=== PATIENT | female | born 1940 | race Caucasian/White ===

== ENCOUNTER 2023-07-10 00:26 | Emergency (ER) | payer MEDICARE, SELFPAY ==
[2023-07-10] VITALS (11 sets, daily range): BP systolic 197–246; BP diastolic 75–161; BMI 21.6
--- NOTE | 2023-07-10 02:26 | ED.GENMED ---
History of Present Illness
<CADEN Solomon - Last Filed: 07/10/23 05:53>
General
Chief Complaint: Breathing Problem
Source: patient
Exam Limitations: altered mental status
Time Seen by Provider: 07/10/23 02:01
Nursing documentation reviewed up to this point in time: agreed with
Travel History
Have you had any contact with someone who has COVID-19?: No
Do you have any symptoms of coronavirus? Fever > 100 degrees, chills, cough, shortness of breath, sore throat, loss of taste or smell, muscle aches, or headache?: No
History of Present Illness
History of Present Illness:
This is a 82 year old female with history CVA, impaired memory, AAA w/o rupture, CHF, COPD who presents to the ED via ambulance for shortness of breath. Patient is a poor historian and cannot recall why she is at the emergency room. She lives at
home with her son who called the ambulance due to progressive SOB. She received 1 duo neb treatment enroute. She feels comfortable and does not feel like she is SOB. She denies any pain, chest pain, headache, fever or chills.
Past History
<CADEN Solomon - Last Filed: 07/10/23 05:53>
Past History
ED Past Medical History: CVA, HTN, Hypercholesterolemia, Psychiatric (anxiety/depression) and Other (GI bleed)
ED Past Surgical History: Cholecystectomy and Gynecological
Social History
Tobacco: Non-smoker
Alcohol: None
Drug: None
Personal: Other
Living: with family
Employment: Not employed
Family History
Family History: Unable to obtain
Review of Systems
<CADEN Solomon - Last Filed: 07/10/23 05:53>
Review of Systems
Allergies reviewed?: Yes
Unable to obtain full review of systems at this time due to: other
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
All Other Systems: Not applicable
Constitutional: Reports no symptoms
EENT: Reports no symptoms
Respiratory: Reports trouble breathing
Cardiac: Reports no symptoms
ABD/GI: Reports no symptoms
: Reports no symptoms
Musculoskeletal: Reports no symptoms
Skin: Reports no symptoms
Neurological: Reports no symptoms
Endocrine: Reports no symptoms
Hematologic/Lymphatic: Reports no symptoms
Psychiatric: Reports no symptoms
Phy Exam
<CADEN Solomon - Last Filed: 07/10/23 05:53>
General Physical Exam
General Presentation: well appearing and no apparent distress
General Skin: warm and dry
General Habitus: normal
General Mental: alert
General Hydration: appears well hydrated
ENT Exam
ENT Exam: EOMI, pharynx normal, neck supple and normocephalic
Eye Exam
Eye Exam: PERRL, cornea clear and conjunctiva normal
Cardiovascular Exam
Cardiovascular Exam: regular rate/rhythm, no edema, no murmur and normal peripheral pulses
Pulmonary Exam
Pulmonary Exam: no respiratory distress, no stridor and generalized wheezing
Cough: productive cough
Breath Sounds: Wheeze: generalized and Rhonchi: generalized
Gastrointestinal Exam
Gastrointestinal Exam: normal bowel sounds, non tender, soft, no organomegaly, no pulsatile mass and non distended
Neurological Exam
Neurological Exam: alert, oriented x3, no motor deficits and speech normal
Musculoskeletal Exam
Musculoskeletal Exam: full ROM and no edema
Skin Exam
Skin Exam: normal color, warm/dry, no rash and no petechia
Psychiatric Exam
Psychiatric Exam: normal mood/affect
Scores
<CADEN Solomon - Last Filed: 07/10/23 05:53>
Heart Failure Risk
Heart Failure Risk Score: Not Applicable
Course
<CADEN Solomon - Last Filed: 07/10/23 05:53>
Orders/Labs/Results
Orders:
Orders
07/10/23 02:19
Electrocardiogram (*1) Urgent
Reason for Study: Shortness of Breath
EKG- Treatment ONCE
CR Chest - 2 Views Urgent
Comment:
Reason For Exam: cough, SOB
07/10/23 02:46
Complete Blood Count/With Diff Urgent
Comprehensive Metabolic Panel Urgent
NT-proBNP Urgent
Troponin I Urgent
Abnormal Lab Results
07/10/23
02:46
MCHC 32.5 L g/dL
(33.0-37.0)
MPV 10.6 H fL
(7.4-10.4)
Chloride 108 H mmol/L
(98-107)
Carbon Dioxide 31 H mmol/L
(22-30)
BUN 20 H mg/dl
(7-17)
Alkaline Phosphatase 128 H U/L
(38-126)
07/10/23 02:46
07/10/23 02:46
Vital Signs
Initial and Last Documented VS:
Initial Vital Signs
Temp Pulse Resp Pulse Ox
97.6 F 100 26 97
07/10/23 00:28 07/10/23 00:28 07/10/23 00:28 07/10/23 00:28
Last Documented Vital Signs
Temp Pulse Resp BP Pulse Ox
97.6 F 86 17 205/80 96
07/10/23 00:28 07/10/23 05:00 07/10/23 05:00 07/10/23 05:00 07/10/23 05:00
<Rain Whittington DO - Last Filed: 07/10/23 06:48>
Orders/Labs/Results
Orders:
Orders
07/10/23 02:19
Electrocardiogram (*1) Urgent
Reason for Study: Shortness of Breath
EKG- Treatment ONCE
CR Chest - 2 Views Urgent
Comment:
Reason For Exam: cough, SOB
07/10/23 02:46
Complete Blood Count/With Diff Urgent
Comprehensive Metabolic Panel Urgent
NT-proBNP Urgent
Troponin I Urgent
Abnormal Lab Results
07/10/23
02:46
MCHC 32.5 L g/dL
(33.0-37.0)
MPV 10.6 H fL
(7.4-10.4)
Chloride 108 H mmol/L
(98-107)
Carbon Dioxide 31 H mmol/L
(22-30)
BUN 20 H mg/dl
(7-17)
Alkaline Phosphatase 128 H U/L
(38-126)
07/10/23 02:46
07/10/23 02:46
Vital Signs
Initial and Last Documented VS:
Initial Vital Signs
Temp Pulse Resp Pulse Ox
97.6 F 100 26 97
07/10/23 00:28 07/10/23 00:28 07/10/23 00:28 07/10/23 00:28
Last Documented Vital Signs
Temp Pulse Resp BP Pulse Ox
97.6 F 86 17 205/80 96
07/10/23 00:28 07/10/23 05:00 07/10/23 05:00 07/10/23 05:00 07/10/23 05:00
<CADEN Solomon - Last Filed: 07/10/23 05:53>
*Critical Care Note
Total Time (30-74mins, 75-104mins- exclusive of procedures): Not Applicable
<Rain Whittington DO - Last Filed: 07/10/23 06:48>
*Radiology
Radiology exam reviewed: preliminary read by ED provider (Chest x-ray is unremarkable)
*Pulse Oximetry
Patient hypoxic: no
*EKG
Interpreted by ED Provider?: Yes
Interpretation: normal
Rate: normal
Rhythm: sinus
[place]: left axis deviation
Interval: normal interval
QRS Pattern: normal QRS
Ischemia: no ischemia
*Store Manager Interpretation
Rate: normal
Interpretation: normal
Rhythm: sinus
ED Attending Note
<CADEN Solomon - Last Filed: 07/10/23 05:53>
-
Portions of this chart may have been created with voice recognition software.� Occasional wrong word or��sound alike� substitutions may have occurred due to the inherent limitations of voice recognition software.
<Rain Whittington DO - Last Filed: 07/10/23 06:48>
ED Attending Note
Patient seen and examined by attending physician: Yes
I performed the substantive portion of visit, reviewed & personally made and approve the management plan that is documented in note by myself or DENISE.: Yes
I performed a history and physical exam of patient and discussed management with resident, I reviewed resident's note and agree with documented findings and plan of care.: Yes
ED Attending Note:
This is an 82-year-old woman who resides at home with her sons. She has prior history of CVA, chronic left hemiparesis, chronically wheelchair-bound/nonambulatory. She has history of chronic, poorly controlled hypertension, pulmonary hypertension,
COPD, hyperlipidemia with last hospitalization November 2020 for treatment of acute hypoxic respiratory insufficiency related to COPD exacerbation as well as hypertensive emergency causing transient acute CHF.
She has history of dementia/poor short-term memory and is a poor historian.
She is brought to the ED via EMS for shortness of breath that is apparently began this afternoon, worsening throughout the evening. She did receive a DuoNeb nebulizer treatment via EMS en route to the hospital.
She is currently feeling well, denies shortness of breath, denies chest pain. She is unsure who called 911 and cannot recall recent events.
She does admit to occasional cough but does not believe she has had a fever.
She denies recent falls, and denies pain.
She does believe she is maintained on medication but cannot recall the names.
GENERAL: 82-year-old woman appears her stated age, appears somewhat chronically debilitated but is awake and alert, oriented x 1. Appears in no acute distress. She is bright and alert, pleasant. Respirations are easy nonlabored. Rare brief dry
cough is noted. Able to speak in full sentences without difficulty.
EYE: pupils equal and reactive. anicteric
NECK: Supple, nontender, no meningismus, no significant adenopathy. Minimal JVD.
ENT: oral mucosa is moist. No rhinorrhea.
CARDIAC: Regular rate and rhythm. no murmur.
LUNGS: no acute respiratory distress, harsh expiratory rhonchi bilaterally.
ABDOMEN: Soft, nondistended, without focal tenderness, normoactive BS.
NEUROLOGICAL: Awake and alert, oriented x 1, left hemiparesis.
SKIN: Warm and dry, minimally pale in color, skin intact. No rash.
MUSCULOSKELETAL: No C/C/E. peripheral pulses are full and equal b/l. No palpable tenderness.
PSYCH: Normal and appropriate interaction.
Concern for exacerbation of COPD, acute CHF, pneumonia.
Significant systolic hypertension noted. Similar systolic hypertension noted on previous visits.
Will check labs, EKG and chest x-ray.
Currently overall comfortable, no respiratory distress, normal pulse ox, afebrile.
07/10/2023 0644 AM
Patient continues to appear comfortable. She does have some expiratory wheezing and rare cough but no respiratory distress. Normal pulse ox.
Labs are unremarkable and reassuring.
Chest x-ray is unremarkable.
I have spoken with her son, Masoud via a telephone call. Due to prior stroke, wheelchair-bound status they have difficulty getting her out of the house thus she has not followed up with a PCP, has been on no medications for quite some time.
Currently appears to have mild exacerbation of COPD but no indication for hospitalization. Will treat with tapering course of prednisone and albuterol for as needed cough, wheezing.
Recommend we resume her previous antihypertensive medications which include lisinopril 10 mg daily, Procardia XL 30 mg daily and recommend resumption of atorvastatin as well.
Would hold off on low-dose aspirin due to prior history of GI bleed.
There is no evidence of CHF thus we will hold off on diuretic.
I have placed a case management consult to help arrange for home health nurse visit, safety evaluation as well as request assistance to establish with a PCP, preferably 1 that makes home visits versus PCP coordination with home health nurse visit.
Both patient and son agreeable with this plan.
Discharge Plan
Departure
Patient Disposition: Home (Routine Discharge)
Date of Disposition: 07/10/23
Time of Disposition: 06:24
Patient with high blood pressure during this ER visit?: No
Condition: Good
Discharge Problem:
COPD exacerbation, Poorly-controlled hypertension
Instructions: Exacerbation of COPD (DC)
Prescriptions:
New
atorvastatin 40 mg tablet
40 mg PO QPM Qty: 30 3RF
albuterol sulfate [ProAir HFA] 90 mcg/actuation Hfa Aerosol Inhaler
2 puff INHALATION Q4HPRN PRN (Reason: shortness of breath/cough) Qty: 90 0RF
Rx Instructions:
Dispense with spacer
lisinopril 10 mg tablet
10 mg PO DAILY Qty: 30 3RF
nifedipine [Procardia XL] 30 mg tablet extended release 24hr
30 mg PO DAILY Qty: 30 3RF
prednisone 10 mg Tablet
See Rx Instructions .ROUTE .COMPLEX Qty: 30 0RF
Rx Instructions:
Take By Mouth:
40 mg daily x3 days, 30 mg daily x3 days,
20 mg daily x3 days, 10 mg daily x3 days.
No Action
acetaminophen [Tylenol] 325 mg Capsule
650 mg PO Q4H PRN (Reason: mild pain)
metoprolol succinate [Toprol XL] 25 mg tablet extended release 24 hr
12.5 mg PO DAILY Qty: 20 1RF
Referrals:
NONE,* [Family Provider] -
Interventions
Interventions:
*Risk Screen - Suicide Last Done: 07/10/23 00:28
*General Assessment Last Done: 07/10/23 00:28
*Neglect/Abuse Screening Last Done: 07/10/23 00:28
ED- Fall Risk Assessment Last Done: 07/10/23 00:39
*ED COVID-19 Vaccine History Last Done: 07/10/23 00:39
ED- Cardiac Assessment Last Done: 07/10/23 00:39
ED- Pulmonary Assessment Last Done: 07/10/23 00:39
Discharge Date and Time
Print Language: FILIPINO
[2023-07-10 03:04] LABS: % Eosinophils 5.7 % (0-6); % Immature Granulocytes 0.2 % (0-0.5); % Lymphocytes 23.1 % (20.5-51.1); % Monocytes 7.6 % (1.7-9.3); % Neutrophils 62.4 % (42.2-75.2); Absolute Basophils 0.1 10^3/uL (0-0.2); Absolute Eosinophils 0.4 10^3/uL (0-0.7); Absolute Lymphocytes 1.5 10^3/uL (1.2-3.4); Absolute Monocytes 0.5 10^3/uL (0.1-0.6); Absolute Neutrophils 3.9 10^3/uL (1.4-6.5); Hematocrit 38.2 % (37.0-47.0); Hemoglobin 12.4 g/dL (12.0-16.0); Mean Corp Hgb Conc. 32.5 g/dL (33.0-37.0); Mean Corpuscular Hgb 28.6 pg (27.0-31.0); Mean Platelet Volume 10.6 fL (7.4-10.4); Nucleated Red Blood Cells % 0 %; Platelet Count 229 10^3/uL (130-400); Red Blood Cell Count 4.34 10^6/uL (4.20-5.40); Red Cell Dist. Width 14.5 % (11.5-14.5); White Blood Cell Count 6.3 10^3/uL (4.8-10.8)
[2023-07-10 03:26] LABS: ALT (SGPT) 11 U/L (0-35); AST (SGOT) 21 U/L (14-36); Albumin 3.8 g/dl (3.5-5.0); Alkaline Phosphatase 128 U/L (38-126); Blood Urea Nitrogen 20 mg/dl (7-17); Calcium 9.1 mg/dl (8.4-10.2); Carbon Dioxide 31 mmol/L (22-30); Chloride 108 mmol/L (98-107); Estimated Creatinine Clearance 46 ml/min; Glucose 90 mg/dl (70-99); Potassium 3.9 mmol/L (3.5-5.1); Sodium 142 mmol/L (135-145); Total Bilirubin 0.4 mg/dl (0.2-1.3); eGFR > 60.00
[2023-07-10 03:39] LABS: NT-proBNP 597 pg/ml; Troponin I < 0.012 ng/ml
[2023-07-10] MEDS: DECADRON 10 MG IV (06:58)
[2023-07-10] MEDS: DUONEB 3 ML INH (06:58)
--- NOTE | 2023-07-10 09:03 | CM ---
CM following re: discharge planning.
CM consulted to assist the pt with setting up PCP and VN services.
Reviewed pt's chart, spoke to pt's son over the phone. Pt left before seeing by CM.
Per son, pt lives with 2 sons in a [place], 1 step to enter, has 2 supportive sons and they help daily. Pt ambulates with a walker, had [facility] in the past and was at [facility] in 2020.
Per son, pt has not been seen by PCP for a few years, her PCP was Tamela Woods and pt's son is not sure whether or not pt still can go to her PCP. CM advised to call PCP office to schedule an appointment. In meantime, pt's son agrees to make a
referral to [facility] and they do have a program to assign a PCP. Pt's son expressed his agreement.
A referral to [facility] care [facility]N made.
PCP: Tamela Woods in the past. [facility] will assign a new PCP
[facility]
D/C plan: home with [facility] and family support
== END 2023-07-10 08:00 | disposition home or self-care (01) ==
LOC: EMR 00:26
PROVIDERS: EMERGENCY PHYSICIAN Emergency Medicine
DX: J44.1 Chronic obstructive pulmonary disease with (acute) exacerbation (principal); I11.0 Hypertensive heart disease with heart failure; I50.9 Heart failure, unspecified; F03.90 Unspecified dementia, unspecified severity, without behavioral disturbance, psychotic disturbance, mood disturbance, and anxiety; E78.00 Pure hypercholesterolemia, unspecified; Z86.79 Personal history of other diseases of the circulatory system; Z90.49 Acquired absence of other specified parts of digestive tract; Z99.3 Dependence on wheelchair
CPT/HCPCS: 99283; 94640; 96374; 71046; 80053; 83880; 84484; 85025; 93005

== ENCOUNTER 2023-12-08 15:13 | Inpatient (IN) | payer MEDICARE, SELFPAY ==
[2023-12-08] VITALS (8 sets, daily range): BP systolic 135–177; BP diastolic 50–97
--- NOTE | 2023-12-08 09:15 | ED.GENMED ---
History of Present Illness
General
Chief Complaint: Rectal Bleeding
Source: patient
Time Seen by Provider: 12/08/23 08:54
History of Present Illness
History of Present Illness:
83-year female with past medical history of CVA with residual chronic left sided deficits, hypertension, hyperlipidemia, previous upper GI bleeding presenting to the emergency department for evaluation from home after patient reported lower
abdominal pain this morning and reportedly dark stool and 1 episode of nonbloody nonbilious emesis. At time of my examination patient is without any specific complaints. History is limited from the patient due to baseline dementia. Patient denies
to me any chest pain, abdominal pain, nausea, vomiting or any other concerns presently.
Past History
Past History
ED Past Medical History: CVA, HTN, Hypercholesterolemia, Psychiatric (anxiety/depression) and Other (GI bleed)
ED Past Surgical History: Cholecystectomy and Gynecological
Social History
Tobacco: Non-smoker
Alcohol: None
Drug: None
Personal: Other
Living: with family
Employment: Not employed
Family History
Family History: Unable to obtain
Review of Systems
Review of Systems
All Other Systems: ROS reviewed and negative except as documented in HPI and ROS
Phy Exam
Physical Exam
Physical Exam:
GENERAL: Alert , in no apparent distress, smiling and pleasantly demented
EYE: clear conjunctiva b/l
HEAD: NCAT
ENT: o/p clr, mmm.
CARDIAC: Regular rate and rhythm, occasional PAC on telemetry .
LUNGS: Clear breath sounds bilaterally, no acute respiratory distress, no wheezes/rales/rhonchi
ABDOMEN: Soft, without focal tenderness, no r/g, no cvat
RECTAL: stool light brown, trace heme positive
NEUROLOGICAL: Alert and oriented
SKIN: Warm and dry, skin intact.
MUSCULOSKELETAL: well perfused.
PSYCH: Normal and appropriate interaction.
Scores
Heart Failure Risk
Heart Failure Risk Score: Not Applicable
Heart Score for Chest Pain Patients
STEMI patient?: Not applicable
Withdrawal Assessment of Alcohol
Withdrawal Assessment Completed?: Not applicable
Course
Orders/Labs/Results
Orders:
Orders
12/08/23 09:13
Type+Screen Urgent
Complete Blood Count/With Diff Urgent
Comprehensive Metabolic Panel Urgent
Lipase Urgent
PTT Urgent
Prothrombin Time Urgent
Diphenhydramine [Benadryl] 50 mg IV NOW STA
Hydrocortisone Sod Succinate [Solu-Cortef] 200 mg IV NOW STA
12/08/23 09:56
0.9% Sodium Chloride 1000 ml [Nss] 1,000 ml IV BOLUS
12/08/23 09:57
CT Abd/pel (oral only)-DH Only Urgent
Comment:
Reason For Exam: lower abd pain, ? bleeding, vomiting
Iohexol [Omnipaque] See Protocol PO NOW STA
12/08/23 11:45
Urinalysis Reflex To Culture Urgent
Date Specimen was Collected: 12/08/23
Time Specimen was Collected: 11:44
Urine Microscopic Reflex Cult Urgent
Urine Culture Urgent
TATIANA Source: U
Specimen Description:
Date Specimen was Collected: 12/08/23
Time Specimen was Collected: 11:44
12/08/23 11:46
CT Head W/o Iv Contrast Urgent
Comment:
Reason For Exam: change in mental status, ? delirium
Abnormal Lab Results
12/08/23 12/08/23
09:13 11:45
MCHC 32.6 L g/dL
(33.0-37.0)
MPV 10.6 H fL
(7.4-10.4)
Absolute Neuts (auto) 7.2 H 10^3/uL
(1.4-6.5)
Absolute Monos (auto) 0.7 H 10^3/uL
(0.1-0.6)
Neutrophils % 75.9 H %
(42.2-75.2)
Lymphocytes % 15.2 L %
(20.5-51.1)
PT 15.4 H Sec
(11.4-14.6)
BUN 25 H mg/dl
(7-17)
Creatinine 1.5 H mg/dL
(0.6-1.0)
Glucose 110 H mg/dl
(70-99)
Lipase 339 H U/L
(23-300)
Urine Ketones Trace A
(Negative)
Ur Occult Blood Reflex 1+ A
(Negative)
Leukocyte Esterase Rfl 1+ A
(Negative)
Urine RBC 3-6 A /HPF
(0-2)
Urine WBC (Reflex) 11-15 A /HPF
(0-5)
Urine Bacteria (Reflex) Few A
(Negative)
12/08/23 09:13
12/08/23 09:13
Vital Signs
Initial and Last Documented VS:
Initial Vital Signs
Temp Pulse Resp Pulse Ox
98.5 F 92 18 97
12/08/23 08:54 12/08/23 08:54 12/08/23 08:54 12/08/23 08:54
Last Documented Vital Signs
Temp Pulse Resp BP Pulse Ox
98.5 F 103 24 177/60 95
12/08/23 08:54 12/08/23 12:30 12/08/23 12:15 12/08/23 12:00 12/08/23 12:30
MDM/Problems Addressed
Differential Diagnosis Includes:
possible early GI bleed, diverticulitis, colitis, gastroenteritis, anemia
MDM/Problems Addressed:
83-year-old female presenting to the emergency department for evaluation after she reportedly had lower abdominal pain this morning, 1 episode of bloody stool and 1 episode of nonbloody nonbilious emesis. Here patient's stool is light brown and
faintly heme positive. She is hemodynamically. Patient with no complaints at this time and states she otherwise feels well. Will check labs and CT imaging of the abdomen and pelvis. Reassessment following
Chronic conditions affecting care: Other (Previous GI bleed)
*Pulse Oximetry
Patient hypoxic: no
*Critical Care Note
Total Time (30-74mins, 75-104mins- exclusive of procedures): Not Applicable
Data Reviewed
Review of Other/Old Records Reveals: Labs and Records
Source: records and ambulance crew
Comment
Comment:
11:40 AM: Family is now at the bedside, they note that over the last week or so patient's mental status is seem to decline, patient very combative at home, hallucinating at times. Difficult to ascertain from family as to how long this has been
going on for the family states it does seem to be worse over a week. Question infectious etiology and possible urinary tract infection but I suspect there is a bigger component to dementia or other type delirium.
Patient Management
Discussion with other providers: Hospitalist
Escalation/DeEscalation of care consider admission/obs:
Patient CT scan shows the following:
IMPRESSION:
Extensive colonic diverticulosis without evidence of acute diverticulitis.
Groundglass opacities within the bilateral lower lobes and lingula measuring up to 2.1 cm, likely related to infectious process. Recommend follow-up CT to ensure resolution.
Infrarenal abdominal aortic aneurysm measuring 3.5 cm.
Moderately distended urinary bladder.
Question pneumonia however patient without cough, fevers or symptoms suggestive of pneumonia so will defer antibiotic to inpatient team. Given family's reported more acute symptoms over the last few days consider delirium. I do suspect that there
is underlying dementia which is the more likely cause. Given patient's age combined with her acute kidney injury and after mentioned symptoms will admit further evaluation and treatment. Hospitalist team aware and accepts for continued evaluation.
ED Attending Note
-
Portions of this chart may have been created with voice recognition software.� Occasional wrong word or��sound alike� substitutions may have occurred due to the inherent limitations of voice recognition software.
Discharge Plan
Departure
Patient Disposition: Admit
Date of Disposition: 12/08/23
Time of Disposition: 14:02
Presentation/result/management discussed w/ accepting MD/DO: Hospitalist
Discharge Problem:
YIN (acute kidney injury), Delirium
Prescriptions:
No Action
atorvastatin 40 mg tablet
40 mg PO QPM Qty: 30 3RF
nifedipine [Procardia XL] 30 mg tablet extended release 24hr
30 mg PO DAILY Qty: 30 3RF
latanoprost 0.005 % Drops
1 drp BOTH EYES HS
lisinopril 40 mg Tablet
40 mg PO DAILY
mirtazapine 7.5 mg Tablet
7.5 mg PO HS
cholecalciferol (vitamin D3) 1,250 mcg (50,000 unit) Tablet
1,250 mcg PO QWEEK
Referrals:
UNKNOWN - PT DOES,NOT KNOW [Family Provider] -
Interventions
Interventions:
*Risk Screen - Suicide Last Done: 12/08/23 08:54
*General Assessment Last Done: 12/08/23 08:54
*Neglect/Abuse Screening Last Done: 12/08/23 08:54
ED- Fall Risk Assessment Last Done: 12/08/23 08:54
*ED COVID-19 Vaccine History Last Done: 12/08/23 08:54
ML-Wjcfqd-Kuustcifet Assessment Last Done: 12/08/23 08:54
ED- Cardiac Assessment Last Done: 12/08/23 08:54
ED- Pulmonary Assessment Last Done: 12/08/23 08:54
Discharge Date and Time
Print Language: PANAMANIAN
[2023-12-08] MEDS: SOLU-CORTEF 200 MG IV (09:18)
[2023-12-08] MEDS: BENADRYL 50 MG IV (09:18)
[2023-12-08 09:25] LABS: % Basophils 0.6 % (0-2); % Eosinophils 0.7 % (0-6); % Immature Granulocytes 0.3 % (0-0.5); % Lymphocytes 15.2 % (20.5-51.1); % Monocytes 7.3 % (1.7-9.3); % Neutrophils 75.9 % (42.2-75.2); Absolute Basophils 0.1 10^3/uL (0-0.2); Absolute Eosinophils 0.1 10^3/uL (0-0.7); Absolute Lymphocytes 1.5 10^3/uL (1.2-3.4); Absolute Monocytes 0.7 10^3/uL (0.1-0.6); Absolute Neutrophils 7.2 10^3/uL (1.4-6.5); Hematocrit 41.1 % (37.0-47.0); Hemoglobin 13.4 g/dL (12.0-16.0); Mean Corp Hgb Conc. 32.6 g/dL (33.0-37.0); Mean Corpuscular Hgb 28.9 pg (27.0-31.0); Mean Corpuscular Volume 88.6 fL (81.0-99.0); Mean Platelet Volume 10.6 fL (7.4-10.4); Nucleated Red Blood Cells % 0 %; Platelet Count 266 10^3/uL (130-400); Red Blood Cell Count 4.64 10^6/uL (4.20-5.40); Red Cell Dist. Width 14.3 % (11.5-14.5); White Blood Cell Count 9.5 10^3/uL (4.8-10.8)
[2023-12-08 09:32] LABS: INR 1.22; PT 15.4 Sec (11.4-14.6)
[2023-12-08 09:33] LABS: APTT 32.8 Sec (23.4-35.0)
[2023-12-08 09:34] LABS: ALT (SGPT) 15 U/L (0-35); AST (SGOT) 31 U/L (14-36); Albumin 4.8 g/dl (3.5-5.0); Alkaline Phosphatase 95 U/L (38-126); Blood Urea Nitrogen 25 mg/dl (7-17); Calcium 10.2 mg/dl (8.4-10.2); Carbon Dioxide 28 mmol/L (22-30); Chloride 101 mmol/L (98-107); Glucose 110 mg/dl (70-99); Lipase 339 U/L (23-300); Potassium 3.5 mmol/L (3.5-5.1); Sodium 145 mmol/L (135-145); eGFR 34.15
[2023-12-08] MEDS: NSS 1000 IV (10:29)
[2023-12-08] MEDS: OMNIPAQUE 50 ML PO (10:30)
[2023-12-08 12:13] LABS: Urine Albumin Trace (Neg - Trace); Urine Bilirubin Negative (Negative); Urine Character Clear (Clear); Urine Color Yellow; Urine Glucose Negative (Negative); Urine Ketone Trace (Negative); Urine Leukocyte 1+ (Negative); Urine Nitrite Negative (Negative); Urine Occult Blood 1+ (Negative); Urine Urobilinogen Negative (Neg - 1+)
[2023-12-08 12:22] LABS: Urine Squamous Cell 21-25 /LPF (Few)
[2023-12-08 12:23] LABS: Urine Amorphous Seen
[2023-12-08 12:28] LABS: Urine Bacteria Few (Negative)
[2023-12-08 12:29] LABS: Urine Granular Cast 0-2 /LPF (0)
--- NOTE | 2023-12-08 14:53 | HPS.HSE ---
Family Physician
-
Family Physician: NOT KNOW UNKNOWN - PT DOES
Chief Complaint
-
delirium, GI bleed
History of Present Illness
83 y/o F, hx of HTN, HLD, hx of CVA, hx of dementia, anxiety/depression presents to ER with family. They report 1 week decline in her mental status with more confusion and hallucinations compared to baseline (more alert, confused minimally in line
with dementia). This AM, son noticed that patient had blood on her sheet and states he noted what appeared to a bloody BM so brought her to ER For evaluation. No other symptoms reported. In ER, patient somnolent, more confused than baseline.
ER evaluation revealed YIN, heme+ stools
CT Abd negative for abdominal pathology, CT head negative
Medical History
Past Medical History
Past Medical History: Reports Other (hx of HTN, HLD, hx of CVA, hx of dementia, anxiety/depression)
Past Surgical History: Reports Cholecystectomy and Other (hysterectomy)
Social History
Unable to obtain full social history at this time due to: Dementia
Tobacco: Non-smoker
Alcohol: None
Personal:
Living: With Family
Employment: Not Employed
Family History
Family History: Not pertinent
Allergies / Home Medications
Allergies reflects when Allergies were last updated in [employer].
Home Medications with original date entered in [employer]
Allergy/Medication List:
Allergies
Allergy/AdvReac Type Severity Reaction Status Date / Time
aspirin Allergy Unknown internal Verified 01/15/22 11:38
bleeding,avoids
due to GI
bleed
codeine Allergy Unknown Rash 'very Verified 01/15/22 11:38
sick'
Iodinated Contrast Media Allergy LIVER Verified 01/15/22 11:38
[Iodinated Contrast Media - FAILURE;
IV Dye] lip
swelling
penicillin Allergy Unknown Rash Uncoded 01/15/22 11:40
Home Medications
atorvastatin 40 mg tablet 40 mg PO QPM #30 tabs 07/10/23
nifedipine 30 mg tablet,extended release 24 hr (Procardia XL) 30 mg PO DAILY #30 tabs 07/10/23
cholecalciferol (vitamin D3) 1,250 mcg (50,000 unit) tablet 1,250 mcg PO QWEEK 12/08/23
latanoprost 0.005 % eye drops 1 drp BOTH EYES HS 12/08/23
lisinopril 40 mg tablet 40 mg PO DAILY 12/08/23
mirtazapine 7.5 mg tablet 7.5 mg PO HS 12/08/23
Review of Systems
-
Unable to obtain full review of systems at this time due to: Acuity
Physical Exam
Vital Signs
Vital Signs
Temp Pulse Resp BP Pulse Ox
98.5 F 103 17 177/60 95
12/08/23 08:54 12/08/23 12:30 12/08/23 14:00 12/08/23 12:00 12/08/23 12:30
Physical Exam
General: No Apparent Distress and Appears Chronically Ill
HEENT: NormoCephalic and Anicteric
Respiratory: No Wheezes
Cardiac: S1/S2 and Regular Rhythm
GI: Soft and Non Distended
Neuro: Other (lethargic)
Psych: Calm
Laboratory Results
-
12/08/23 09:13
12/08/23 09:13
Laboratory Results
PT 15.4 Sec (11.4-14.6) H 12/08/23 09:13
INR 1.22 12/08/23 09:13
APTT 32.8 Sec (23.4-35.0) 12/08/23 09:13
Total Bilirubin 1.0 mg/dl (0.2-1.3) 12/08/23 09:13
AST 31 U/L (14-36) 12/08/23 09:13
ALT 15 U/L (0-35) 12/08/23 09:13
Alkaline Phosphatase 95 U/L (38-126) 12/08/23 09:13
Lipase 339 U/L (23-300) H 12/08/23 09:13
Data Reviewed
-
CT Scan: Report Reviewed by me
Lab Data: Labs Reviewed by me
Impression/Plan
-
Assessment:
Acute TME - unclear etiology
History of underlying dementia, unknown subtype
- CT head negative, consider MRI
- EEG
- metabolic workup ordered, b12, folate, TSH, Ammonia
- UA slightly positive; check culture
- CT abd: Ground-glass opacities within the bilateral lower lobes and lingula measuring up to 2.1 cm, likely related to infectious process. dedicated CT chest ordered. ? aspiration -> ST eval.
- with above concerns for possible infections, start empiric Cefepime, day 1
YIN, likely pre-renal
- hold nephrotoxins
- check urine Na, Cr; bladder scans
- continue IVF
Suspected Lower GI bleed
- family reports bloody BM, blood on clothes
- CT with diverticulosis; possible diverticular bleed?
- Hb is currently stable although could be concentrated; will monitor closely
- GI consulted
Essential HTN with urgency
- holding Procardia and Lisinopril
- Prn Hydralazine ordered
HLD
Hx of CVA
- hold statin
anxiety/depression
- hold Remeron
DVT ppx: SCDs with concern of GI bleed
Code: Full
d/w son Masoud
--- NOTE | 2023-12-08 14:57 | CON.GI ---
Addendum entered and electronically signed by Yrn Rios MD 12/08/23 17:51:
I saw and examined the patient.
The RN HEMODIALYSIS CHARGE or PA's note was reviewed and I agree with the note.
Comment: Ms Cifuentes is a 83 yo F pmh as below including dementia presenting with altered mental status changes. Patient with some BRBPR per son - on mine and Sarah's exam scant amount of red (ER with trace brown heme negative). Patient hb stable 13.
I s/w son as well does NOT want any endoscopic procedure unless absolutely necessary given patient's age and dementia which is reasonable.
I will give some anusol if this is possibly hemorrhoidal, trend Hb.
Also there was some documentation about pt vomiting blood I clarified with son she coughed up blood. If pt vomits blood please call back GI.
Clear liquid tonight advance per hospitalist in am if pt tolerates well.
Work up per primary for AMS.
GI will sign off. Please call if patient has ongoing rectal bleeding with drop in Hb or vomits blood.
Original Note:
Consultation
-
Date/Time Consultation Requested: 12/08/23 1445
Date/Time Consultation Performed: 12/08/23 1500
Requesting Provider: Verónica Francois MD
Performing Provider: BAUTISTA Garzon, Genia Rios MD
Reason for Consultation: bloody stool
Medical History
Chief Complaint / HPI
Chief Complaint: rectal bleeding
History of Present Illness:
Pt is a 83yo with hx CVA, COPD, HTN, hypercholesterolemia, anxiety/depression, prior GI bleed with duodenal erosion brought into ER with change in mental status with lower abdominal pain and dark stool with vomiting. On admission noted with hbg
13.4, creat 1.5, lipase 339 , glucose 110 with otherwise stable labs. Pt completed HCT with prior thalamic infarct and CT A/p with noted diverticulosis, infrarenal AAA, distended bladder. In review with family pt was several days ago with change
in mental status and hallucinations. Family reviewed with PCP and pt slept well with improved mentation next day. She then was noted with recurrent issues with onset prior to admission. She was started on new Mitazapine which hager started AM of
discharge. She then was noted with noted with coughing vs vomiting up some small amount of blood but also note with dark stool and foul smelling stool with stool dark blood with normal brown regular stools. She also had some complaint of mild
abdominal pain.
Per pt and family she does complains of occasional ' lump' in rectal area with severe pain then symptoms will resolve. She denies dysphagia, GERD, vomiting, diarrhea, constipation or prior bleeding. No hx colonscopy in past.
12/2015- Salguti - Normal 2nd part of the duodenum. duodenal erosions, erythematous duodenopathy, erosive gastropathy, non obst schatzki's ring, tortuous esophagus no specimens collected
Past Medical History
Past Medical History: COPD, CVA, HTN, Hypercholesterolemia, Psychiatric (anxiety/depression) and Other (GI bleed)
Past Surgical History: Cholecystectomy and Gynecological
Social History
Tobacco: Former Smoker
Alcohol: Occasional
Drug: None
Living: With Family
Employment: Retired
Family History
Family History: Other (denies family hx colon CA or polyps, sister with perforation with colonoscopy in past )
Allergies / Home Medications
Allergy/AdvReac Type Severity Reaction Status Date / Time
aspirin Allergy Unknown internal Verified 01/15/22 11:38
bleeding,avoids
due to GI
bleed
codeine Allergy Unknown Rash 'very Verified 01/15/22 11:38
sick'
Iodinated Contrast Media Allergy LIVER Verified 01/15/22 11:38
[Iodinated Contrast Media - FAILURE;
IV Dye] lip
swelling
penicillin Allergy Unknown Rash Uncoded 01/15/22 11:40
�Medication �Instructions �Recorded
atorvastatin 40 mg tablet 40 mg PO QPM #30 tabs 07/10/23
nifedipine 30 mg tablet,extended 30 mg PO DAILY #30 tabs 07/10/23
release 24 hr (Procardia XL)
cholecalciferol (vitamin D3) 1,250 1,250 mcg PO QWEEK 12/08/23
mcg (50,000 unit) tablet
latanoprost 0.005 % eye drops 1 drp BOTH EYES HS 12/08/23
lisinopril 40 mg tablet 40 mg PO DAILY 12/08/23
mirtazapine 7.5 mg tablet 7.5 mg PO HS 12/08/23
Review of Systems
-
Unable to obtain full review of systems at this time due to: Other (pt poor historian )
History Source: Patient and Family
Constitutional: Reports No Symptoms
EENT: Reports No Symptoms
Respiratory: Reports No Symptoms
Abdomen/GI: Reports Abdominal Pain, Nausea, Vomiting, Bloody Stools and Other (occasional rectal pain)
: Reports No Symptoms
Musculoskeletal: Reports Other (arm weakness with prior CVA)
Skin: Reports No Symptoms
Neurological: Reports No Symptoms
Endocrine: Reports No Symptoms
Hematologic/Lymphatic: Reports Bleeding
Vital Signs
Temp Pulse Resp BP Pulse Ox
98.5 F 103 17 177/60 95
12/08/23 08:54 12/08/23 12:30 12/08/23 14:00 12/08/23 12:00 12/08/23 12:30
Physical Exam
Exam
General: Other (elderly female sleeping but awakens to voice with some soft voice and forgetfulness )
HEENT: Normocephalic and Anicteric
Respiratory: Clear
Cardiac: Other (tachy)
GI: Soft, Non Tender and Non Distended
Rectal: Other (no impaction some red blood in rectal vault, brown heme + per ER -- some limitation with ability to turn)
Musculoskeletal: No Clubbing and No Cyanosis
Skin: Warm and Dry
Neuro: Other (forgetful)
Psych: Calm
Results
WBC 9.5 10^3/uL (4.8-10.8) 12/08/23 09:13
Hgb 13.4 g/dL (12.0-16.0) 12/08/23 09:13
Hct 41.1 % (37.0-47.0) 12/08/23 09:13
MCV 88.6 fL (81.0-99.0) 12/08/23 09:13
Plt Count 266 10^3/uL (130-400) 12/08/23 09:13
Absolute Neuts (auto) 7.2 10^3/uL (1.4-6.5) H 12/08/23 09:13
PT 15.4 Sec (11.4-14.6) H 12/08/23 09:13
INR 1.22 12/08/23 09:13
APTT 32.8 Sec (23.4-35.0) 12/08/23 09:13
Sodium 145 mmol/L (135-145) 12/08/23 09:13
Potassium 3.5 mmol/L (3.5-5.1) 12/08/23 09:13
Chloride 101 mmol/L (98-107) 12/08/23 09:13
Carbon Dioxide 28 mmol/L (22-30) 12/08/23 09:13
BUN 25 mg/dl (7-17) H 12/08/23 09:13
Creatinine 1.5 mg/dL (0.6-1.0) H 12/08/23 09:13
Calcium 10.2 mg/dl (8.4-10.2) 12/08/23 09:13
Total Bilirubin 1.0 mg/dl (0.2-1.3) 12/08/23 09:13
AST 31 U/L (14-36) 12/08/23 09:13
ALT 15 U/L (0-35) 12/08/23 09:13
Alkaline Phosphatase 95 U/L (38-126) 12/08/23 09:13
Lipase 339 U/L (23-300) H 12/08/23 09:13
Diagnostic Image Results:
12/08/23 HCT
No acute intracranial abnormality noted.
Stable senescent changes with prior right thalamic lacunar infarction.
12/08/23 CT Abd/pel (oral only)-[facility] Only
Extensive colonic diverticulosis without evidence of acute diverticulitis.
Groundglass opacities within the bilateral lower lobes and lingula measuring up to 2.1 cm, likely related to infectious process. Recommend follow-up CT to ensure resolution.
Infrarenal abdominal aortic aneurysm measuring 3.5 cm.
Moderately distended urinary bladder.
Prior GI Procedures:
EGD: 12/2015- Salguti - Normal 2nd part of the duodenum. duodenal erosions, erythematous duodenopathy, erosive gastropathy, non obst schatzki's ring, tortuous esophagus no specimens collected
Colonoscopy: none
Assessment / Plan
-
Pt is a 83yo with hx CVA, COPD, HTN, hypercholesterolemia, anxiety/depression, prior GI bleed with duodenal erosion brought into ER with change in mental status with lower abdominal pain and dark stool with vomiting. On admission noted with hbg
13.4, creat 1.5, lipase 339 , glucose 110 with otherwise stable labs. Pt completed HCT with prior thalamic infarct and CT A/p with noted diverticulosis, infrarenal AAA, distended bladder 3mm pancreatic hypodensity in tail. In review with family
pt was several days ago with change in mental status and hallucinations. Family reviewed with PCP and pt slept well with improved mentation next day. She then was noted with recurrent issues with onset prior to admission. She was started on new
Mirtazapine which hager started AM of discharge. She then was noted with noted with coughing vs vomiting up some small amount of blood but also note with dark stool and foul smelling stool with stool dark blood with normal brown regular stools.
She also had some complaint of mild abdominal pain. No NSAID use
-change in mental status with hallucinations
-rectal bleeding
-vomiting/coughing up blood prior to admission
-mild lipase elevation
-ground glass opacity lower lungs
-YIN on admission
-bladder distention on CT with abnormal UA
-HTN urgency on admission
-hx GI bleed with duodenal ulcers
-3mm density pancreatic tail
-occasional rectal pain
-diverticulosis per imaging
other med problems:
-CVA
-COPD
-Hyperlipidemia
-anxiety/depression
PLAN:
etiology of rectal bleeding related to diverticular bleeding vs other-- CT as noted without colitis, inflammatory process or increased stool burden
pt also noted with new change in mental status with hallucination ? UTI with bladder distention and abnormal US vs other
current hbg stable at 13.4 on admission
reviewed finding with son agree with work up for mental status first and monitor GI symptoms
if persistent bleeding discussed colonoscopy with no prior screening -- son prefers to hold off unless further symptoms as sister with colon perforation during colonoscopy
unclear if she was vomiting or coughing up small amount of blood-- monitor for recurrent symptoms
if recurrent vomiting add PPI therapy and need for EGD
trend hbg/transfuse as needed
NPO for now
consider eventual repeat Ct with IV contrast if able for mild lipase elevation and 3 mm density pancreatic tail
-
-
Thank you for consultation and allowing me to participate in the patient's care. Please call the operations executive GI physician during the after hours with any questions or concerns.
[2023-12-08 16:04] LABS: Urine Sodium 78 mmol/L (30-90)
[2023-12-08] MEDS: MAXIPIME 1000 MG IV (19:13)
[2023-12-08] MEDS: D5/0.45%NACL 1000 IV (19:13)
[2023-12-08] MEDS: STERILE WATER FOR INJECTION 10 ML IV (19:13)
[2023-12-08] MEDS: ANUSOL HC 25 MG RECTAL (21:15)
[2023-12-08] MEDS: XALATAN OPHTHALMIC SOLUTION 1 DROP BOTH EYES (21:20)
[2023-12-09] MEDS: STERILE WATER FOR INJECTION 10 ML IV ×2 (06:00→17:23)
[2023-12-09] MEDS: MAXIPIME 1000 MG IV ×2 (06:00→17:22)
[2023-12-09 06:19] LABS: Hemoglobin 9.8 g/dL (12.0-16.0); Mean Corp Hgb Conc. 33.1 g/dL (33.0-37.0); Mean Corpuscular Hgb 29.3 pg (27.0-31.0); Mean Corpuscular Volume 88.6 fL (81.0-99.0); Mean Platelet Volume 10.5 fL (7.4-10.4); Platelet Count 194 10^3/uL (130-400); Red Blood Cell Count 3.34 10^6/uL (4.20-5.40); Red Cell Dist. Width 14.4 % (11.5-14.5); White Blood Cell Count 8.5 10^3/uL (4.8-10.8)
[2023-12-09 06:25] LABS: Ammonia < 9 umol/L (9-30)
[2023-12-09 06:54] LABS: Blood Urea Nitrogen 24 mg/dl (7-17); Calcium 8.7 mg/dl (8.4-10.2); Carbon Dioxide 26 mmol/L (22-30); Chloride 105 mmol/L (98-107); Estimated Creatinine Clearance 23 ml/min; Glucose 91 mg/dl (70-99); Potassium 3.3 mmol/L (3.5-5.1); Sodium 142 mmol/L (135-145); eGFR 40.55
[2023-12-09 07:07] LABS: Lipase 117 U/L (23-300)
--- NOTE | 2023-12-09 07:13 | PTCARENOTE ---
Pt's hgb dropped from 13.1 to 9.8. VSS and atts w/o blood present. CERTIFIED FLEX ENDOSCOPE REPROCESSOR notified. Q6H H&Hs ordered. Plan of care ongoing.
[2023-12-09 07:19] LABS: TSH Reflex To Free T4 1.26 uIU/ml (0.47-4.68)
[2023-12-09 07:54] VITALS: BP 172/67
[2023-12-09 07:55] LABS: Folate 12.5 ng/ml (2.76-20); Vitamin B12 336 pg/ml (239-931)
[2023-12-09] MEDS: D5/0.45%NACL 1000 IV (09:23)
--- NOTE | 2023-12-09 12:44 | W.PN.HOSP.TC ---
Today's Communication/Plan
-
continue IV Abx for UTI
VSE/ST eval
PT/OT
monitor Hb, cap IVF
Assessment / Plan
Assessment / Plan
Assessment:
Acute metabolic encephalopathy from UTI
History of underlying dementia, unknown subtype
- CT head negative. Defer MRI given improvement
- EEG pending
- metabolic workup otherwise negative
- Urine culture: GNB, continue Cefepime day 2
new 8 mm right upper lobe pulmonary nodule as well as multiple patchy areas of ground-glass airspace disease throughout both lungs
- inflammatory most likely, although cannot exclude malignancy
- possible aspiration? ST to evaluate and perform VSE
- continue Cefepime day 2
- PET scan recommended outpatient; also OP Pulmonary evaluation if GOC are to pursue lung biopsy
YIN, likely pre-renal
- hold nephrotoxins
- FeNa 1.1
- continue bladder scans
- cap IVF
- follow BMP
Suspected Lower GI bleed
- ddx: diverticular (CT with diverticulosis) vs hemorrhoidal
- Anusol available if needed
- no further evidence of GI bleed
- family opts against endoscopic procedures
Dilutional anemia, not acute blood loss anemia
- cap IVF, monitor Hb
Essential HTN with urgency
- resume Procardia
- hold Lisinopril
- prn Hydralazine ordered
HLD
Hx of CVA
- hold statin
anxiety/depression
- hold Remeron
Hypokalemia
- replete prn
DVT ppx: SCDs with concern of GI bleed; if Hb stable tomorrow and no evidence of GI bleed by tomorrow, start pharm prophylaxis
Code: Full
Anticipated Discharge: > 48 hours
Subjective/Interval History
-
Date of Service: December 09, 2023
more alert today
denies any complaints
Objective Data
-
Labs:
Laboratory Results
12/09/23 12/09/23 12/09/23
05:18 12:30 18:30
WBC 8.5
Hgb 9.8 L D Pending Pending
Hct 30.0 L Pending Pending
Plt Count 194 D
Sodium 142
Potassium 3.3 L
Chloride 105
Carbon Dioxide 26
BUN 24 H
Creatinine 1.3 H
Glucose 91
Calcium 8.7 D
Vital Signs:
Vital Signs
Temp Pulse Resp BP Pulse Ox
98.5 F 75 16 172/67 95
12/09/23 07:54 12/09/23 07:54 12/09/23 07:54 12/09/23 07:54 12/09/23 09:15
Physical Exam
-
General: No Apparent Distress
HEENT: Normocephalic and Atraumatic
Respiratory: Negative Wheezes
Cardiac: Regular Rhythm and S1/S2
GI: Soft
Genito-urinary: No Costovertebral Tender
Neuro: Awake and Alert
Psych: Apparent Dementia
Data Reviewed
-
Total Time Spent with Patient (in minutes): 42
Labs: Labs Reviewed by me
--- NOTE | 2023-12-09 12:53 | PTOTSP ---
SPEECH THERAPY SWALLOW EVALUATION:
Patient exhibits clinical signs of oropharyngeal dysphagia, likely chronic in patient with multiple predisposing dysphagia risk factors including dementia, CVA, and COPD. Patient with Chest CT demonstrating 'multiple patchy areas of groundglass
airspace disease throughout both lungs.' Patient remains at risk for aspiration and related complications given tenuous pulmonary status and confusion. No overt signs of aspiration at this time, though unable to exclude aspiration at bedside. Pt
endorsing dysphagia symptoms at baseline, though unclear as patient with significant confusion. Recommend Videofluoroscopic Swallowing Study to further assess swallow physiology at this time. Recommend IDDSI Level 6 Soft and Bite Size diet, thin
liquids until VSE. Medications whole with liquid as best tolerated. Aspiration precautions: 100% supervision and assistance as needed; Upright positioning; Small single sips/bites; Slow rate of intake; Only eat when awake/alert; Monitor for signs of
aspiration and d/c oral diet if any decline in mental or respiratory status. ST to follow with additional recommendations following VSE results. Discussed with pt, RN, and Dr. Francois. Patient initially hesitant about VSE, reporting concerns for
diarrhea, though eventually agreeable following extensive education regarding VSE procedure and rationale.
RECOMMEND:
1) Videofluoroscopic Swallowing Study
2) IDDSI Level 6 Soft and Bite Size diet, thin liquids
3) Medications whole with liquid as best tolerated
4) Aspiration precautions: 100% supervision and assistance as needed; Upright positioning; Small single sips/bites; Slow rate of intake; Only eat when awake/alert; Monitor for signs of aspiration and d/c oral diet if any decline in mental or
respiratory status
5) ST to follow with additional recommendations following VSE results
[2023-12-09] MEDS: PROCARDIA XL (EXTENDED RELEASE) 30 MG PO (13:27)
[2023-12-09] MEDS: KLOR-CON 40 MEQ PO (13:33)
[2023-12-09 14:17] LABS: Hematocrit 35.8 % (37.0-47.0); Hemoglobin 11.9 g/dL (12.0-16.0)
--- NOTE | 2023-12-09 15:08 | PTOTSP ---
VIDEOFLUOROSCOPIC SWALLOWING STUDY:
Patient exhibits moderate oral and mild-moderate pharyngeal dysphagia, likely chronic related to history of dementia, CVA, and COPD. Patient exhibited aspiration during 1/2 trials of thin liquids via tsp with reflexive cough response. Aspiration of
tsp of thin liquid occurred before the swallow resulting from premature spillage of bolus/delayed swallow initiation, causing bolus to spill into airway from pyriform sinus prior to swallow initiation. No other aspiration or penetration events
occurred during examination. No significant pharyngeal stasis noted. Patient remains at risk for aspiration due to significantly delayed swallow initiation (at level of pyriform sinus for majority of consistencies), in conjunction with tenuous
pulmonary status and cognitive status/confusion. Recommend IDDSI Level 5 Minced and Moist diet, thin liquids. Medications crushed in puree. Aspiration precautions: 1:1 assist/100% supervision with meals; NO straws; Upright positioning; Chew
thoroughly; Small sips/bites; Slow rate of intake; Alternate textures; Ensure pt swallows prior to next bite; Only feed when awake/alert; Take breaks during meals; Do not eat when short of breath; Monitor for signs/symptoms of aspiration; D/c oral
diet if any decline in mental or respiratory status. Consider downgrade to Mildly-thick liquids should patient exhibit any worsened respiratory status. Speech therapy to follow at the acute care level to assess diet tolerance, modify as appropriate,
provide continued diagnostic swallow therapy as appropriate, and provide continued education regarding aspiration risks/precautions.
RECOMMEND:
1) IDDSI Level 5 Minced and Moist diet, thin liquids
2) Medications crushed in puree
3) Aspiration precautions: 1:1 assist/100% supervision with meals; NO straws; Upright positioning; Chew thoroughly; Small sips/bites; Slow rate of intake; Alternate textures; Ensure pt swallows prior to next bite; Only feed when awake/alert; Take
breaks during meals; Do not eat when short of breath; Monitor for signs/symptoms of aspiration; D/c oral diet if any decline in mental or respiratory status
4) Consider downgrade to Mildly-thick liquids should patient exhibit any worsened respiratory status
5) Speech therapy to follow at the acute care level
[2023-12-09 15:26] VITALS: BP 172/74
--- NOTE | 2023-12-09 18:08 | CM ---
Alert awake
forgetful at times patient who lives with her son Elier in a 2 story home with 2 steps to enter and 14 steps to bed/bathroom. She is assisted in activates of daily living.She has a stair glide and wheelchair at home.Will need PT OT for dc
planning.
No VN in past . No SNF hx
Pharmacy [facility]
PLAN Will need PT OT for dc planning
--- NOTE | 2023-12-09 18:20 | EEGC.RPT ---
Continuous EEG Report
Recording
Start Date of Data Reviewed: 12/09/23
End Date of Data Reviewed: 12/09/23
Done with Video Recording: Yes
Report
Study duration: 29 min, 32 sec
�TECHNICAL REMARKS:��This is a technically satisfactory eighteen channel record employing 21 disc electrodes applied according to a measured international 10-20 electrode placement system.��There were no significant technical difficulties.��The
study was done on a [employer] System.
�
CLINICAL INFORMATION: ��This is an 83 year old woman with encephalopathy. EEG was requested to look for epileptiform activity.
�
�
REPORT: �At the onset of the EEG, the patient is awake. The background activity consists of 8-8.5 Hz, persistent, posteriorly dominant, moderate amplitude, symmetric, and rhythmic activity. Anteriorly, it consists of a mixture of low voltage
indeterminate activity and 20-25 Hz, persistent, low amplitude, symmetric, and rhythmic activity. Intermittent generalized [id number] during wakefulness is seen. Stepwise intermittent photic stimulation (1-20 Hz) does not induce any
abnormalities. Hyperventilation is not performed. Drowsiness is characterized by low amplitude mixed frequency activity, roving eye movements, and decreased eye blinking and muscle artifact.
�
�IMPRESSION: �This is an abnormal awake and drowsy EEG due to a background slowing indicative of a mild encephalopathy, nonspecific in terms of etiology. There is no evidence of focal slowing or epileptiform activity.
�
[2023-12-09 20:49] LABS: Hematocrit 34.7 % (37.0-47.0); Hemoglobin 11.8 g/dL (12.0-16.0)
--- NOTE | 2023-12-09 21:00 | PTCARENOTE ---
Patient appears to be confused throughout shift, worsening throughout the night. Patient confused to place -- thinking she was in DH prior to being here, has been in [facility] since 12/07 on admission. Patient upset that her wheelchair is not present and
insisting this RN call her son at midnight tonight to verify status of wheelchair. Patient unable to bear weight on legs at all at start of shift when getting to the BSC -- took assist of 2 person, patient not able to offer assistance with standing
and remains too weak on her legs. Patient is not understanding why she is unable to get OOB right now and walk to the BR with staff. Patient keeps stating 'I'm sorry, but I don't recall this information. I seem to be going down, not up. I need to
process this more, I don't seem to be on the same page. I don't remember any of this.' Bed alarm maintained, call henderson within reach, will monitor.
[2023-12-09] MEDS: ANUSOL HC 25 MG RECTAL (22:25)
[2023-12-09] MEDS: XALATAN OPHTHALMIC SOLUTION 1 DROP BOTH EYES (22:26)
[2023-12-09 23:45] VITALS: BP 168/72
[2023-12-10] VITALS (9 sets, daily range): BP systolic 86–188; BP diastolic 50–94; PULSE 100–107; O2SAT 99
--- NOTE | 2023-12-10 00:45 | PTCARENOTE ---
BP elevated 168/72 with HR 100 -- PRN hydralazine provided, see MAR. Will recheck BP in one hour. Will continue to monitor.
[2023-12-10] MEDS: FLUSH (NSS) 1 FLUSH IV (00:53)
[2023-12-10] MEDS: APRESOLINE 5 MG IV ×2 (00:53→13:38)
[2023-12-10] MEDS: MAXIPIME 1000 MG IV ×2 (06:10→17:49)
[2023-12-10] MEDS: STERILE WATER FOR INJECTION 10 ML IV ×2 (06:11→17:50)
[2023-12-10 07:40] LABS: Hematocrit 33.4 % (37.0-47.0); Hemoglobin 11.1 g/dL (12.0-16.0); Mean Corp Hgb Conc. 33.2 g/dL (33.0-37.0); Mean Corpuscular Hgb 29.1 pg (27.0-31.0); Mean Corpuscular Volume 87.4 fL (81.0-99.0); Platelet Count 234 10^3/uL (130-400); Red Blood Cell Count 3.82 10^6/uL (4.20-5.40); Red Cell Dist. Width 14.2 % (11.5-14.5); White Blood Cell Count 9.5 10^3/uL (4.8-10.8)
[2023-12-10 07:46] LABS: Blood Urea Nitrogen 18 mg/dl (7-17); Calcium 8.9 mg/dl (8.4-10.2); Carbon Dioxide 27 mmol/L (22-30); Chloride 104 mmol/L (98-107); Estimated Creatinine Clearance 30 ml/min; Glucose 89 mg/dl (70-99); Potassium 3.2 mmol/L (3.5-5.1); Sodium 141 mmol/L (135-145); eGFR 55.55
[2023-12-10] MEDS: PROCARDIA XL (EXTENDED RELEASE) 30 MG PO (08:15)
[2023-12-10] MEDS: APRESOLINE IV (10:07)
[2023-12-10] MEDS: ZESTRIL PO (10:08)
--- NOTE | 2023-12-10 10:44 | PTCARENOTE ---
Went to give pRN hydralazine but SBP 99, held and made aware. new lisinopril order was held until seen by
--- NOTE | 2023-12-10 12:00 | W.PN.HOSP.TC ---
Today's Communication/Plan
-
start SC Heparin
continue IV Cefepime
K+ repletion
resume HANNAH
EKG for QTc baseline if prn meds for agitation needed. Prn restraints
Assessment / Plan
Assessment / Plan
Assessment:
Acute metabolic encephalopathy from UTI
History of underlying dementia, unknown subtype
- CT head negative. Defer MRI given improvement
- EEG negative
- metabolic workup otherwise negative
- Urine culture: GNB, continue Cefepime day 3
new 8 mm right upper lobe pulmonary nodule as well as multiple patchy areas of ground-glass airspace disease throughout both lungs
- inflammatory most likely, although cannot exclude malignancy. possible aspiration can also show these change
- ST eval with VSE: on IDDSI 5 diet
- continue Cefepime day 3
- PET scan recommended outpatient; also OP Pulmonary evaluation if GOC are to pursue lung biopsy
YIN, likely pre-renal
- hold nephrotoxins
- FeNa 1.1
- continue bladder scans
- cap IVF
- follow BMP
Suspected Lower GI bleed
- ddx: diverticular (CT with diverticulosis) vs hemorrhoidal
- Anusol available if needed
- no further evidence of GI bleed
- family opts against endoscopic procedures
Dilutional anemia, not acute blood loss anemia
- cap IVF, monitor Hb
Essential HTN with urgency
- resume Procardia, Lisinopril
- prn Hydralazine ordered
HLD
Hx of CVA
- hold statin
anxiety/depression
- continue Remeron
Hypokalemia
- replete prn
DVT ppx: SC Heparin
Code: Full
Anticipated Discharge: > 48 hours
Subjective/Interval History
-
Date of Service: December 10, 2023
no overnight events
Objective Data
-
Labs:
Laboratory Results
12/10/23
06:05
WBC 9.5
Hgb 11.1 L
Hct 33.4 L
Plt Count 234 D
Sodium 141
Potassium 3.2 L
Chloride 104
Carbon Dioxide 27
BUN 18 H
Creatinine 1.0
Glucose 89
Calcium 8.9
Vital Signs:
Vital Signs
Temp Pulse Resp BP Pulse Ox
97.8 F 102 18 99/70 93
12/10/23 08:18 12/10/23 10:03 12/10/23 08:18 12/10/23 10:13 12/10/23 08:18
I&O
12/09/23 12/10/23 12/11/23
06:59 06:59 06:59
Intake Total 720 / 720
Output Total 500 / 500
Balance 220 / 220
Physical Exam
-
General: No Apparent Distress
HEENT: Normocephalic and Atraumatic
Respiratory: Negative Wheezes
Cardiac: Regular Rhythm and S1/S2
GI: Soft and Nontender
Genito-urinary: No Costovertebral Tender
Neuro: Awake
Psych: Confused and Apparent Dementia
Data Reviewed
-
Total Time Spent with Patient (in minutes): 41
Labs: Labs Reviewed by me
[2023-12-10] MEDS: HALDOL 1 MG IM ×2 (13:35→20:56)
[2023-12-10] MEDS: HEPARIN 5000 UNITS SC ×2 (13:36→20:49)
[2023-12-10] MEDS: DESENEX/MITRAZOL/ZEASORB 1 APPLIC TOPICAL ×2 (13:36→20:48)
[2023-12-10] MEDS: ZOFRAN 4 MG IV (13:38)
[2023-12-10] MEDS: ZESTRIL 40 MG PO (14:23)
[2023-12-10] MEDS: KLOR-CON 40 MEQ PO (14:24)
[2023-12-10] MEDS: LIPITOR 40 MG PO (17:49)
--- NOTE | 2023-12-10 17:51 | PTCARENOTE ---
Pt making many attempts to get OOB. pt yelling at roommate calling her a bitch and accusingher of stealing She repeatedly called her a bitch despite diversion techniques. PT attempted to get OOB to find husbands belongings and repeatedly saying he
today despite being told he seven years ago. ordered haldol. Given as prescribed, EKG obtained first. Pt better and restraints never applied.
--- NOTE | 2023-12-10 17:53 | PTCARENOTE ---
Bladder scanned at 12 noon for 240 ml. pt unable to void. pt placed on bed aceves three times. I checked post void residual at 1745 and it was bladder scanned for 308. Diaper dry. PT drank 120 today
[2023-12-10] MEDS: ANUSOL HC 25 MG RECTAL (20:49)
[2023-12-10] MEDS: REMERON 7.5 MG PO (20:49)
[2023-12-10] MEDS: XALATAN OPHTHALMIC SOLUTION 1 DROP BOTH EYES (20:50)
--- NOTE | 2023-12-10 21:09 | PTCARENOTE ---
Pt. visibly agitated and attempting to get OOB at times. Pt. asking where her is and stating that he today. Even with attempts to reorient pt., pt. continues to be agitated calling this nurse a 'bitch' and telling all staff that we have
no idea what we are taking about. Pt. continues to state that she 'wants all of her stuff back and to stop stealing her cell phone because she paid for it.' Continued attempts to reorient pt. made by this nurse, however pt. remains confused and
uncooperative, berating the staff who are providing care. IM haldol administered as ordered for agitation. Med sitter and bed alarm in place for pt. safety. VSS at this time, plan of care continues.
[2023-12-11] MEDS: STERILE WATER FOR INJECTION 10 ML IV ×2 (04:55→11:31)
[2023-12-11] MEDS: MAXIPIME 1000 MG IV (04:56)
[2023-12-11 06:12] LABS: Hematocrit 32.8 % (37.0-47.0); Hemoglobin 11.1 g/dL (12.0-16.0); Mean Corp Hgb Conc. 33.8 g/dL (33.0-37.0); Mean Corpuscular Hgb 30.5 pg (27.0-31.0); Mean Corpuscular Volume 90.1 fL (81.0-99.0); Mean Platelet Volume 11.1 fL (7.4-10.4); Platelet Count 188 10^3/uL (130-400); Red Blood Cell Count 3.64 10^6/uL (4.20-5.40); Red Cell Dist. Width 14.3 % (11.5-14.5); White Blood Cell Count 8.6 10^3/uL (4.8-10.8)
[2023-12-11 06:43] LABS: Blood Urea Nitrogen 27 mg/dl (7-17); Calcium 9.2 mg/dl (8.4-10.2); Carbon Dioxide 23 mmol/L (22-30); Chloride 105 mmol/L (98-107); Estimated Creatinine Clearance 25 ml/min; Glucose 89 mg/dl (70-99); Potassium 4.3 mmol/L (3.5-5.1); Sodium 141 mmol/L (135-145); eGFR 44.64
[2023-12-11 07:27] VITALS: BP 115/50
--- NOTE | 2023-12-11 09:42 | W.PN.HOSP.TC ---
Today's Communication/Plan
-
prn Haldol, 1:1 virtual sitter, follow serial EKG for QTc
switch to Rocephin
DC planning to SNF
Assessment / Plan
Assessment / Plan
Assessment:
Acute metabolic encephalopathy from multi-drug resistant Citrobacter UTI
History of underlying dementia, unknown subtype with disturbing behaviors
- CT head negative. Defer MRI given improvement (less lethargic, back to baseline dementia)
- EEG negative
- metabolic workup otherwise negative
- Urine culture: multi-drug resistant Citrobacter
- switch to Rocephin, day 4 of Abx
- for behaviors, continue prn Haldol and 1:1 virtual sitter. QTc accept <470 on EKG
new 8 mm right upper lobe pulmonary nodule as well as multiple patchy areas of ground-glass airspace disease throughout both lungs
- inflammatory most likely, although cannot exclude malignancy. possible aspiration chronically (hx of dementia) can also show these change
- ST eval with VSE: on IDDSI 5 diet
- PET scan recommended outpatient; also OP Pulmonary evaluation if GOC are to pursue lung biopsy
YIN, likely pre-renal
- hold nephrotoxins
- FeNa 1.1
- continue bladder scans
- cap IVF
- follow BMP
Suspected Lower GI bleed
- ddx: diverticular (CT with diverticulosis) vs hemorrhoidal
- Anusol available if needed
- no further evidence of GI bleed
- family opts against endoscopic procedures
Dilutional anemia, not acute blood loss anemia
- cap IVF, monitor Hb
Essential HTN with urgency
- continue Procardia, Lisinopril
- prn Hydralazine ordered
HLD
Hx of CVA
- hold statin
anxiety/depression
- continue Remeron
Hypokalemia
- replete prn
DVT ppx: SC Heparin
Code: Full
Anticipated Discharge: > 48 hours
Subjective/Interval History
-
Date of Service: December 11, 2023
received 2 doses Haldol yesterday, resting comfortably today
on 1:1 virtual sitter
Objective Data
-
Labs:
Laboratory Results
12/11/23
05:09
WBC 8.6
Hgb 11.1 L
Hct 32.8 L
Plt Count 188
Sodium 141
Potassium 4.3 D
Chloride 105
Carbon Dioxide 23
BUN 27 H
Creatinine 1.2 H
Glucose 89
Calcium 9.2
Vital Signs:
Vital Signs
Temp Pulse Resp BP Pulse Ox
97.6 F 83 19 115/50 95
12/11/23 07:27 12/11/23 07:27 12/11/23 07:27 12/11/23 07:27 12/11/23 07:27
I&O
12/10/23 12/11/23 12/12/23
06:59 06:59 06:59
Intake Total 720 / 720 230 / 230
Output Total 500 / 500
Balance 220 / 220 230 / 230
Physical Exam
-
General: No Apparent Distress and Appears Chronically Ill
HEENT: Normocephalic and Atraumatic
Respiratory: Negative Wheezes
Cardiac: Regular Rhythm and S1/S2
GI: Soft
Genito-urinary: No Costovertebral Tender
Neuro: Awake
Psych: Calm, Confused and Apparent Dementia
Data Reviewed
-
Total Time Spent with Patient (in minutes): 41
Labs: Labs Reviewed by me
[2023-12-11] MEDS: HEPARIN 5000 UNITS SC ×2 (11:24→20:42)
[2023-12-11] MEDS: DESENEX/MITRAZOL/ZEASORB TOPICAL (11:25)
[2023-12-11] MEDS: ZESTRIL 40 MG PO (11:25)
[2023-12-11] MEDS: PROCARDIA XL (EXTENDED RELEASE) 30 MG PO (11:25)
[2023-12-11] MEDS: ROCEPHIN 1000 MG IV (11:31)
[2023-12-11 15:23] VITALS: BP 136/66
[2023-12-11] MEDS: LIPITOR 40 MG PO (17:47)
--- NOTE | 2023-12-11 17:54 | PTCARENOTE ---
Aiken Text to Priscila LUQUE about patients decreased urine output, we will continue to monitor
[2023-12-11] MEDS: REMERON 7.5 MG PO (20:42)
[2023-12-11] MEDS: ANUSOL HC 25 MG RECTAL (20:43)
[2023-12-11] MEDS: XALATAN OPHTHALMIC SOLUTION 1 DROP BOTH EYES (20:44)
[2023-12-11] MEDS: DESENEX/MITRAZOL/ZEASORB 1 APPLIC TOPICAL (21:04)
[2023-12-11 23:40] VITALS: BP 141/61
[2023-12-12 07:18] VITALS: BP 130/89
[2023-12-12] MEDS: PROCARDIA XL (EXTENDED RELEASE) 30 MG PO (07:29)
[2023-12-12] MEDS: DESENEX/MITRAZOL/ZEASORB 1 APPLIC TOPICAL ×2 (07:30→22:13)
[2023-12-12] MEDS: ZESTRIL 40 MG PO (07:30)
[2023-12-12] MEDS: HEPARIN 5000 UNITS SC ×2 (07:31→21:14)
[2023-12-12 08:37] LABS: Hematocrit 32.3 % (37.0-47.0); Hemoglobin 10.7 g/dL (12.0-16.0); Mean Corp Hgb Conc. 33.1 g/dL (33.0-37.0); Mean Corpuscular Hgb 29.5 pg (27.0-31.0); Mean Platelet Volume 11.2 fL (7.4-10.4); Platelet Count 209 10^3/uL (130-400); Red Blood Cell Count 3.63 10^6/uL (4.20-5.40); Red Cell Dist. Width 14.6 % (11.5-14.5); White Blood Cell Count 10.9 10^3/uL (4.8-10.8)
[2023-12-12 09:13] LABS: Blood Urea Nitrogen 32 mg/dl (7-17); Carbon Dioxide 23 mmol/L (22-30); Chloride 104 mmol/L (98-107); Estimated Creatinine Clearance 25 ml/min; Glucose 88 mg/dl (70-99); Potassium 4.3 mmol/L (3.5-5.1); Sodium 141 mmol/L (135-145); eGFR 44.64
[2023-12-12] MEDS: STERILE WATER FOR INJECTION 10 ML IV (10:08)
[2023-12-12] MEDS: ROCEPHIN 1000 MG IV (10:08)
--- NOTE | 2023-12-12 11:15 | W.PN.HOSP.TC ---
Addendum entered and electronically signed by Colt Wiggins DO 12/12/23 11:33:
Family concerned about right arm weakness, just noted today.
Very difficult examining her due to stiffness of right shoulder, elbow, wrist. Weak right hip flexor on exam.
Will consult neurology, discussed with Dr. Glover.
Original Note:
Today's Communication/Plan
-
Discharge planning
Assessment / Plan
Assessment / Plan
Gen-awake, alert, NAD
HEENT-NC, AT, anicteric, clear oral mm
Neck-supple
CV-reg, no M, +S1/S2
Lungs-clear B/L
Abd-soft, NT, ND
Ext-no edema
Musculoskeletal-no cyanosis, clubbing, left hand contracture
Skin-warm and dry
Acute metabolic encephalopathy - from multi-drug resistant Citrobacter UTI
History of underlying dementia, unknown subtype with disturbing behaviors
- CT head negative. Defer MRI given improvement (less lethargic, back to baseline dementia)
- EEG negative
- metabolic workup otherwise negative
UTI - Urine culture: multi-drug resistant Citrobacter. Can change to Bactrim.
- switch to Rocephin, day 4 of Abx
- for behaviors, continue prn Haldol and 1:1 virtual sitter. QTc accept <470 on EKG
new 8 mm right upper lobe pulmonary nodule as well as multiple patchy areas of ground-glass airspace disease throughout both lungs
- inflammatory most likely, although cannot exclude malignancy. possible aspiration chronically (hx of dementia) can also show these change
- ST eval with VSE: on IDDSI 5 diet
- PET scan recommended outpatient; also OP Pulmonary evaluation if GOC are to pursue lung biopsy
YIN, likely pre-renal -improved.
- hold nephrotoxins
- FeNa 1.1
- continue bladder scans, 296cc this a.m.
Suspected Lower GI bleed -hemoglobin relatively stable.
- ddx: diverticular (CT with diverticulosis) vs hemorrhoidal
- Anusol available if needed
- no further evidence of GI bleed
- family opts against endoscopic procedures
Dilutional anemia, not acute blood loss anemia
- cap IVF, monitor Hb
Essential HTN with urgency
- continue Procardia, Lisinopril
- prn Hydralazine ordered
HLD
Hx of CVA with left hemiparesis
- hold statin
anxiety/depression
- continue Remeron
Hypokalemia -resolved.
DVT ppx: SC Heparin
Code: Full
Dispo -anticipate SNF on discharge. Updated family on the phone.
Anticipated Discharge: Within 24 hours
Subjective/Interval History
-
Date of Service: December 12, 2023
Patient seen and examined. Some left hip pain.
Objective Data
-
Labs:
Laboratory Results
12/12/23
07:39
WBC 10.9 H
Hgb 10.7 L
Hct 32.3 L
Plt Count 209
Sodium 141
Potassium 4.3
Chloride 104
Carbon Dioxide 23
BUN 32 H
Creatinine 1.2 H
Glucose 88
Calcium 9.0
Vital Signs:
Vital Signs
Temp Pulse Resp BP Pulse Ox
98.8 F 90 16 130/89 95
12/12/23 07:18 12/12/23 07:29 12/12/23 07:18 12/12/23 07:29 12/12/23 07:18
I&O
12/11/23 12/12/23 12/13/23
06:59 06:59 06:59
Intake Total 230 / 230 240 / 240
Output Total 400 / 400
Balance 230 / 230 -160 / -160
Review of Systems
-
Unable to obtain full review of systems at this time due to: Dementia
History Source: Patient
All other systems: Reviewed and negative
--- NOTE | 2023-12-12 11:18 | CM ---
Addendum entered by Desire Phoenix 12/12/23 16:09:
Discussion with Dr. Wiggins, medically ready for dc
Denied at [facility], [facility] and [facility] following pending behaviors and trial off med-sitter
Discussion with nursing, has been without behaviors or Haldol
Will start med-sitter removal trial today
Original Note:
CM reviewed pt with nursing/Dom
Pt behavior free over night, remains on med-sitter
Call with son to discuss SNF
In agreement with SNF on dc- referrals and [facility] sent via [facility]
1st choice is [facility] 2). [facility] 3). [facility] 4) [facility]
Awaiting outcome of referrals- pt has qualifying stay
Discharge Disposition- SNF
[2023-12-12 13:51] LABS: Erythrocyte Sed Rate 68 mm/hour (0-20)
[2023-12-12 15:17] VITALS: BP 127/68
[2023-12-12] MEDS: TYLENOL 650 MG PO (15:20)
[2023-12-12] MEDS: DELTASONE 30 MG PO (15:21)
[2023-12-12] MEDS: LIPITOR 10 MG PO (17:01)
[2023-12-12] MEDS: REMERON 7.5 MG PO (21:15)
[2023-12-12] MEDS: ANUSOL HC 25 MG RECTAL (21:15)
--- NOTE | 2023-12-12 23:35 | PTCARENOTE ---
Staff went in to obtain vitals and notified this RN about oxygen saturation in low 70s on RA. VS obtained and placed on 6L NC. Respiratory and provider notified. Respiratory at bedside for nebulizer treatment. EKG obtained showing sinus tach with
frequent PVCs. Blood sugar and BP obtained, refer to rapid documentation. Provider at bedside ordering ABG and acetaminophen. Pt had rectal temp 100.9. Pt still struggling to breath and slightly improved to low 80s after breathing treatment. Rapid
response called. Pt transferred to ICU. refer to documentation.
[2023-12-12] MEDS: XOPENEX 1.25 MG INHALANT SOLUTION INH (23:38)
[2023-12-12 23:43] LABS: Glucose - Point of Care 184 mg/dl (70-99)
[2023-12-12 23:45] VITALS: BP 118/71
[2023-12-12 23:54] LABS: B.E. 1.1 mmol/L; HCO3 25.1 mmol/L (21-28); O2 Saturation % 93.5 % (94-98); PCO2 37 mmHg (32-35); PO2 62 mmHg (83-108); pH 7.44 (7.35-7.45)
[2023-12-12 23:56] LABS: O2 Therapy NRB 15 L
[2023-12-13] VITALS (46 sets, daily range): BP systolic 86–157; BP diastolic 32–66; PULSE 103–104; O2SAT 93; BMI 22.6
--- NOTE | 2023-12-13 00:15 | PTCARENOTE ---
Rec'd pt post rapid response on NRB mask & monitor, pt lethargic but arousable, oriented to person/ place, reoriented to time,left side w/ weakness from previous CVA, denies pain, CHG bath done on adm ; ST w/ pac's, weak distal pulses, skin
warm/pale rectal temp 100- had just received ofirmiv during Rapid response,o2 changed to hi flow 55 liters/ 100% per order, sat 95, lungs coarse, decreased, hypo bowel sounds, no bm, abd soft, no n/v, lester draining jacob urine
[2023-12-13 00:16] LABS: ALT (SGPT) 17 U/L (0-35); AST (SGOT) 29 U/L (14-36); Albumin 3.6 g/dl (3.5-5.0); Alkaline Phosphatase 70 U/L (38-126); Blood Urea Nitrogen 46 mg/dl (7-17); Calcium 9.4 mg/dl (8.4-10.2); Carbon Dioxide 24 mmol/L (22-30); Chloride 102 mmol/L (98-107); Estimated Creatinine Clearance 25 ml/min; Glucose 151 mg/dl (70-99); Sodium 137 mmol/L (135-145); Total Bilirubin 0.7 mg/dl (0.2-1.3); Total Protein 6.5 g/dl (6.3-8.2); eGFR 44.64
[2023-12-13] MEDS: OFIRMEV 100 IV (00:28)
[2023-12-13 00:32] LABS: Hematocrit 33.5 % (37.0-47.0); Hemoglobin 11.1 g/dL (12.0-16.0); Mean Corp Hgb Conc. 33.1 g/dL (33.0-37.0); Mean Corpuscular Volume 90.5 fL (81.0-99.0); Platelet Count 229 10^3/uL (130-400); Red Cell Dist. Width 14.4 % (11.5-14.5); White Blood Cell Count 13.1 10^3/uL (4.8-10.8)
[2023-12-13 00:48] LABS: APTT 39.8 Sec (23.4-35.0)
[2023-12-13] MEDS: XALATAN OPHTHALMIC SOLUTION BOTH EYES (00:50)
--- NOTE | 2023-12-13 01:00 | PTCARENOTE ---
B DANA Cash aware of trop result, order to repeat in am, both sons at bedside & updated on pt status, Pt made limited DNR per order
[2023-12-13 01:04] LABS: INR 1.52; PT 18.1 Sec (11.4-14.6)
[2023-12-13 01:15] LABS: Troponin I 0.131 ng/ml
--- NOTE | 2023-12-13 01:19 | W.PN.UPDATE ---
Update Note
Progress Note Update
Responded to rapid response for patient desaturating and tachypneic. Ofirmiv IV given for rectal temp 100.7 F. Xopenex neb, CXR portable , EKG, BMP, ABG. Patient is full code transferred to ICU in the event invasive ventilation was necessary. NIV
begun after transfer to maintain >90%. Spoke with her son who will be coming in to see her. He believes she would not want to be 'on a ventilator'.
[2023-12-13] MEDS: NSS 250 IV (01:30)
--- NOTE | 2023-12-13 01:30 | PTCARENOTE ---
B DANA Cash aware of low bp, 250nss bolus humg per order
[2023-12-13 01:35] LABS: Phosphorus 3.3 mg/dl (2.5-4.5)
--- NOTE | 2023-12-13 03:52 | PTCARENOTE ---
elbas reviewed, Tyrone Cash NP aware of decr urine output, 1 liter nss hung at 50ml/hr per order, hi flow decr to 50 Liters/ 70% by resp therapist, lungs decr
[2023-12-13] MEDS: NSS 1000 IV (03:55)
--- NOTE | 2023-12-13 04:34 | PTCARENOTE ---
hi flow decr to 50 liters/ 50% by resp therapist
--- NOTE | 2023-12-13 05:32 | PTCARENOTE ---
since pt sleeping & mouth breathing, resp changed pt to simple mask 8 liters- sat 95
[2023-12-13 05:39] LABS: Troponin I 0.139 ng/ml
--- NOTE | 2023-12-13 08:27 | CON.INTV ---
Consultation
Consultation Request
Date/Time Consultation Requested: 12/13/2023-7:30 AM
Date/Time Consultation Performed: 12/13/2023-7:30 AM
Requesting Provider: Hospitalist
Performing Provider: Dr. Garcia
Reason for Consultation: Hypoxemia/critical care management
Medical History
-
Chief Complaint: Shortness of breath
History of Present Illness:
83-year-old female patient with a history of hypertension, hyperlipidemia, stroke and dementia who presented with mental status changes, urinary tract infection and required increased FiO2 requirements transferred to ICU and content specialist consulted
for critical care management 12/13/2023. The patient feels improved on oxygen. She desaturates but comes up quickly. She denies any shortness of breath, chest pain, productive cough, pleurisy, abdominal pain, weakness or lower extremity swelling.
She does have underlying dementia and history is somewhat unreliable.
Past Medical History
Past Medical History: None (Hypertension. Hyperlipidemia. Previous stroke. Dementia. Anxiety. Depression. Hysterectomy. Cholecystectomy.)
Social History
Tobacco: Non-smoker
Alcohol: None
Drug: None
Personal:
Living: With Family
Occupational Exposures: No known asbestos exposure
Environmental Exposures: No known tuberculosis exposure
Family History
Family History: Reviewed & Not Pertinent
Allergies / Home Medications
Allergies
Allergy/AdvReac Type Severity Reaction Status Date / Time
aspirin Allergy internal Verified 12/08/23 18:11
bleeding,avoids
due to GI
bleed
codeine Allergy Rash 'very Verified 12/08/23 18:11
sick'
Iodinated Contrast Media Allergy LIVER Verified 01/15/22 11:38
[Iodinated Contrast Media - FAILURE;
IV Dye] lip
swelling
Penicillins Allergy Rash Verified 12/08/23 15:13
Home Medications
�Medication �Instructions �Recorded �Confirmed �Last Taken �Type
atorvastatin 40 mg tablet 40 mg PO QPM #30 tabs 07/10/23 12/08/23 Unknown Rx
nifedipine 30 mg tablet,extended 30 mg PO DAILY #30 tabs 07/10/23 12/08/23 Unknown Rx
release 24 hr (Procardia XL)
cholecalciferol (vitamin D3) 1,250 1,250 mcg PO QWEEK Supplement 12/08/23 12/08/23 Unknown History
mcg (50,000 unit) tablet
latanoprost 0.005 % eye drops 1 drp BOTH EYES HS Eye Condition 12/08/23 12/08/23 Unknown History
lisinopril 40 mg tablet 40 mg PO DAILY blood pressure 12/08/23 12/08/23 Unknown History
mirtazapine 7.5 mg tablet 7.5 mg PO HS depression/sleep 12/08/23 12/08/23 Unknown History
Review of Systems
-
Unable to Obtain full review of systems at this time due to: Other (Per HPI)
Vitals / Labs / Diagnostic Testing
Vital Signs
Temp Pulse Resp BP Pulse Ox
97.7 F 78 13 126/56 92
12/13/23 07:59 12/13/23 07:15 12/13/23 07:15 12/13/23 07:00 12/13/23 07:57
Lab Data
12/13/23 06:00
12/13/23 23:52
Laboratory Results
12/12/23 12/13/23
23:51 00:20
PT 18.1 H
INR 1.52
APTT 39.8 H
pH 7.44
pCO2 37 H
pO2 62 L
HCO3 25.1
O2 Delivery Level Nrb 15 l
Microbiology
12/08/23 11:45 Urine Urine Culture - Final
Citrobacter farmeri
Diagnostic Testing:
Physical Exam
-
Exam:
Well-nourished and well-developed in no apparent distress
HEENT-atraumatic, normocephalic
Neck-supple, no JVD, no bruit
Heart-regular rate and rhythm-no murmurs, rubs or gallops
Chest with crackles at the bases, mild kyphoscoliosis, no wheezing
No back tenderness
Abdomen-soft, nontender, nondistended, no hepatosplenomegaly
Extremities-no cyanosis, clubbing, edema and good peripheral pulses
Integument-intact, no rashes, lesions or ecchymosis
Neurologically alert, moving all extremities grossly nonfocal
Assessment
-
83-year-old female patient with a history of hypertension, hyperlipidemia, stroke and dementia who presented with mental status changes, urinary tract infection and required increased FiO2 requirements transferred to ICU and content specialist consulted
for critical care management 12/13/2023.
Toxic metabolic encephalopathy
UTI
Leukocytosis
Anemia-hemoglobin 10.7-normocytic
Hypoxemia
IYN
Lower GI bleed
Hypertension with urgency
Pulmonary nodule-new 8 mm right upper lobe
Hyperglycemia
Elevated troponin
Conditions present prior to admission:
Hypertension.
Hyperlipidemia.
Previous stroke.
Dementia.
Anxiety.
Depression.
Hysterectomy. Cholecystectomy.
Plan
Admit patient to medical intensive care unit for hypoxemia potentially requiring noninvasive ventilation
Supplement oxygen as needed
High flow oxygen if needed
BiPAP if necessary
Patient not to be intubated-Limited DNR
Aspiration precautions
Nebulizers if needed
Obtain cultures
Urine cultures with Citrobacter
Antibiotics continue
Monitor leukocytosis
Monitor mental status-acute metabolic encephalopathy on top of underlying dementia
CT head negative
Considering MRI
EEG negative
Replace electrolytes
Acute kidney injury improving
Follow renal function
Monitor hemoglobin
Suspected lower GI bleed
Transfuse as needed
DVT prophylaxis
Early nutrition if possible
Early mobilization/bedside range of motion
Patient has multiple groundglass opacifications and nodules-depending on level of patient/family desires in regards to workup and management patient could follow-up in the pulmonary office-PFTs, possible PET scan, follow-up CT chest
If patient able to have FiO2 requirements decreased, not requiring noninvasive ventilation or pressors then could be transferred out of ICU-pulmonary will follow briefly
Critical care statement: A total of 55 minutes of critical care time was provided for this patient today. This includes management of unstable vital signs, evaluation of the patient at bedside, reviewing the patient's pertinent medical records
including radiographs, management of respiratory failure microbiology, laboratory evaluations, and discussion with primary team, consultants, pharmacy, nutrition, physical therapy, case management, charge nurse, critical care nursing, and
respiratory therapy.
Diagnostic data:
Chest x-ray 07/10/2023-NAD
Chest x-ray 12/12/2023-small vague ill-defined opacification right apex cannot differentiate inflammatory versus infectious versus malignant
CT abdomen and pelvis 12/08/2023-scattered groundglass opacifications bilateral lower lobe and lingula measuring up to 2.1 cm, extensive colonic diverticulosis
CT head 12/08/2023-no acute intracranial abnormalities
CT chest 12/08/2023-new 8 mm right upper lobe pulmonary nodule as well as scattered met patchy areas of groundglass opacifications more likely inflammatory than malignant, PET scan recommended
Data Reviewed
-
EKG: Report reviewed by me
Radiology: Image personally visualized and interpreted and Report reviewed by me
CT Scan: Image personally visualized and interpreted and Report reviewed by me
Medical Tests (Nuc Med, Echo etc): Report reviewed by me
Old Records: Reviewed
Critical Care Time (in minutes): 55
--- NOTE | 2023-12-13 08:31 | W.PN.HOSP.TC ---
Addendum entered and electronically signed by Colt Wiggins DO 12/13/23 16:52:
Documentation complete.
Original Note:
Today's Communication/Plan
-
Wean down oxygen
PT/OT
Assessment / Plan
Assessment / Plan
Gen-awake, alert, NAD
HEENT-NC, AT, anicteric, clear oral mm
Neck-supple
CV-reg, no M, +S1/S2
Lungs-clear B/L
Abd-soft, NT, ND
Ext-no edema
Musculoskeletal-no cyanosis, clubbing, left hand contracture
Skin-warm and dry
Acute hypoxic respiratory failure -transferred to ICU last night for high flow oxygen. Oxygenation improved this morning, currently on mid flow. Wean down as able. Etiology of respiratory failure unclear but does have underlying COPD. At risk
for aspiration pneumonitis due to dysphagia. No obvious pneumonia noted on chest x-ray, I do not see an infiltrate in the apex that was mentioned on the report..
Acute metabolic encephalopathy - from multi-drug resistant Citrobacter UTI. Encephalopathy resolved.
History of underlying dementia, unknown subtype with disturbing behaviors
- CT head negative. Defer MRI given improvement (less lethargic, back to baseline dementia)
- EEG negative
- metabolic workup otherwise negative
Right upper extremity stiffness -possible dystonic reaction due to Haldol administration. Haldol discontinued. Doubt stroke. Repeat CT head negative. Neurology consulted.
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 Does have stiffness to range of motion testing of her right wrist and elbow as well as limited range of motion of the right shoulder.
UTI - Urine culture: multi-drug resistant Citrobacter. Can change to Bactrim.
- switch to Rocephin, day 4 of Abx
- for behaviors, continue prn Haldol and 1:1 virtual sitter. QTc accept <470 on EKG
new 8 mm right upper lobe pulmonary nodule as well as multiple patchy areas of ground-glass airspace disease throughout both lungs
- inflammatory most likely, although cannot exclude malignancy. possible aspiration chronically (hx of dementia) can also show these change
- ST eval with VSE: on IDDSI 5 diet
- PET scan recommended outpatient; also OP Pulmonary evaluation if GOC are to pursue lung biopsy
YIN, likely pre-renal -improved.
- hold nephrotoxins
- FeNa 1.1
- continue bladder scans, 296cc this a.m.
Suspected Lower GI bleed -hemoglobin relatively stable.
- ddx: diverticular (CT with diverticulosis) vs hemorrhoidal
- Anusol available if needed
- no further evidence of GI bleed
- family opts against endoscopic procedures
Dilutional anemia, not acute blood loss anemia
- cap IVF, monitor Hb
Essential HTN with urgency
- continue Procardia, Lisinopril
- prn Hydralazine ordered
HLD
Hx of CVA with left hemiparesis
- hold statin
anxiety/depression
- continue Remeron
Hypokalemia -resolved.
DVT ppx: SC Heparin
Code: Full
Dispo -anticipate SNF on discharge. Updated family at bedside. Try to wean down oxygen prior to discharge.
Anticipated Discharge: Within 24 hours
Subjective/Interval History
-
Date of Service: December 13, 2023
Patient seen and examined. No complaints.
Objective Data
-
Labs:
Laboratory Results
12/12/23 12/13/23 12/13/23
23:51 00:20 00:23
WBC 13.1 H
Hgb 11.1 L
Hct 33.5 L
Plt Count 229
PT 18.1 H
INR 1.52
APTT 39.8 H
HCO3 25.1
Sodium
Potassium
Chloride
Carbon Dioxide
BUN
Creatinine
Glucose
Calcium
Total Bilirubin
AST
ALT
Alkaline Phosphatase
12/13/23 12/13/23
06:00 23:52
WBC Cancelled
Hgb Cancelled
Hct Cancelled
Plt Count Cancelled
PT
INR
APTT
HCO3
Sodium 137
Potassium 5.0
Chloride 102
Carbon Dioxide 24
BUN 46 H
Creatinine 1.2 H
Glucose 151 H
Calcium 9.4
Total Bilirubin 0.7
AST 29
ALT 17
Alkaline Phosphatase 70
Vital Signs:
Vital Signs
Temp Pulse Resp BP Pulse Ox
97.7 F 78 13 126/56 92
12/13/23 07:59 12/13/23 07:15 12/13/23 07:15 12/13/23 07:00 12/13/23 07:57
I&O
12/12/23 12/13/23 12/14/23
06:59 06:59 06:59
Intake Total 240 / 240 350 / 350
Output Total 400 / 400 610 / 610
Balance -160 / -160 -260 / -260
Review of Systems
-
History Source: Patient
All other systems: Reviewed and negative
--- NOTE | 2023-12-13 08:57 | CON.NEURO4 ---
Consultation - Neurology 4
-
CONSULTING PHYSICIAN: Santiago Glover MD
REFERRING PHYSICIAN: Hospitalist Santiago Glover MD
DICTATED BY:
DATE/TIME OF REQUEST: December 12, 2023
DATE/TIME OF CONSULTATION: December 12, 2023
Reason for Consultation: Right arm weakness
History of Present Illness:
This is a 83 year old right) handed female) who has presented to the hospital with (chief complaint) right arm weakness. 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
prior GI bleed with duodenal erosion vascular dementia who was brought into ER with change in mental status associated with vomiting lower abdominal pain and dark stool. Pt completed HCT with prior thalamic infarct and CT A/p with noted
diverticulosis, infrarenal AAA, distended bladder.
As per family pt had hallucinations and confusion few days ago. Family reviewed with PCP and pt slept well with improved mentation next day. . She was started on Mirtazapine. She then developed abdominal pain vomiting up some small amount of
blood but also note with dark stool and foul smelling stool with stool dark blood with normal brown regular stools. .
On December 09 evening into December 10 she was confused and hallucinating and she was given Haldol
She was also started on IV antibiotics for UTI with multidrug-resistant Citrobacter. She was also placed on Procardia and lisinopril for hypertensive urgency
This morning family noted that she was having in her right arm with odd movements
Past Medical History: As above
Surgical History: Cholecystectomy and KAITARA TARAKA procedures
Family History: Noncontributory
Social History: Lives at home with her family quit smoke or use alcohol
Allergies: Aspirin codeine iodine
Home Medications: See addendum
Review of Symptoms:
Patient denies any fever, headache, chest pain, shortness of breath, GI or symptoms.
�Per the HPI.�All systems are reviewed negative except above.
�-
Vital Signs:
The patient has a
Temp Pulse Resp BP Pulse Ox
98.8 F 90 16 130/89 95
Physical Exam:
The patient is afebrile, heart sounds S1 and S2 are regular , and chest is clear to auscultation bilaterally.
- If not clear, describe.
Neurologic Examination:
The patient is awake, alert and oriented x person place. She) is able to follow commands and answer questions appropriately. There is no aphasia or dysarthria. On cranial nerve assessment, pupils are 3 mm bilateral, round and reactive to light and
accommodation. Visual theodore are full. Extraocular movements are intact. Facial sensations are intact and bilaterally symmetrical, there is no facial asymmetry. Hearing is intact bilaterally to normal conversation volume. Tongue palate and uvula
are midline. Sternocleidomastoid strengths are full bilaterally.
Motor strengths are 4/5 right upper and lower extremities. Left upper and lower extremity strength is 3 out of 5 . There is LEFT drift- chronic. There is increased tone on the right . Deep tendon reflexes are asymmetrical 2+ bilateral upper and
lower extremities and left Babinski.
Sensations of pain, touch, temperature and vibration are intact with increased pain in the right biceps.. Coordination is dysmetric by finger to nose bilaterally.
Lab Results: See addendum
Neuro Imaging: CT head reveals extensive small vessel disease bilaterally right greater than left. Medium sized chronic right thalamic lacunar encephalomalacia
Impression:
Ms.LEONORA Mehul BROWNLEE is a 83 year old F who has presented to the hospital with (symptoms/chief complaint).
Differentials for the patient's presentation include:
1. Cervical radiculopathy
2. CVA
3. 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
Recommendations:
1. Continue IV antibiotics
2. Avoid Haldol and other typical/atypical antipsychotics
3. Physical therapy
4. Restart aspirin when medically stable
5. B12 level
Discussed patient care with: Hospitalist
Allergies
-
Allergies
Allergy/AdvReac Type Severity Reaction Status Date / Time
aspirin Allergy internal Verified 12/08/23 18:11
bleeding,avoids
due to GI
bleed
codeine Allergy Rash 'very Verified 12/08/23 18:11
sick'
Iodinated Contrast Media Allergy LIVER Verified 01/15/22 11:38
[Iodinated Contrast Media - FAILURE;
IV Dye] lip
swelling
Penicillins Allergy Rash Verified 12/08/23 15:13
Vital Signs and Labs
-
Vital Signs and Labs:
Vital Signs
Temp Pulse Resp BP Pulse Ox
36.5 C 95 20 138/59 96
12/13/23 07:59 12/13/23 08:45 12/13/23 08:45 12/13/23 08:30 12/13/23 08:45
Lab Results
12/13/23 06:00
12/13/23 23:52
PT 18.1 Sec (11.4-14.6) H 12/13/23 00:20
INR 1.52 12/13/23 00:20
APTT 39.8 Sec (23.4-35.0) H 12/13/23 00:20
Sodium 137 mmol/L (135-145) 12/13/23 23:52
Potassium 5.0 mmol/L (3.5-5.1) 12/13/23 23:52
BUN 46 mg/dl (7-17) H 12/13/23 23:52
Glucose 151 mg/dl (70-99) H 12/13/23 23:52
Calcium 9.4 mg/dl (8.4-10.2) 12/13/23 23:52
Phosphorus 3.3 mg/dl (2.5-4.5) 12/13/23 23:52
Vitamin B12 336 pg/ml (239-931) 12/09/23 05:18
Medications
-
Active Medications
Generic Name Dose Route Start Last Admin
Trade Name Freq PRN Reason Stop Dose Admin
Acetaminophen 650 mg 12/10/23 08:40 12/12/23 15:20
Acetaminophen 325 Mg Tablet PO 01/07/24 08:39 650 mg
Q6HPRN PRN Administration
mild pain/ fever>100.5F
Atorvastatin Calcium 10 mg 12/12/23 18:00 12/12/23 17:01
Atorvastatin (Lipitor) 10 Mg Tablet PO 01/09/24 17:59 10 mg
QPM TEODORO Administration
Bisacodyl 10 mg 12/08/23 17:55
Bisacodyl 10 Mg Rectal Suppository RECTAL 01/05/24 17:54
[id number] PRN
constipation
Ceftriaxone Sodium 1,000 mg 12/11/23 10:00 12/12/23 10:08
Ceftriaxone 1000 Mg / 10 Ml Vial IV 1,000 mg
Q24H TEODORO Administration
Heparin Sodium 5,000 units 12/10/23 12:15 12/12/23 21:14
Heparin 5,000 Units/Ml 1 Ml Vial SC 01/07/24 12:14 5,000 units
Q12 TEODORO Administration
Hydralazine HCl 5 mg 12/08/23 17:55 12/10/23 13:38
Hydralazine 20 Mg/Ml Vial IV 01/05/24 17:54 5 mg
Q6HPRN PRN Administration
SBP>160
Hydrocortisone Acetate 25 mg 12/08/23 22:00 12/12/23 21:15
Anusol Hc 25 Mg Rectal Suppository RECTAL 01/05/24 21:59 25 mg
HS TEODORO Administration
Latanoprost 0 drop 12/08/23 22:00 12/13/23 00:50
Latanoprost 0.005% (Ophthalmic Solution) 2.5 Ml Bottle BOTH EYES 01/05/24 21:59 Not Given
HS TEODORO
Lisinopril 40 mg 12/10/23 10:00 12/12/23 07:30
Lisinopril 20 Mg Tablet PO 01/07/24 09:59 40 mg
DAILY TEODORO Administration
Miconazole Nitrate 0 applic 12/10/23 13:00 12/12/23 22:13
Miconazole Powder Bottle TOPICAL 01/07/24 12:59 1 applic
BID TEODORO Administration
Mirtazapine 7.5 mg 12/10/23 22:00 12/12/23 21:15
Mirtazapine 7.5 Mg Regular Release Tablet PO 01/07/24 21:59 7.5 mg
HS TEODORO Administration
Nifedipine 30 mg 12/10/23 08:40 12/12/23 07:29
Nifedipine 30 Mg Extended Release Tablet PO 01/07/24 08:39 30 mg
DAILY TEODORO Administration
Ondansetron HCl 4 mg 12/08/23 17:55 12/10/23 13:38
Ondansetron 4 Mg/2 Ml Vial IV 01/05/24 17:54 4 mg
Q6HPRN PRN Administration
nausea and vomiting
Polyethylene Glycol 17 grams 12/08/23 17:55
Polyethylene Glycol Powder 17 Grams Packet PO 01/05/24 17:54
DAILYPRN PRN
constipation
Prednisone 30 mg 12/12/23 15:00 12/12/23 15:21
Prednisone 10 Mg Tablet PO 01/09/24 14:59 30 mg
DAILY TEODORO Administration
Senna/Docusate Sodium 1 tablet 12/08/23 17:55
Docusate W/Senna (Zenobia-Colace) Tablet PO 01/05/24 17:54
BIDPRN PRN
constipation
Sodium Chloride 0 flush 12/08/23 18:00 12/10/23 00:53
Sodium Chloride 0.9% (Flush) Syringe IV 01/05/24 17:59 1 flush
PER PROTOCOL TEODORO Administration
Sterile Water 10 ml 12/11/23 10:00 12/12/23 10:08
Sterile Water For Injection 10 Ml Vial IV 01/08/24 09:59 10 ml
Q24H TEODORO Administration
Home Medications
�Medication �Instructions �Recorded
atorvastatin 40 mg tablet 40 mg PO QPM #30 tabs 07/10/23
nifedipine 30 mg tablet,extended 30 mg PO DAILY #30 tabs 07/10/23
release 24 hr (Procardia XL)
cholecalciferol (vitamin D3) 1,250 1,250 mcg PO QWEEK Supplement 12/08/23
mcg (50,000 unit) tablet
latanoprost 0.005 % eye drops 1 drp BOTH EYES HS Eye Condition 12/08/23
lisinopril 40 mg tablet 40 mg PO DAILY blood pressure 12/08/23
mirtazapine 7.5 mg tablet 7.5 mg PO HS depression/sleep 12/08/23
[2023-12-13] MEDS: ROCEPHIN 1000 MG IV (09:04)
[2023-12-13] MEDS: STERILE WATER FOR INJECTION 10 ML IV (09:04)
[2023-12-13] MEDS: HEPARIN 5000 UNITS SC ×2 (09:05→20:00)
[2023-12-13] MEDS: DELTASONE 30 MG PO (09:05)
[2023-12-13] MEDS: ZESTRIL 40 MG PO (09:06)
[2023-12-13] MEDS: DESENEX/MITRAZOL/ZEASORB 1 APPLIC TOPICAL ×2 (09:06→19:59)
[2023-12-13] MEDS: PROCARDIA XL (EXTENDED RELEASE) 30 MG PO (09:06)
[2023-12-13 09:10] LABS: Creatine Phosphokinase 156 U/L (30-135)
--- NOTE | 2023-12-13 10:45 | PTCARENOTE ---
Assumed care of patient at 0645. Assessment completed and documented in shift assessment on worklist.
Patient is pleasantly confused, oriented to name and occasionally place. However, has poor recall and short term memory loss, frequently tearful and calling out for help. Currently on 12L Mid-Flow, SpO2 94-95%. Lungs diminished with crackles.
Attempted to assist patient in eating breakfast, however stopped once patient showed signs of aspiration and SpO2 dropped to mid 80's briefly. Notified Speech Therapist, awaiting re-evaluation.
For downgrade to IMU.
[2023-12-13 11:45] LABS: Troponin I 0.112 ng/ml
[2023-12-13] MEDS: 0.45%NACL 1000 IV (14:24)
--- NOTE | 2023-12-13 15:07 | PTOTSP ---
ST Follow-Up
Pt continues to present with clinical signs of mild to moderate oropharyngeal dysphagia characterized by prolonged mastication and bolus formation as well as reduced airway protection with advanced solids and occasionally with thin liquids.
Recommendations:
- Reinitiate PO diet of minced and moist solids, thin liquids (one sip at a time), and meds whole in puree.
- Aspiration precautions: Fully awake, alert, and upright for all PO intake; small bites; small sips; alternate bites and sips. D/c PO intake if pt is in respiratory distress.
- SOLAR ENERGY ENGINEER to f/u re: diet tolerance and to determine whether pt is in need of a repeat instrumental swallow study.
--- NOTE | 2023-12-13 15:15 | PTCARENOTE ---
Patient still with decreased urine output. Patient has made 125 mL in eight hours, have kept patient NPO awaiting re-eval by FLAME DEGREASER. Notified Dr. Wiggins.
To start 0.45% 60mL/hour.
--- NOTE | 2023-12-13 15:48 | CM ---
CM following re: discharge planning.
Reviewed pt's chart, met with pt. Per Rounds meeting, patient is pleasantly confused, oriented to name and occasionally place, has poor recall and short term memory loss, frequently tearful and calling out for help. Currently on 12L Mid-Flow, SpO2
94-95%
Per CM note a plan is for pt to go to a SNF for a short term rehab. [facility] SN[facility], [facility] and [facility] expressed an interest to offer a bed and additional information regarding pt's behavior requested closer to discharge.
D/C plan: preferred SNF.
CM will follow with discharge plan updates as hospitalization progresses
--- NOTE | 2023-12-13 15:57 | PN.CDI ---
CDI
- -
CDI:
Physician Documentation Request
Admit Date: 12/08/23 15:13
Dear Doctor Feliciano,
Patient admitted for UTI.
12/12 Healthcare Advisory Services Manager PN: 'Toxic metabolic encephalopathy, UTI'
12/12 Hospitalist PN: 'Acute metabolic encephalopathy - from multi-drug resistant Citrobacter UTI. Encephalopathy resolved.'
Please specify the known or suspected type of the documented encephalopathy.
Toxic metabolic
Metabolic
Other
Use of terms such as suspected, likely, concern for, or probable (associated with a specific diagnosis that is being evaluated, monitored, or treated as if it exists) are acceptable and can be coded in the inpatient setting, when documented at the
time of discharge.
Thank you,
Christina Mao RN, BSN
CDI Specialist
Available via [place] text
Please use your independent medical judgment in providing your response.
[2023-12-13] MEDS: LIPITOR 10 MG PO (17:25)
[2023-12-13] MEDS: ANUSOL HC 25 MG RECTAL (20:00)
--- NOTE | 2023-12-13 20:00 | PTCARENOTE ---
Assumed care of pt at change of shift. Assessment completed and documented on worklist. VSS. Currently 97% on 6L midflow. Pt AAOx2, forgetful to time, occasionally calling out. Bed alarm on. Call henderson within reach.
[2023-12-13] MEDS: TYLENOL 650 MG PO (20:50)
[2023-12-13] MEDS: REMERON 7.5 MG PO (21:12)
[2023-12-13] MEDS: XALATAN OPHTHALMIC SOLUTION 1 DROP BOTH EYES (21:12)
--- NOTE | 2023-12-13 22:38 | PTCARENOTE ---
Addendum entered by Sharda Merino RN 12/14/23 04:31:
Pt trying multiple times to have BM unsuccessfully. PRN senokot given per pt request for something to help.
Original Note:
Pt being transferred to IMU. Report given by SHAYLA Bradshaw. Assumed care of Pt. Pt AAOx2. Pt educated on why she was transferred. Pt had no complaints at this time. Assessment care and vitals as charted. Call henderson within reach. bed alarm on.
[2023-12-13] MEDS: SENOKOT-S 1 TABLET PO (23:55)
[2023-12-14] VITALS (15 sets, daily range): BP systolic 109–158; BP diastolic 39–70; PULSE 90; O2SAT 96
--- NOTE | 2023-12-14 04:32 | DOWNTIME ---
There was a [place] Client Anesthesiology Crna Downtime on 12/14/2023 from 0100 to 12/14/2023 at 0355. Downtime documentation of patient's care, including medication administrations, has been reconciled in the electronic record per guidelines. Refer to the
patient's paper chart under the miscellaneous tab to see printed paper medication records and downtime forms.
--- NOTE | 2023-12-14 08:07 | W.PN.PUL3 ---
Today's Communication / Plan
-
Continue to wean down supplemental O2 keeping SpO2 at 90% or greater
Check ambulatory pulse oximetry prior to discharge
Outpatient follow-up for discussion of new right upper lobe nodule seen on chest CT from 12/08/2023, and will repeat CT chest in 3 months
PT/OT - rec'd skilled rehab
Trend H/H
Patient is markedly improving and O2 requirements now down to 2 L/min. She has finished a course of antibiotics for UTI. She remains pleasantly confused and is hemodynamically stable. No additional pulmonary recommendations at this time.
Pulmonary service will now sign off. Please reconsult if there are any additional questions/concerns, or if patient's respiratory status deteriorates.
Assessment
-
83-year-old female patient with a history of hypertension, hyperlipidemia, stroke and dementia who presented with mental status changes, urinary tract infection and required increased FiO2 requirements transferred to ICU and operations intelligence consulted
for critical care management 12/13/2023. She is now being managed in the IMU with pulmonary service continuing to follow along.
Impression:
Septic encephalopathy due to UTI
UTI with urine culture (collected 12/08/2023) positive for Citrobacter farmeri
Leukocytosis
Anemia-hemoglobin 10.7-normocytic
Acute respiratory failure with hypoxia on supplemental oxygen likely due to sepsis with acute organ dysfunction
YIN (baseline Cr 0.9)
Lower GI bleed
Hypertension with urgency -blood pressure now improved
Pulmonary nodule-new 8 mm right upper lobe nodule with surrounding patchy groundglass opacities (as well as multiple bilateral patchy GGO)
Hyperglycemia
Elevated troponin � peaked at 0.139 on 12/13/2023
Conditions present prior to admission:
Hypertension.
Hyperlipidemia.
Previous stroke.
Dementia.
Anxiety.
Depression.
Hysterectomy. Cholecystectomy.
Plan
Patient was initially admitted to the ICU for noninvasive ventilation for acute hypoxemia --> now on supplemental O2 down to 2L/min and breathing comfortably
Continue supplemental O2 and wean down as tolerated to keep SpO2 >90-94%
Check ambulatory pulse oximetry prior to discharge
BiPAP if necessary
Patient not to be intubated-Limited DNR
Aspiration precautions
Nebulizers if needed
Follow up blood Cx (NGTD)
She is s/p course of Abx with cefepime (12/07 - 12/10) and rocephin (12/10 - 12/13/2023)
Urine cultures with Citrobacter farmeri resistant to Augmentin, ampicillin, and cefazolin and intermediate to Unasyn
Trend leukocytosis and monitor fever curve
Monitor mental status-acute metabolic encephalopathy on top of underlying dementia
CT head negative for acute intracranial normality
Considering MRI
EEG negative from 12/09/2023 showing no evidence of focal slowing or epileptiform activity
Replace electrolytes with K>4, Mg>2
Trend sCr
Monitor hemoglobin
Suspected lower GI bleed
Transfuse as needed to keep Hb>7g/dL
DVT prophylaxis: HSQ
PT/OT - rec'd skilled rehab
Patient has multiple groundglass opacifications and nodules-depending on level of patient/family desires in regards to workup and management patient could follow-up in the pulmonary office-PFTs, possible PET scan, follow-up CT chest in 3 months to
assess stability.
Patient is markedly improving and O2 requirements now down to 2 L/min. She has finished a course of antibiotics for UTI. She remains pleasantly confused and is hemodynamically stable. No additional pulmonary recommendations at this time.
Pulmonary service will now sign off. Thank you for allowing us to be involved in the care of this patient. Please reconsult if there are any additional questions/concerns, or if patient's respiratory status deteriorates.
Diagnostic data:
Chest x-ray 07/10/2023-NAD
Chest x-ray 12/12/2023-small vague ill-defined opacification right apex cannot differentiate inflammatory versus infectious versus malignant
CT abdomen and pelvis 12/08/2023-scattered groundglass opacifications bilateral lower lobe and lingula measuring up to 2.1 cm, extensive colonic diverticulosis
CT head 12/08/2023-no acute intracranial abnormalities
CT chest 12/08/2023-new 8 mm right upper lobe pulmonary nodule as well as scattered met patchy areas of groundglass opacifications more likely inflammatory than malignant, PET scan recommended
Total time spent today was 58 minutes for this encounter. Time includes reviewing laboratory test/imaging results, reviewing pertinent medical records, obtaining and reviewing medical history, performing an appropriate exam, ordering medications,
tests and procedures. Time also includes documentation of this encounter, coordinating patient care and communicating with other healthcare professionals. Total time does not include separately billed tests performed on this date of service.
Subjective Data
-
Date of Service:
Date of Service: December 14, 2023
Chief Complaint: Pulmonary Follow Up
Subjective:
Patient was seen and evaluated today at bedside. She was on 6 L/min nasal cannula this morning but is currently on 2 L/min saturating 97%. She denies shortness of breath or cough. Heart rate 105 and BP 03/26/1959. Patient is confused. She is in
no acute distress, denying chest pain, FOSS, abdominal pain, or chills.
Review of Systems
General: Other (Unable to obtain given patient's clinical status/confusion)
Objective Data
Data Reviewed
Vital Signs / I&O / Oxygen:
Vital Signs
Temp Pulse Resp BP Pulse Ox
98.1 F 67 12 118/54 100
12/14/23 03:15 12/14/23 04:00 12/14/23 04:00 12/14/23 04:00 12/14/23 04:00
Intake and Output
12/13/23 12/14/23 12/15/23
06:59 06:59 06:59
Intake Total 350 / 400 1050 / 1050
Output Total 610 / 610 520 / 520
Balance -260 / -210 530 / 530
SaO2 100
Nasal Cannula flow liters per 6
minute
Physical Exam
General: Respiratory Distress (negative), Comfortable, Chills (negative) and Sweats (negative)
HEENT: Normocephalic and Anicteric
Cardiovascular: S1-S2 and Murmur (KEVIN heard best at the RUSB)
Respiratory: Clear, Wheeze (negative), Crackles (negative), Rhonchi (negative) and Other (Diminished breath sounds bilaterally)
GI: Soft, Non Distended, Non Tender and Normal Bowel Sounds
Neurology: Awake, Alert and Tremors (negative)
Skin: Warm, Dry and Jaundice (negative)
Labs/Micro/Reports
Lab Data
12/13/23 06:00
12/13/23 23:52
Microbiology
12/12/23 18:50 Blood/Venous Blood Culture - Preliminary
No Growth in 24 hours- Final report to follow
12/12/23 16:37 Blood/Venous Blood Culture - Preliminary
No Growth in 24 hours- Final report to follow
12/08/23 11:45 Urine Urine Culture - Final
Citrobacter farmeri
--- NOTE | 2023-12-14 08:08 | W.PN.HOSP.TC ---
Addendum entered and electronically signed by Colt Wiggins DO 12/14/23 09:33:
Updated son Avila on the phone. All questions answered.
We discussed unfortunately that her dysphagia may progress over time and she is at risk for recurrent aspiration and recurrent hypoxic events. I also mentioned that he should consider hospice in the future if aspiration and ongoing hypoxia continue.
Anticipate discharge to SNF if oxygenation improved and we get her bowels moving.
Original Note:
Today's Communication/Plan
-
Aggressive bowel regimen
Wean oxygen as able
Voiding trial after bowel movement
Discontinue further antibiotics
Stop steroids
Continue PT/OT
Assessment / Plan
Assessment / Plan
Gen-awake, alert, NAD
HEENT-NC, AT, anicteric, clear oral mm
Neck-supple
CV-reg, no M, +S1/S2
Lungs-clear B/L
Abd-soft, NT, ND
Ext-no edema
Musculoskeletal-no cyanosis, clubbing, left hand contracture
Skin-warm and dry
Acute hypoxic respiratory failure -suspected to be due to aspiration pneumonitis in the setting of underlying COPD. Still on 6 L nasal cannula, wean down as able. Discussed with nursing.
Acute metabolic encephalopathy - from multi-drug resistant Citrobacter UTI. Encephalopathy resolved.
History of underlying dementia, unknown subtype with disturbing behaviors
Right upper extremity stiffness -possible dystonic reaction due to Haldol administration. Haldol discontinued. Improved range of motion of right arm with less stiffness today. Discontinue further steroids as I do not believe she has a crystal
arthropathy.
Citrobacter UTI -completed 5 days of antibiotics. Discontinue ceftriaxone.
new 8 mm right upper lobe pulmonary nodule as well as multiple patchy areas of ground-glass airspace disease throughout both lungs
- inflammatory most likely, although cannot exclude malignancy. possible aspiration chronically (hx of dementia) can also show these change
- ST eval with VSE: on IDDSI 5 diet
- PET scan recommended outpatient; also OP Pulmonary evaluation if GOC are to pursue lung biopsy
YIN, likely pre-renal -improved.
Dysphagia -likely chronic. Speech therapy following. Continue minced and moist diet. Aspiration precautions.
Acute urinary retention -possibly due to constipation. Jean catheter inserted 2 days ago, aggressive bowel regimen ordered. Voiding trial after bowel movement. Discussed with nursing.
Suspected Lower GI bleed -hemoglobin relatively stable.
- ddx: diverticular (CT with diverticulosis) vs hemorrhoidal
- Anusol available if needed
- no further evidence of GI bleed
- family opts against endoscopic procedures
Dilutional anemia, not acute blood loss anemia
- cap IVF, monitor Hb
Essential HTN with urgency -urgency resolved. Blood pressure somewhat low, lisinopril discontinued. Continue Procardia.
HLD -continue atorvastatin.
Hx of CVA with left hemiparesis
anxiety/depression
- continue Remeron
Hypokalemia -resolved.
DVT ppx: SC Heparin
Limited DNR
Dispo -anticipate SNF on discharge. Updated family at bedside. Try to wean down oxygen prior to discharge.
I left a voicemail for patient's son Avila to call me back.
Anticipated Discharge: Within 24 hours
Subjective/Interval History
-
Date of Service: December 14, 2023
Patient seen and examined. No complaints. Pleasantly confused.
Objective Data
-
Vital Signs:
Vital Signs
Temp Pulse Resp BP Pulse Ox
98.1 F 67 12 118/54 100
12/14/23 03:15 12/14/23 04:00 12/14/23 04:00 12/14/23 04:00 12/14/23 04:00
I&O
12/13/23 12/14/23 12/15/23
06:59 06:59 06:59
Intake Total 350 / 400 1050 / 1050
Output Total 610 / 610 520 / 520
Balance -260 / -210 530 / 530
Review of Systems
-
History Source: Patient
All other systems: Reviewed and negative
[2023-12-14] MEDS: HEPARIN 5000 UNITS SC ×2 (10:03→20:59)
[2023-12-14] MEDS: PROCARDIA XL (EXTENDED RELEASE) 30 MG PO (10:04)
[2023-12-14] MEDS: DULCOLAX 10 MG RECTAL (10:51)
[2023-12-14] MEDS: DESENEX/MITRAZOL/ZEASORB 1 APPLIC TOPICAL ×2 (10:51→21:01)
[2023-12-14] MEDS: DELTASONE PO (11:06)
[2023-12-14] MEDS: SENOKOT-S PO (11:07)
--- NOTE | 2023-12-14 14:58 | PTOTSP ---
SPEECH THERAPY SWALLOW THERAPY FOLLOW UP NOTE:
Patient continues to exhibit clinical signs of oropharyngeal dysphagia, likely chronic related to history of CVA, dementia, COPD. Patient previously transferred to ICU/IMU with concern for aspiration/hypoxia. Patient remains at risk for aspiration
and related complications given confusion, waxing and waning mentation, and tenuous pulmonary/respiratory status. Given current course of events including decline in respiratory status, with VSE results reviewed and assessed, recommend liquid
downgrade to Mildly-thick liquids, continue IDDSI Level 5 Minced and Moist diet. Continue medications whole or crushed in puree. Aspiration precautions includin:1 assist/100% supervision with meals; NO straws; Upright positioning; Chew
thoroughly; Small sips/bites; Slow rate of intake; Alternate textures; Ensure pt swallows prior to next bite; Only feed when awake/alert; Take breaks during meals; Do not eat when short of breath; Monitor for signs/symptoms of aspiration; D/c oral
diet if any decline in mental or respiratory status. ST to continue to follow, assess diet tolerance and modify as appropriate, determine indication for repeat instrumental assessment of swallowing if appropriate, and provide pt/family education
regarding recommendations. Discussed with pt, RN, Dr. Wiggins.
RECOMMEND:
1) IDDSI Level 5 Minced and Moist diet, MILDLY-THICK liquids
2) Medications crushed in puree
3) Aspiration precautions: 1:1 assist/100% supervision with meals; NO straws; Upright positioning; Chew thoroughly; Small sips/bites; Slow rate of intake; Alternate textures; Ensure pt swallows prior to next bite; Only feed when awake/alert; Take
breaks during meals; Do not eat when short of breath; Monitor for signs/symptoms of aspiration; D/c oral diet if any decline in mental or respiratory status
4) Consider downgrade to Mildly-thick liquids should patient exhibit any worsened respiratory status
5) Speech therapy to follow at the acute care level
[2023-12-14] MEDS: LIPITOR 10 MG PO (18:29)
--- NOTE | 2023-12-14 18:51 | PTCARENOTE ---
Patient o2 weaned down to 3L midflow. Spo2 95%-97%. Lungs diminished with some crackles at the bases. Patient is confused with poor short term memory. She has little understanding of why she is in the hospital. Patient is complete in care.
Wheelchair bound at baseline. Patient had two BM's today on bedpan. Jean catheter for retention to be d/c 10/17 in AM. Bed alarm on bed. Aspiration precautions, IDDSI-5 minced + moist. VS stable. SR on monitor.
[2023-12-14] MEDS: REMERON 7.5 MG PO (21:00)
[2023-12-14] MEDS: ANUSOL HC 25 MG RECTAL (21:01)
[2023-12-14] MEDS: SENOKOT-S 1 TABLET PO (21:01)
[2023-12-14] MEDS: XALATAN OPHTHALMIC SOLUTION 2 DROP BOTH EYES (21:38)
[2023-12-15] VITALS (8 sets, daily range): BP systolic 123–168; BP diastolic 52–76
--- NOTE | 2023-12-15 03:00 | PTCARENOTE ---
Pt received from previous RN. Pt Confused, alert to self, confused of place and time. forgetful and needs frequent reorienting. Pleasant. NSR on monitor. sat 98% on 3L. Q2t maintained. Sacral foam changed. Call light in reach.
[2023-12-15 04:44] LABS: % Basophils 0.3 % (0-2); % Immature Granulocytes 0.4 % (0-0.5); % Lymphocytes 31.5 % (20.5-51.1); % Monocytes 10.2 % (1.7-9.3); % Neutrophils 56.6 % (42.2-75.2); Absolute Eosinophils 0.1 10^3/uL (0-0.7); Absolute Lymphocytes 2.9 10^3/uL (1.2-3.4); Absolute Monocytes 0.9 10^3/uL (0.1-0.6); Absolute Neutrophils 5.2 10^3/uL (1.4-6.5); Hemoglobin 9.7 g/dL (12.0-16.0); Mean Corp Hgb Conc. 33.4 g/dL (33.0-37.0); Mean Corpuscular Hgb 29.2 pg (27.0-31.0); Mean Corpuscular Volume 87.3 fL (81.0-99.0); Nucleated Red Blood Cells % 0 %; Platelet Count 222 10^3/uL (130-400); Red Blood Cell Count 3.32 10^6/uL (4.20-5.40); Red Cell Dist. Width 14.3 % (11.5-14.5); White Blood Cell Count 9.2 10^3/uL (4.8-10.8)
[2023-12-15 05:04] LABS: Blood Urea Nitrogen 45 mg/dl (7-17); Carbon Dioxide 25 mmol/L (22-30); Chloride 107 mmol/L (98-107); Estimated Creatinine Clearance 27 ml/min; Glucose 87 mg/dl (70-99); Magnesium 1.9 mg/dl (1.6-2.3); Phosphorus 3.2 mg/dl (2.5-4.5); Potassium 4.6 mmol/L (3.5-5.1); Sodium 142 mmol/L (135-145); eGFR 49.55
--- NOTE | 2023-12-15 08:50 | W.PN.HOSP.TC ---
Today's Communication/Plan
-
Resume lisinopril
Discharge planning
Assessment / Plan
Assessment / Plan
Gen-awake, alert, NAD
HEENT-NC, AT, anicteric, clear oral mm
Neck-supple
CV-reg, no M, +S1/S2
Lungs-clear B/L
Abd-soft, NT, ND
Ext-no edema
Musculoskeletal-no cyanosis, clubbing, left hand contracture
Skin-warm and dry
Acute hypoxic respiratory failure -suspected to be due to aspiration pneumonitis in the setting of underlying COPD. Oxygenation improved, now on 3 L. Wean down as able.
Acute metabolic encephalopathy - from multi-drug resistant Citrobacter UTI. Encephalopathy resolved.
History of underlying dementia, unknown subtype with disturbing behaviors
Right upper extremity stiffness -possible dystonic reaction due to Haldol administration. Haldol discontinued. Improved range of motion of right arm with less stiffness today. Discontinue further steroids as I do not believe she has a crystal
arthropathy.
Citrobacter UTI -completed 5 days of antibiotics.
new 8 mm right upper lobe pulmonary nodule as well as multiple patchy areas of ground-glass airspace disease throughout both lungs
- inflammatory most likely, although cannot exclude malignancy. possible aspiration chronically (hx of dementia) can also show these change
- ST eval with VSE: on IDDSI 5 diet
- PET scan recommended outpatient; also OP Pulmonary evaluation if GOC are to pursue lung biopsy
YIN, likely pre-renal -improved.
Dysphagia -likely chronic. Speech therapy following. Continue minced and moist diet. Aspiration precautions.
Acute urinary retention -possibly due to constipation. Jean catheter inserted 2 days ago, aggressive bowel regimen ordered. Voiding trial after bowel movement. Discussed with nursing.
Suspected Lower GI bleed -hemoglobin relatively stable.
- ddx: diverticular (CT with diverticulosis) vs hemorrhoidal
- Anusol available if needed
- no further evidence of GI bleed
- family opts against endoscopic procedures
Dilutional anemia, not acute blood loss anemia
- cap IVF, monitor Hb
Essential HTN with urgency -urgency resolved. Blood pressure slightly high this morning, can resume lisinopril at lower dose.
HLD -continue atorvastatin.
Hx of CVA with left hemiparesis
anxiety/depression
- continue Remeron
Hypokalemia -resolved.
DVT ppx: SC Heparin
Limited DNR
Dispo -medically stable for discharge to SNF. Updated case management.
Updated sons at the bedside.
Anticipated Discharge: Today
Subjective/Interval History
-
Date of Service: December 15, 2023
Patient seen and examined. No complaints.
Objective Data
-
Labs:
Laboratory Results
12/15/23
04:27
WBC 9.2
Hgb 9.7 L
Hct 29.0 L
Plt Count 222
Sodium 142
Potassium 4.6
Chloride 107
Carbon Dioxide 25
BUN 45 H
Creatinine 1.1 H
Glucose 87
Calcium 9.0
Vital Signs:
Vital Signs
Temp Pulse Resp BP Pulse Ox
98.4 F 100 18 161/68 94
12/15/23 04:37 12/15/23 07:07 12/15/23 07:07 12/15/23 06:00 12/15/23 07:07
I&O
12/14/23 12/15/23 12/16/23
06:59 06:59 06:59
Intake Total 1050 / 1050 1050 / 1050
Output Total 520 / 520 985 / 985
Balance 530 / 530 65 / 65
Review of Systems
-
History Source: Patient
All other systems: Reviewed and negative
--- NOTE | 2023-12-15 09:58 | W.DS.TRANS ---
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
-
Discharge Instructions:
Discharge Diagnosis/Procedures Aspiration pneumonitis, acute metabolic
encephalopathy, UTI
Instructions:
Stand-Alone Forms:
Changes to Home Medications: Yes
Discharge Medications:
DC Medications w/original date entered in [employer]
atorvastatin 40 mg tablet 40 mg PO QPM #30 tabs 07/10/23
nifedipine 30 mg tablet,extended release 24 hr (Procardia XL) 30 mg PO DAILY #30 tabs 07/10/23
cholecalciferol (vitamin D3) 1,250 mcg (50,000 unit) tablet 1,250 mcg PO QWEEK Supplement 12/08/23
latanoprost 0.005 % eye drops 1 drp BOTH EYES HS Eye Condition 12/08/23
mirtazapine 7.5 mg tablet 7.5 mg PO HS depression/sleep 12/08/23
hydrocortisone acetate 25 mg rectal suppository 25 mg CA HS #0 ea 12/15/23
lisinopril 20 mg tablet 20 mg PO DAILY #0 tabs 12/15/23
polyethylene glycol 3350 17 gram oral powder packet (HealthyLax) 17 g PO DAILY #0 ea 12/15/23
Home Medication Changes
Lisinopril dose reduced to 20 mg daily.
Pending Results: No
[2023-12-15] MEDS: ZESTRIL 20 MG PO (11:09)
[2023-12-15] MEDS: PROCARDIA XL (EXTENDED RELEASE) 30 MG PO (11:09)
[2023-12-15] MEDS: HEPARIN 5000 UNITS SC (11:10)
[2023-12-15] MEDS: SENOKOT-S PO (11:10)
[2023-12-15] MEDS: DESENEX/MITRAZOL/ZEASORB 1 APPLIC TOPICAL (11:11)
[2023-12-15 12:03] LABS: Glycohemoglobin (HgbA1c) 5.6 % (4.0-5.6)
--- NOTE | 2023-12-15 12:44 | PTOTSP ---
ST Follow-Up
Pt continues to present with mild to moderate oropharyngeal dysphagia as described in VFSS results.
Recommendations:
- Continue with MINCED AND MOIST SOLIDS and would recommend THIN LIQUIDS at this time with NO STRAWS and SINGLE SIPS ONLY.
- Meds whole in puree (crush as needed).
- STRICT aspiration precautions: HOB fully upright for ALL PO intake, small bites, single sips only, alternate solids/liquids, feed slowly.
- DOME[employer]IC [employer] to f/u while admitted and upon d/c at SNF for dysphagia management.
--- NOTE | 2023-12-15 13:37 | PTCARENOTE ---
Patient lester catheter d/c this AM as per MD order. Patient was bladder scanned for 279 mls and patient voided 230 mls on bed aceves. Patient complete in care. INC of loose BM x3 today. Patient to be discharged to [facility] today.
--- NOTE | 2023-12-15 13:40 | CM ---
Addendum entered by Huma Guerrero RN 12/15/23 13:52:
Met with patient to let her know her son Avila will meet her over at [facility] today- patient too confused to comprehend- she responded talking about her parents who had passesd away.
Original Note:
Patient with Dx aspiration pneumonitis, JORDON, YIN, Right upper extremity stiffness -possible dystonic reaction due to Haldol. O2 3L. Seen by ST for dysphagia. PT/OT recommend skilled rehab.
Spoke with son Avila; he was made aware that [facility] cannot offer a bed. He is agreeable to [facility] for rehab today. IMM completed and copy sent to his email [email or web address].
Spoke with [facility]; they are able to accept the patient today. for report [phone], fax [phone].
Plan [facility] SN[facility] today by ambulance.
--- NOTE | 2023-12-15 15:45 | PTCARENOTE ---
Patient discharged to [facility]. Report called to RN. All belongings with the patient.
== END 2023-12-15 15:33 | DRG 177 ==
LOC: IMU 15:13
PROVIDERS: Nurse Practitioner Family; Nurse Practitioner Primary Care; Physician Assistant Medical; Registered Nurse; ADMITTING PHYSICIAN Internal Medicine; ATTENDING PHYSICIAN Hospitalist; CONSULT PHYSICIAN Internal Medicine Critical Care Medicine; CONSULT PHYSICIAN Internal Medicine Gastroenterology; CONSULT PHYSICIAN Psychiatry & Neurology Neurology; EMERGENCY PHYSICIAN Emergency Medicine
PROC: 5A0935A Assistance with Respiratory Ventilation, Less than 24 Consecutive Hours, High Flow/Velocity Cannula (ICD-10-PCS; 2023-12-13)
DX: J69.0 Pneumonitis due to inhalation of food and vomit (principal); G93.41 Metabolic encephalopathy; J96.01 Acute respiratory failure with hypoxia; I69.354 Hemiplegia and hemiparesis following cerebral infarction affecting left non-dominant side; F01.54 Vascular dementia, unspecified severity, with anxiety; F01.53 Vascular dementia, unspecified severity, with mood disturbance; N39.0 Urinary tract infection, site not specified; N17.9 Acute kidney failure, unspecified; Z16.24 Resistance to multiple antibiotics; R04.2 Hemoptysis; K92.2 Gastrointestinal hemorrhage, unspecified; Z66 Do not resuscitate; I16.0 Hypertensive urgency; I71.43 Infrarenal abdominal aortic aneurysm, without rupture; J44.9 Chronic obstructive pulmonary disease, unspecified; I10 Essential (primary) hypertension; F32.A Depression, unspecified; D64.9 Anemia, unspecified; E78.00 Pure hypercholesterolemia, unspecified; B96.89 Other specified bacterial agents as the cause of diseases classified elsewhere; N32.89 Other specified disorders of bladder; R13.10 Dysphagia, unspecified; R73.9 Hyperglycemia, unspecified; R74.8 Abnormal levels of other serum enzymes; R91.1 Solitary pulmonary nodule; Z79.899 Other long term (current) drug therapy; Z87.19 Personal history of other diseases of the digestive system; Z87.11 Personal history of peptic ulcer disease; Z87.891 Personal history of nicotine dependence; Z90.49 Acquired absence of other specified parts of digestive tract; Z90.710 Acquired absence of both cervix and uterus; Z88.0 Allergy status to penicillin; Z88.5 Allergy status to narcotic agent; Z88.6 Allergy status to analgesic agent; Z91.041 Radiographic dye allergy status
CPT/HCPCS: 36600; 70450; 71045; 71250; 74176; 74230; 80048; 80053; 81003; 81015; 82140; 82550; 82570; 82607; 82746; 82805; 82962; 83036; 83690; 83735; 84100; 84300; 84443; 84484; 85014; 85018; 85025; 85027; 85610; 85652; 85730; 86140; 86850; 86900; 86901; 87040; 87077; 87086; 87186; 92526; 92610; 92611; 93005; 94640; 95816; 96361; 96374; 96375; 97163; 97166; 97530; 97535; 99285

== ENCOUNTER 2023-12-16 18:09 | Inpatient (IN) | payer MEDICARE, SELFPAY ==
[2023-12-16] VITALS (19 sets, daily range): BP systolic 82–169; BP diastolic 45–70; BMI 22.5
[2023-12-16] MEDS: NSS 1000 IV ×2 (11:48→20:49)
[2023-12-16 12:16] LABS: % Basophils 0.3 % (0-2); % Eosinophils 1.4 % (0-6); % Immature Granulocytes 0.7 % (0-0.5); % Lymphocytes 21.7 % (20.5-51.1); % Monocytes 9.6 % (1.7-9.3); % Neutrophils 66.3 % (42.2-75.2); Absolute Eosinophils 0.1 10^3/uL (0-0.7); Absolute Immature Granulocytes 0.1 10^3/uL (0-0.05); Absolute Lymphocytes 2.1 10^3/uL (1.2-3.4); Absolute Monocytes 0.9 10^3/uL (0.1-0.6); Absolute Neutrophils 6.5 10^3/uL (1.4-6.5); Hemoglobin 10.6 g/dL (12.0-16.0); Mean Corp Hgb Conc. 32.1 g/dL (33.0-37.0); Mean Corpuscular Hgb 28.8 pg (27.0-31.0); Mean Corpuscular Volume 89.7 fL (81.0-99.0); Nucleated Red Blood Cells % 0 %; Platelet Count 295 10^3/uL (130-400); Red Blood Cell Count 3.68 10^6/uL (4.20-5.40); Red Cell Dist. Width 14.6 % (11.5-14.5); White Blood Cell Count 9.8 10^3/uL (4.8-10.8)
[2023-12-16 12:30] LABS: COVID-19 Antigen Negative (Negative)
[2023-12-16 12:31] LABS: ALT (SGPT) 26 U/L (0-35); AST (SGOT) 33 U/L (14-36); Albumin 3.2 g/dl (3.5-5.0); Alkaline Phosphatase 68 U/L (38-126); Blood Urea Nitrogen 31 mg/dl (7-17); Calcium 9.2 mg/dl (8.4-10.2); Carbon Dioxide 27 mmol/L (22-30); Chloride 105 mmol/L (98-107); Glucose 94 mg/dl (70-99); Potassium 4.5 mmol/L (3.5-5.1); Sodium 141 mmol/L (135-145); Total Bilirubin 0.6 mg/dl (0.2-1.3); eGFR 55.55
[2023-12-16 12:35] LABS: Urine Albumin Trace (Neg - Trace); Urine Bilirubin Negative (Negative); Urine Character Slightly Cloudy (Clear); Urine Color Yellow; Urine Glucose Negative (Negative); Urine Ketone Negative (Negative); Urine Leukocyte 1+ (Negative); Urine Nitrite Negative (Negative); Urine Occult Blood Negative (Negative); Urine Urobilinogen Negative (Neg - 1+)
[2023-12-16 12:43] LABS: Urine Squamous Cell 21-25 /LPF (Few)
[2023-12-16 12:44] LABS: Urine Mucus Few
[2023-12-16 12:45] LABS: Urine Amorphous Seen
[2023-12-16 12:46] LABS: Urine Hyaline Cast 0-2 /LPF (0-2)
[2023-12-16 12:47] LABS: Urine Red Blood Cell 0-2 /HPF (0-2)
[2023-12-16 12:50] LABS: Urine Yeast Many (Negative)
[2023-12-16 12:53] LABS: Urine Bacteria Few (Negative); Urine White Cell 40-50 /HPF (0-5)
[2023-12-16 13:13] LABS: NT-proBNP 6670 pg/ml
--- NOTE | 2023-12-16 15:49 | ED.GENMED ---
History of Present Illness
General
Chief Complaint: Fever
Source: patient, records, ambulance crew and [facility]
Exam Limitations: dementia
Time Seen by Provider: 12/16/23 12:37
Nursing documentation reviewed up to this point in time: agreed with
History of Present Illness
History of Present Illness:
83-year-old female with past medical history of dementia, stroke with left hemiparesis, hypertension, hyperlipidemia who presents to the emergency room for evaluation of change in mental status. Patient is a limited historian due to her dementia.
She was notably recently admitted to this hospital 12/08/2023 until 12/15/2023 (discharged yesterday evening). She was treated for acute metabolic encephalopathy secondary to Citrobacter UTI (multidrug-resistant); she also had hypoxic respiratory
failure thought to be related to aspiration pneumonitis in the setting of known COPD. She was treated with 5-day course of antibiotics in the hospital, was not discharged on antibiotics. I spoke with the [facility] staff at [facility] to
obtain collateral history: They report that this morning they found patient very drowsy and difficult to arouse. They found that she was hypoxic to 84% and was requiring 2 L nasal cannula to maintain appropriate saturation. They found that she was
febrile to 101 �F. Pulse rate was 100, blood pressure was soft�according to EMS blood pressure in the 80s. She was given Tylenol and referred to the emergency room for evaluation with concern for sepsis. When I asked the patient how she is
feeling she says 'very tired.' She does seem disoriented but apparently is oriented x 2 at baseline.
Past History
Past History
ED Past Medical History: CVA, HTN, Hypercholesterolemia, Psychiatric (anxiety/depression) and Other (GI bleed)
ED Past Surgical History: Cholecystectomy and Gynecological
Social History
Tobacco: Non-smoker
Alcohol: None
Drug: None
Personal: Other
Living: with family
Employment: Not employed
Family History
Family History: Unable to obtain
Review of Systems
Review of Systems
Unable to obtain full review of systems at this time due to: dementia
All Other Systems: Not applicable
Phy Exam
Physical Exam
Physical Exam:
General: Nontoxic
Head: Normocephalic, atraumatic
Eyes: Conjunctiva normal, sclera anicteric
Throat: Airway intact, handling secretions
Neck: Trachea midline, supple without meningismus
Lungs: Clear to auscultation bilaterally, no wheezing, rales, rhonchi; mild tachypnea, pulse ox 92% on room air
Heart: Regular rate and rhythm, no murmurs, gallops, or rubs
Abd: Soft, non distended, nontender
Neuro: Alert, oriented x 2, responds to questions and follows commands but poor recall
Skin: no rash
Extremities: Trace edema in the legs bilaterally, warm and well-perfused extremities
Scores
Heart Failure Risk
Heart Failure Risk Score: Not Applicable
Heart Score for Chest Pain Patients
STEMI patient?: Not applicable
Withdrawal Assessment of Alcohol
Withdrawal Assessment Completed?: Not applicable
Sepsis
Sepsis Screening
Sepsis Assessment: Sepsis
Sepsis Screen
Sepsis Screen: Sepsis
Date: 12/16/23
Time: 17:02
Course
Orders/Labs/Results
Orders:
Orders
12/16/23 11:48
Electrocardiogram (*1) Urgent
Reason for Study: Other
Other Reason for Exam: Possible Sepsis
Cardiac Monitoring- Treatment ONCE
EKG- Treatment ONCE
IV Insert/Care/Rem.- Treatment PRN
Straight cath- Treatment ONCE
CR Chest - 2 Views Urgent
Comment:
Reason For Exam: suspected infection
O2 Therapy [RESP] Urgent
Titrate/Wean O2 to maintain O2 sat greater than (%): 93
Special Instructions: TO MAINTAIN CONTINUOUS O2 SATS > OR = 93%
Pulse Ox/cont/shift [RESP] Urgent
Quantity: 1
Special Instructions: CONTINUOUS
12/16/23 11:54
Complete Blood Count/With Diff Urgent
Comprehensive Metabolic Panel Urgent
Lactic Acid Q4H
Comment: ON ICE, CANCEL 2ND ORDER IF FIRST LACTIC ACID LEVEL <2
Pro-BNP [NT-proBNP] Urgent
Urinalysis Reflex To Culture Urgent
Date Specimen was Collected: 12/16/23
Time Specimen was Collected: 11:48
Urine Microscopic Reflex Cult Urgent
Urine Culture Urgent
TATIANA Source: U
Specimen Description:
Date Specimen was Collected: 12/16/23
Time Specimen was Collected: 11:48
12/16/23 11:58
COVID-19 Antigen Urgent
Source: Nasal Swab
Influenza A+B Rapid Molecular Urgent
TATIANA Source: Nasal Swab
Specimen Description:
12/16/23 12:42
0.9% Sodium Chloride 500 ml [Nss] 500 ml IV BOLUS
12/16/23 13:25
0.9% Sodium Chloride 1000 ml [Nss] 1,000 ml IV BOLUS
12/16/23 13:59
CT Head W/o Iv Contrast Urgent
Comment:
Reason For Exam: change in mentation
12/16/23 16:35
CefTRIAXone [Rocephin] 1,000 mg IV NOW STA
12/16/23 16:38
Lactate Level [Lactic Acid] Urgent
Blood Culture Urgent
TATIANA Source: Blood/Venous
Specimen Description:
12/16/23 17:02
Azithromycin 500 mg IVPB NOW Azithromycin 500 mg/250 ml [Zithromax Infusion] 500 mg in 250 ml IV NOW
MetroNIDAZOLE IVPB 500 mg IVPB NOW MetroNIDAZOLE 500 MG/100 ML [Flagyl 500 mg] 100 ml IV NOW
12/16/23 17:08
Blood Culture Routine
TATIANA Source: Blood/Venous
Specimen Description:
Abnormal Lab Results
12/16/23
11:54
RBC 3.68 L 10^6/uL
(4.20-5.40)
Hgb 10.6 L g/dL
(12.0-16.0)
Hct 33.0 L %
(37.0-47.0)
MCHC 32.1 L g/dL
(33.0-37.0)
RDW 14.6 H %
(11.5-14.5)
MPV 11.0 H fL
(7.4-10.4)
Abs Immat Gran (auto) 0.1 H 10^3/uL
(0-0.05)
Absolute Monos (auto) 0.9 H 10^3/uL
(0.1-0.6)
Immature Gran % 0.7 H %
(0-0.5)
Monocytes % 9.6 H %
(1.7-9.3)
BUN 31 H mg/dl
(7-17)
Total Protein 6.0 L g/dl
(6.3-8.2)
Albumin 3.2 L g/dl
(3.5-5.0)
Leukocyte Esterase Rfl 1+ A
(Negative)
Urine WBC (Reflex) 40-50 A /HPF
(0-5)
Urine Bacteria (Reflex) Few A
(Negative)
Urine Yeast Many A
(Negative)
12/16/23 11:54
12/16/23 11:54
Vital Signs
Initial and Last Documented VS:
Initial Vital Signs
Temp Pulse Resp BP
37.2 C 95 25 82/49
12/16/23 11:41 12/16/23 11:41 12/16/23 11:41 12/16/23 11:41
Last Documented Vital Signs
Temp Pulse Resp BP Pulse Ox
37.8 C 81 22 135/48 97
12/16/23 11:58 12/16/23 15:30 12/16/23 15:30 12/16/23 15:30 12/16/23 14:45
MDM/Problems Addressed
Differential Diagnosis Includes:
UTI, pneumonia, viral syndrome
MDM/Problems Addressed:
83-year-old female who was just admitted for encephalopathy secondary to multidrug-resistant Citrobacter UTI, treated with 5 days of antibiotics returns to the emergency room 24 hours after discharge due to change in mental status once again, high
fever, hypotension and hypoxia. Blood pressure 82/49 on arrival, heart rate in 90s, respiratory rate in the 20s. Afebrile but received Tylenol prior to arrival. Pulse ox 94% she is on 2 L arrival. Physical exam as above. Will place an IV check
labs including CBC and a CMP, check urinalysis. Will check CT head. Check chest x-ray. Check COVID swab. Provide fluids. Monitor closely reassess after the above.
Labs reviewed: CBC shows stable anemia, no leukocytosis. CMP no clinically significant abnormalities. Urinalysis with persistent bacteria and pyuria. COVID swab negative. CT head no acute pathology. Chest x-ray no acute disease. We are able to
wean patient off of oxygen, she has a low normal pulse ox in the setting of apparent COPD history we will continue to monitor. At this point concern possibly for sepsis with multiple SIRS criteria, change in mental status and persistent bacteriuria
and pyuria concerning for possible UTI. Prior culture shows Citrobacter sensitive to Rocephin�will treat with IV Rocephin here. Patient was given IV fluids. Will admit to the hospital for continued management. Case discussed with hospitalist for
admission.
Discussed with hospitalist after initial admission�more concerned for possible occult aspiration pneumonia rather than UTI. Will broaden antibiotic coverage with azithromycin and Flagyl.
Chronic conditions affecting care:
Dementia
*Radiology
Radiology exam reviewed: preliminary read by ED provider and radiology read reviewed
*Pulse Oximetry
Patient hypoxic: yes
*EKG
Interpreted by ED Provider?: Yes
Heart Rate: 89
Rate: normal
Rhythm: sinus
[place]: left axis deviation
Interval: normal interval
QRS Pattern: left vent hypertrophy
Ischemia: no ischemia
*Critical Care Note
Total Time (30-74mins, 75-104mins- exclusive of procedures): Not Applicable
Data Reviewed
Review of Other/Old Records Reveals: Labs, Records and Discharge Summary
Source: patient, records, ambulance crew and [facility]
Patient Management
Discussion with other providers: Hospitalist (Discussed with hospitalist) and shelter staff (Discussed with [facility] staff)
Escalation/DeEscalation of care consider admission/obs:
Admission indicated
ED Attending Note
-
Portions of this chart may have been created with voice recognition software.� Occasional wrong word or��sound alike� substitutions may have occurred due to the inherent limitations of voice recognition software.
Discharge Plan
Departure
Patient Disposition: Admit
Date of Disposition: 12/16/23
Time of Disposition: 16:38
Admit to doctor: Naomi
Presentation/result/management discussed w/ accepting MD/DO: Hospitalist
Discharge Problem:
Acute UTI, Altered mental status, Sepsis
Prescriptions:
No Action
nifedipine [Procardia XL] 30 mg tablet extended release 24hr
30 mg PO DAILY Qty: 30 3RF
latanoprost 0.005 % Drops
1 drp BOTH EYES HS
mirtazapine 7.5 mg Tablet
7.5 mg PO HS
cholecalciferol (vitamin D3) 1,250 mcg (50,000 unit) Tablet
1,250 mcg PO MO
hydrocortisone acetate 25 mg Suppository
25 mg [place] HS Qty: 0 0RF
polyethylene glycol 3350 [HealthyLax] 17 gram Powder In Packet
17 g PO DAILY Qty: 0 0RF
lisinopril 20 mg Tablet
20 mg PO DAILY Qty: 0 0RF
acetaminophen [Tylenol] 325 mg Tablet
650 mg PO Q4HPRN PRN (Reason: mild pain/temp >100)
magnesium hydroxide [Milk of Magnesia] 400 mg/5 mL Suspension
30 ml PO [id number] PRN (Reason: no bm 3 days)
bisacodyl 10 mg Suppository
10 mg [place] DAILYPRN PRN (Reason: if mom ineffective aftr 24 hrs)
Fleet Enema 19-7 gram/118 mL Enema
118 ml [place] DAILYPRN PRN (Reason: dulcolax ineffective aftr 24 hrs)
atorvastatin 40 mg tablet
40 mg PO HS
Referrals:
Moody Watson I., DO [Family Provider] -
Interventions
Interventions:
*Risk Screen - Suicide Last Done: 12/16/23 11:47
*General Assessment Last Done: 12/16/23 11:47
*Neglect/Abuse Screening Last Done: 12/16/23 11:47
ED- Fall Risk Assessment Last Done: 12/16/23 12:03
*ED COVID-19 Vaccine History Last Done: 12/16/23 11:47
ED- Neurological Assessment Last Done: 12/16/23 11:56
ED-Skin Assessment Last Done: 12/16/23 11:57
Discharge Date and Time
Print Language: EQUATORIAL GUINEAN
--- NOTE | 2023-12-16 16:57 | HPS.HSE ---
Family Physician
-
Family Physician: Moody Watson
Chief Complaint
-
Altered mental status
History of Present Illness
83 y/o F with PMHx:
Discharged 12/15/23, admitted for acute hypoxic respiratory failure, acute metabolic encephalopathy, aspiration pneumonitis, UTI, dystonic reaction to Haldol, YIN, presumed lower gastrointestinal bleed
Chronic dysphagia
Alzheimer's dementia
Essential hypertension
Hyperlipidemia
h/o CVA with left hemiparesis
Anxiety
Depression
COPD
who p/w CC fever. Patient has underlying dementia and is unable to give a history. The history is obtained from discussion with the ER attending and the patient's son. Apparently this morning the patient was lethargic. The sons did have concerns
that the patient was being fed shortly after being awoken from sleep. They were concerned that this could have led to aspiration. As per the ER attending's discussion with the long-term the patient was found to be 'difficult to arouse' and
lethargic this morning. She was 84% on room air and was placed on 2L NC O2 to reach adequate pulse ox. She had a fever of 101 �F and was tachycardic. Systolic blood pressure was in the 80s.
When asked how the patient was feeling she stated she was not sure yet. The patient has dementia and cannot give an adequate history.
Medical History
Past Medical History
Past Medical History: Reports Other (Discharged 12/15/23, admitted for acute hypoxic respiratory failure, acute metabolic encephalopathy, aspiration pneumonitis, UTI, dystonic reaction to Haldol, YIN, presumed lower gastrointestinal bleed Chronic
dysphagia Dementia Essential hypertension Hyperlipidemia h/o CVA with left hemiparesis Anx)
Past Surgical History: Reports Other (N/A)
Social History
Tobacco: Non-smoker
Alcohol: None
Drug: None
Family History
Family History: Not pertinent
Allergies / Home Medications
Allergies reflects when Allergies were last updated in [facility].
Home Medications with original date entered in [facility]
Allergy/Medication List:
Allergies
Allergy/AdvReac Type Severity Reaction Status Date / Time
aspirin Allergy internal Verified 12/08/23 18:11
bleeding,avoids
due to GI
bleed
codeine Allergy Rash 'very Verified 12/08/23 18:11
sick'
Iodinated Contrast Media Allergy LIVER Verified 01/15/22 11:38
[Iodinated Contrast Media - FAILURE;
IV Dye] lip
swelling
Penicillins Allergy Rash Verified 12/08/23 15:13
Home Medications
nifedipine 30 mg tablet,extended release 24 hr (Procardia XL) 30 mg PO DAILY #30 tabs 07/10/23
cholecalciferol (vitamin D3) 1,250 mcg (50,000 unit) tablet 1,250 mcg PO MO Supplement 12/08/23
latanoprost 0.005 % eye drops 1 drp BOTH EYES HS Eye Condition 12/08/23
mirtazapine 7.5 mg tablet 7.5 mg PO HS depression/sleep 12/08/23
hydrocortisone acetate 25 mg rectal suppository 25 mg AR HS #0 ea 12/15/23
lisinopril 20 mg tablet 20 mg PO DAILY #0 tabs 12/15/23
polyethylene glycol 3350 17 gram oral powder packet (HealthyLax) 17 g PO DAILY #0 ea 12/15/23
acetaminophen 325 mg tablet (Tylenol) 650 mg PO Q4HPRN PRN mild pain/temp >100 12/16/23
atorvastatin 40 mg tablet 40 mg PO HS 12/16/23
bisacodyl 10 mg rectal suppository 10 mg AR DAILYPRN PRN if mom ineffective aftr 24 hrs 12/16/23
magnesium hydroxide 400 mg/5 mL oral suspension (Milk of Magnesia) 30 ml PO [id number] PRN no bm 3 days 12/16/23
sodium phosphates 19 gram-7 gram/118 mL enema (Fleet Enema) 118 ml AR DAILYPRN PRN dulcolax ineffective aftr 24 hrs 12/16/23
Review of Systems
-
Unable to obtain full review of systems at this time due to: Dementia
A 12 point ROS was completed and negative except as noted: No
Physical Exam
Vital Signs
Vital Signs
Temp Pulse Resp BP Pulse Ox
100.1 F 81 22 135/48 97
12/16/23 11:58 12/16/23 15:30 12/16/23 15:30 12/16/23 15:30 12/16/23 14:45
Physical Exam
General: Other (.)
Laboratory Results
-
12/16/23 11:54
12/16/23 11:54
Laboratory Results
PT Cancelled 12/16/23 11:54
INR Cancelled 12/16/23 11:54
Lactic Acid Cancelled 12/16/23 16:00
Total Bilirubin 0.6 mg/dl (0.2-1.3) 12/16/23 11:54
AST 33 U/L (14-36) 12/16/23 11:54
ALT 26 U/L (0-35) 12/16/23 11:54
Alkaline Phosphatase 68 U/L (38-126) 12/16/23 11:54
Impression/Plan
-
Gen: NAD, Awake and alert, appears chronically ill
Eyes: EOMI, PERRLA, no scleral icterus.
Neck: supple.
CV: RRR, +S1/S2, no m/r/g.
Resp: CTAB atneriorly, no rales, wheezes, or rhonchi.
Abd: +BS, soft, NT, ND
Skin: No rashes.
Neuro: CN 2-12 intact, patient unable to fully cooperate with complete neurological exam
Psych: Normal mood and affect.
CT brain:
1. No CT evidence for acute intracranial hemorrhage or transcortical infarct.
2. 1.0 cm chronic infarct in the right thalamus which adjacent mild encephalomalacia.
3. Moderate white matter leukoaraiosis in the frontal lobes.
4. Mild diffuse cerebral and cerebellar volume loss.
CXR:
1. No radiographic evidence for pneumonia.
2. Moderate elevation of the right hemidiaphragm.
3. Severe calcific atherosclerotic plaque in the thoracic aorta.
Acute metabolic encephalopathy:
-CT brain without acute findings, CXR without PNA
-pt was treated for UTI on prior admission, completed 5 days of abx on 12/13/23
-U/A noted but recurrent UTI would be very unlikely
-afebrile in ER but pt reportedly had a fever of 101 �F and was given Tylenol prior to arrival to the ER
-No leukocytosis
-No diagnosis of sepsis at this time
-most likely pt with aspiration pneumonitis
-cont NC O2 support
-speech eval, NPO for now.
-IVF support
-pt given Rocephin/Azithro/Flagyl in ER, no need to continue abx at this moment, will re-evaluate in 12 hours
Other problems:
Chronic dysphagia: speech eval as above
Alzheimer's dementia
Essential hypertension: hold Procardia XL and Lisinopril for now with hypotension earlier today
Hyperlipidemia: cont statin once able to take PO
h/o CVA with left hemiparesis
Anxiety: cont Remeron
Depression: cont Remeron
COPD, not in acute exac
Patient's family (two sons) updated over the phone. Pt is DNR. I specifically discussed CPR, defibrillation/synchronized cardioversion, vasoactive medications/pressors, mechanical ventilation. The patient's sons reported that they do not want any
of these measures done should the patient have a cardiopulmonary arrest. I recommended a palliative/comfort approach. The patient's sons reported that they will consider this.
[2023-12-16] MEDS: ROCEPHIN 1000 MG IV (17:33)
[2023-12-16] MEDS: ZITHROMAX INFUSION 250 IV (17:52)
[2023-12-16 18:16] LABS: Lactic Acid 0.7 mmol/L (0.7-2.0)
[2023-12-16] MEDS: FLAGYL 500 MG 100 IV (19:06)
--- NOTE | 2023-12-16 20:30 | PTCARENOTE ---
Pt arrived to unit from ED and was a pullover assist x3 from stretcher to bed. Pt is AAOx1 to self. VSS, 98% on 2L. Bed alarm in place and bed in lowest position.
[2023-12-16] MEDS: LOVENOX 40 MG SC (20:49)
[2023-12-16] MEDS: ANUSOL HC 25 MG RECTAL (22:38)
[2023-12-16] MEDS: XALATAN OPHTHALMIC SOLUTION 1 DROP BOTH EYES (22:38)
[2023-12-17] MEDS: NSS 1000 IV (05:49)
[2023-12-17 07:00] VITALS: BP 170/74
[2023-12-17 07:12] LABS: Hematocrit 26.7 % (37.0-47.0); Hemoglobin 8.6 g/dL (12.0-16.0); Mean Corp Hgb Conc. 32.2 g/dL (33.0-37.0); Mean Corpuscular Hgb 29.3 pg (27.0-31.0); Mean Corpuscular Volume 90.8 fL (81.0-99.0); Mean Platelet Volume 11.1 fL (7.4-10.4); Platelet Count 261 10^3/uL (130-400); Red Blood Cell Count 2.94 10^6/uL (4.20-5.40); Red Cell Dist. Width 14.6 % (11.5-14.5); White Blood Cell Count 10.2 10^3/uL (4.8-10.8)
[2023-12-17 07:37] LABS: Blood Urea Nitrogen 25 mg/dl (7-17); Calcium 8.5 mg/dl (8.4-10.2); Carbon Dioxide 21 mmol/L (22-30); Chloride 110 mmol/L (98-107); Estimated Creatinine Clearance 35 ml/min; Glucose 68 mg/dl (70-99); Potassium 4.6 mmol/L (3.5-5.1); Sodium 145 mmol/L (135-145); eGFR > 60.00
--- NOTE | 2023-12-17 09:05 | PTOTSP ---
Speech Therapy
Presentation: Patient appears to be 'soft spoken' evidenced by her low tone and volume, patient stated that is her baseline volume and tone. Patient was confused but easily followed commands, oriented to self, location, and year, and shared her
wants/ needs in short utterances.
Previous ST: 12/09/23 VSE: [employer] recommneded NDD level 2 (mechanical soft solids) and thin liquids (no straws). See note for details.
Presentation: Patient was positioned to an upright position in her bed. Patient was observed with several cup sips (small, single) of thin liquid which resulted in 1 instance of a reflexive cough. [employer] trialed additional thin liquid trials (tsp, cup)
in which patient appeared to tolerate as she did not exhibit any additional overt clinical s/sx of aspiration. [employer]IE[employer] presented patient with puree (tsp) and IDDSI 5 (minced/ moist) solids in which patient appeared to tolerate as she did not exhibit any
additional overt clinical s/sx of apsiration or difficulty with mastication/ manipulation. Of note, patient's dentures appeared to be ill-fitting and patient reported her dentures to feel 'uncomfortable'.
Given the above and recent CXR (no pna), recommend trial of thins via tsp and minced/ moist solids (IDDSI level 5) with FULL SUPERVISION AND ASSISTANCE, aspiration precautions, and medications in puree (crushed if possible).
Recommendations:
1) Trial of IDDSI level 5; minced and moist; solids with thin liquids (VIA TSP)
2) FULL assistance and supervision with PO
3) PO only when ALERT
4) Aspiration precautions
5) Medications in puree (crushed if applicable)
6) Consideration of repeat VSE if warranted
Plan: [employer] will continue to follow; pending hospitalization.
[2023-12-17] MEDS: D5/0.9% SODIUM CHLORIDE 1000 IV ×2 (09:23→23:00)
[2023-12-17] MEDS: PROCARDIA XL (EXTENDED RELEASE) 30 MG PO (11:41)
[2023-12-17] MEDS: ZESTRIL 20 MG PO (11:42)
--- NOTE | 2023-12-17 11:42 | W.PN.HOSP.TC ---
Today's Communication/Plan
-
-Hospice care was consulted
Assessment / Plan
Assessment / Plan
Impression:The patient is a 83 year-old female who presented to ER on 12/15 for evaluation of change in mental status and being found hypoxic to 84%. Additionally, they found that she was febrile to 101 �F and BP was in the 80 s at her caring
facility and sent to ER .Patient is limited historian due her basal cognitive function with underlying dementia and CVA. She has a PMH of CVA, HTN, Hypercholesterolemia, Psychiatric (anxiety/depression) and Other (GI bleed). She was recently
admitted to hospital and was treated for UTI and was discharged on 12/15/23. At admission she was obtained Head CT, UA, CXR, CBC, CMP, blood/urine culture and she was given prophylactic antibiotic treatment. Her imaging studies came back negative
for acute pathology. The patient was seen in her bed with her sons and her sons reported that she has her baseline cognitive level. the patient denied chest, abdominal pain, SOB. Palliative care was discussed with her sons. They are interested in.
#Acute metabolic encephalopathy
-CT brain: No CT evidence for acute intracranial hemorrhage or transcortical infarct. Chronic infarct in the right thalamus
-Pt was recently discharged from the hospital and was treated for UTI and completed 5 days of abx on 12/13/23
-U/A noted but recurrent UTI seems very unlikely UA:Seems contamination
-Had a fever spike of of 101 �F on 12/15
-No leukocytosis WBC:10.2 on 12.16
-Does not meet criteria for sepsis at this time. Currently no evidence of infection. Blood-urine culture: pending
-pt given Rocephin/Azithro/Flagyl in ER, no need for further antibiotics as there is no evidence of acute infection at this time.
-CXR :No radiographic evidence for pneumonia.
-Most likely pt with aspiration pneumonitis due developed hypoxia before admission
-Weaning of O2 can be considered
-ST saw the patient: IDDSI-5 diet
-IVF support
#Alzheimer's dementia
-Today at her baseline cognition level per her sons
#Chronic dysphagia: IDDSI-5 diet as per speech
#Essential hypertension:
-Procardia XL and Lisinopril restarted
#Hyperlipidemia:
-Statin
#Chronic anemia
-Hgb 8.6 (Was 10.6 on 12/15)
-Follow up CBC
#Left hemiparesis
-Hx of CVA
-Ambulatory dysfunction
#Anxiety
-Cont Remeron
#COPD
- Not in acute exac
#DVT
-Subc Hep
DNR, family interested in hospice
Anticipated Discharge: 24 - 48 hours
Subjective/Interval History
-
Date of Service: December 17, 2023
The patient was seen in her bed with her 2 sons at bedside. Her son reported that this ids her baseline cognition level. patient denied having pain on her chest, abdominal area. Reported some pain behind her head. Her sons reported that this is her
chronic pain.
Objective Data
-
Labs:
Laboratory Results
12/17/23
06:46
WBC 10.2
Hgb 8.6 L
Hct 26.7 L
Plt Count 261
Sodium 145
Potassium 4.6
Chloride 110 H
Carbon Dioxide 21 L
BUN 25 H
Creatinine 0.9
Glucose 68 L
Calcium 8.5
Vital Signs:
Vital Signs
Temp Pulse Resp BP Pulse Ox
98.7 F 94 18 170/74 98
12/17/23 07:00 12/17/23 07:00 12/17/23 07:00 12/17/23 07:00 12/17/23 07:00
I&O
12/16/23 12/17/23 12/18/23
06:59 06:59 06:59
Intake Total 0 / 0
Balance 0 / 0
Review of Systems
-
Unable to obtain full review of systems at this time due to: Dementia
History Source: Family and Records
EENT: Reports No Symptoms Reported
Respiratory: Reports No Symptoms
Cardiac: Reports No Symptoms
Abdomen/GI: Reports No Symptoms
Musculoskeletal: Reports Other (See HPI )
Neuro: Reports Other (See HPI )
Physical Exam
-
General: No Apparent Distress and Appears Chronically Ill
HEENT: Normocephalic and Atraumatic
Respiratory: Clear to Auscultation
Cardiac: Regular Rhythm and S1/S2
GI: Soft, Nontender and Nondistended
Musculoskeletal: No Clubbing, No Cyanosis, No Edema and Other (Left hemiparesis, Ambulatory dysfunction )
Skin: Warm
Neuro: Awake, Alert and Oriented (oriented to her name and her sons, not time no place // Left hemiparesis)
Psych: Calm
--- NOTE | 2023-12-17 11:54 | W.PN.UPDATE ---
Update Note
Progress Note Update
I saw and evaluated the patient. I reviewed the resident�s note and agree with findings and plan as documented in the resident�s note.
Gen: NAD, Awake and alert, appears chronically ill
Eyes: EOMI, PERRLA, no scleral icterus.
Neck: supple.
CV: remains RRR, +S1/S2, no m/r/g.
Resp: remains CTAB anteriorly, no rales, wheezes, or rhonchi.
Abd: remains +BS, soft, NT, ND
Skin: No rashes.
Neuro: CN 2-12 intact, patient unable to fully cooperate with complete neurological exam
Psych: Normal mood and affect.
CT brain:
1. No CT evidence for acute intracranial hemorrhage or transcortical infarct.
2. 1.0 cm chronic infarct in the right thalamus which adjacent mild encephalomalacia.
3. Moderate white matter leukoaraiosis in the frontal lobes.
4. Mild diffuse cerebral and cerebellar volume loss.
CXR:
1. No radiographic evidence for pneumonia.
2. Moderate elevation of the right hemidiaphragm.
3. Severe calcific atherosclerotic plaque in the thoracic aorta.
Acute metabolic encephalopathy:
-CT brain without acute findings, CXR without PNA
-pt was treated for UTI on prior admission, completed 5 days of abx on 12/13/23
-U/A noted but recurrent UTI would be very unlikely
-afebrile in ER but pt reportedly had a fever of 101 �F and was given Tylenol prior to arrival to the ER
-No leukocytosis
-No diagnosis of sepsis at this time. Currently no evidence of infection.
-most likely pt with aspiration pneumonitis
-cont NC O2 support
-speech eval done, currently on IDDSI-5 diet
-IVF support
-pt given Rocephin/Azithro/Flagyl in ER, no need for further antibiotics as there is no evidence of acute infection at this time.
Other problems:
Chronic dysphagia: IDDSI-5 diet as per speech
Alzheimer's dementia
Essential hypertension: restart Procardia XL and Lisinopril
Hyperlipidemia: restart statin
h/o CVA with left hemiparesis
Anxiety: cont Remeron
Depression: cont Remeron
COPD, not in acute exac
DNR, family interested in hospice
[2023-12-17 12:04] VITALS: BP 188/80; PULSE 93; O2SAT 98
[2023-12-17 12:07] VITALS: BP 188/80; PULSE 93; O2SAT 98
[2023-12-17 15:00] VITALS: BP 142/57
--- NOTE | 2023-12-17 16:21 | CM ---
Initial assessment completed with family via phone.
Pt is an 83yr old female admitted for Aspiration PNE.
Pt was recently admitted and dc'd to [facility] following a UTI.
Pt was returned after her O2 Sats were in the 80s and she had a temp.
Per family, they are interested in hospice.
SW explained that she would likely be most appropriate for out of hospital Hospice and explained the financial obligations.
Per son, Pt does not have the finances to pay for room and board at a facility, and does not qualify for MA because she owns a home that the family is living in.
SW asked if they could arrange for home hospice with the expectation that she will need caregivers.
Family is going to talk and work on arranging care at home.
Family asking about admission to facility on [facility] coverage, and SW said it can be explored, but if she can not tolerate the therapy, she would be private pay at that point as well.
Family will reach back out to when decisions are made.
PLAN; Continue to follow and support dc plans. [facility] coverage for SNF? Hospice? Facility vs Home?
[2023-12-17] MEDS: LOVENOX 40 MG SC (17:28)
[2023-12-17] MEDS: LIPITOR 40 MG PO (21:25)
[2023-12-17] MEDS: REMERON 7.5 MG PO (21:25)
[2023-12-17] MEDS: XALATAN OPHTHALMIC SOLUTION 1 DROP BOTH EYES (21:25)
[2023-12-17] MEDS: ANUSOL HC RECTAL (21:27)
[2023-12-17 23:02] VITALS: BP 150/59
[2023-12-18] MEDS: TYLENOL 650 MG PO (02:17)
[2023-12-18 07:00] VITALS: BP 145/57
[2023-12-18 07:08] LABS: % Basophils 0.4 % (0-2); % Eosinophils 1.8 % (0-6); % Immature Granulocytes 1.1 % (0-0.5); % Lymphocytes 12.6 % (20.5-51.1); % Monocytes 11.6 % (1.7-9.3); % Neutrophils 72.5 % (42.2-75.2); Absolute Eosinophils 0.2 10^3/uL (0-0.7); Absolute Immature Granulocytes 0.1 10^3/uL (0-0.05); Absolute Lymphocytes 1.4 10^3/uL (1.2-3.4); Absolute Monocytes 1.3 10^3/uL (0.1-0.6); Absolute Neutrophils 8.1 10^3/uL (1.4-6.5); Hematocrit 25.3 % (37.0-47.0); Hemoglobin 8.3 g/dL (12.0-16.0); Mean Corp Hgb Conc. 32.8 g/dL (33.0-37.0); Mean Corpuscular Hgb 30.5 pg (27.0-31.0); Mean Platelet Volume 10.8 fL (7.4-10.4); Nucleated Red Blood Cells % 0 %; Platelet Count 254 10^3/uL (130-400); Red Blood Cell Count 2.72 10^6/uL (4.20-5.40); Red Cell Dist. Width 14.5 % (11.5-14.5); White Blood Cell Count 11.2 10^3/uL (4.8-10.8)
[2023-12-18 07:30] LABS: ALT (SGPT) 22 U/L (0-35); AST (SGOT) 24 U/L (14-36); Albumin 2.5 g/dl (3.5-5.0); Alkaline Phosphatase 52 U/L (38-126); Blood Urea Nitrogen 17 mg/dl (7-17); Calcium 8.6 mg/dl (8.4-10.2); Carbon Dioxide 25 mmol/L (22-30); Chloride 111 mmol/L (98-107); Estimated Creatinine Clearance 40 ml/min; Glucose 120 mg/dl (70-99); Potassium 3.9 mmol/L (3.5-5.1); Sodium 142 mmol/L (135-145); Total Bilirubin 0.3 mg/dl (0.2-1.3); eGFR > 60.00
--- NOTE | 2023-12-18 07:55 | W.PN.HOSP.TC ---
Today's Communication/Plan
-
-Discharge
Assessment / Plan
Assessment / Plan
Impression:The patient is a 83 year-old female who presented to ER on 12/15 for evaluation of change in mental status and being found hypoxic to 84%. Additionally, they found that she was febrile to 101 �F and BP was in the 80 s at her caring
facility and sent to ER .Patient is limited historian due her basal cognitive function with underlying dementia and CVA. She has a PMH of CVA, HTN, Hypercholesterolemia, Psychiatric (anxiety/depression) and Other (GI bleed). She was recently
admitted to hospital and was treated for UTI and was discharged on 12/15/23. At admission she was obtained Head CT, UA, CXR, CBC, CMP, blood/urine culture and she was given prophylactic antibiotic treatment. Her imaging studies came back negative
for acute pathology. following days, the patient was seen in her bed with her sons and her sons reported that she has her baseline cognitive level. the patient denied chest, abdominal pain, SOB. Family is interested in hospice.
#Acute metabolic encephalopathy
-CT brain: No CT evidence for acute intracranial hemorrhage or transcortical infarct. Chronic infarct in the right thalamus
-Pt was recently discharged from the hospital and was treated for UTI and completed 5 days of abx on 12/13/23
-U/A noted but recurrent UTI seems very unlikely UA:Seems contamination
-Had a fever spike of of 101 �F on 12/16
-No leukocytosis WBC:10.2 on 12.16 and 11.2 on 12/17
-Does not meet criteria for sepsis at this time. Currently no evidence of infection. Blood culture: No Growth in 24 hours- Final report to follow
-pt given Rocephin/Azithro/Flagyl in ER, no need for further antibiotics as there is no evidence of acute infection at this time.
-CXR :No radiographic evidence for pneumonia.
-Most likely pt with aspiration pneumonitis due developed hypoxia before admission
-Weaning of O2 can be considered
-ST saw the patient: IDDSI-5 diet
-IVF support
#Alzheimer's dementia
-At her baseline cognition level per her sons since admission
#Chronic dysphagia: IDDSI-5 diet as per speech
#Essential hypertension:
-Procardia XL and Lisinopril restarted
#Hyperlipidemia:
-Statin
#Chronic anemia
-Hgb 8.6 (Was 10.6 on 12/15)
-Follow up CBC
#Left hemiparesis
-Hx of CVA
-Ambulatory dysfunction
#Anxiety
-Cont Remeron
#COPD
- Not in acute exac
#DVT
-Subc Hep
DNR, family interested in hospice
Anticipated Discharge: Today
Subjective/Interval History
-
Date of Service: December 18, 2023
The patient was seen in her bed oriented ti her name and her sons. She is likely at her baseline per her sons.
Objective Data
-
Labs:
Laboratory Results
12/18/23
06:47
WBC 11.2 H
Hgb 8.3 L
Hct 25.3 L
Plt Count 254
Sodium 142
Potassium 3.9
Chloride 111 H
Carbon Dioxide 25
BUN 17
Creatinine 0.8
Glucose 120 H
Calcium 8.6
Total Bilirubin 0.3
AST 24
ALT 22
Alkaline Phosphatase 52
Vital Signs:
Vital Signs
Temp Pulse Resp BP Pulse Ox
100.1 F 97 18 150/59 97
12/17/23 23:02 12/17/23 23:02 12/17/23 23:02 12/17/23 23:02 12/17/23 23:02
I&O
12/17/23 12/18/23 12/19/23
06:59 06:59 06:59
Intake Total 0 / 0 960 / 960
Balance 0 / 0 960 / 960
Review of Systems
-
Unable to obtain full review of systems at this time due to: Dementia
History Source: Family and Records
EENT: Reports No Symptoms Reported
Respiratory: Reports No Symptoms
Cardiac: Reports No Symptoms
Abdomen/GI: Reports No Symptoms
Genitourinary: Reports No Symptoms
Musculoskeletal: Reports Other (See HPI)
Skin: Reports No Symptoms
Neuro: Reports Other (See HPI)
Physical Exam
-
General: No Apparent Distress and Appears Chronically Ill
HEENT: Normocephalic and Atraumatic
Respiratory: Clear to Auscultation
Cardiac: Regular Rhythm and S1/S2
GI: Soft, Nontender and Nondistended
Musculoskeletal: No Clubbing, No Cyanosis, No Edema and Other (Left hemiparesis, Ambulatory dysfunction )
Skin: Warm
Neuro: Awake, Alert, Oriented (oriented to her name and her sons, not time no place) and Other ( Left hemiparesis)
[2023-12-18] MEDS: PROCARDIA XL (EXTENDED RELEASE) 30 MG PO (08:50)
[2023-12-18] MEDS: ZESTRIL 20 MG PO (08:51)
--- NOTE | 2023-12-18 08:58 | W.PN.HOSP.TC ---
Today's Communication/Plan
-
d/c
Assessment / Plan
Assessment / Plan
Gen: NAD, Awake and alert, appears chronically ill
Eyes: EOMI, PERRLA, no scleral icterus.
Neck: supple.
CV: continues to remain RRR, +S1/S2, no m/r/g.
Resp: continues to remain CTAB anteriorly, no rales, wheezes, or rhonchi.
Abd: continues to remain +BS, soft, NT, ND
Skin: No rashes.
Neuro: CN 2-12 intact
Psych: Normal mood and affect.
CT brain:
1. No CT evidence for acute intracranial hemorrhage or transcortical infarct.
2. 1.0 cm chronic infarct in the right thalamus which adjacent mild encephalomalacia.
3. Moderate white matter leukoaraiosis in the frontal lobes.
4. Mild diffuse cerebral and cerebellar volume loss.
CXR:
1. No radiographic evidence for pneumonia.
2. Moderate elevation of the right hemidiaphragm.
3. Severe calcific atherosclerotic plaque in the thoracic aorta.
Acute metabolic encephalopathy:
-CT brain without acute findings, CXR without PNA
-pt was treated for UTI on prior admission, completed 5 days of abx on 12/13/23
-U/A noted but recurrent UTI would be very unlikely
-afebrile in ER but pt reportedly had a fever of 101 �F and was given Tylenol prior to arrival to the ER
-No leukocytosis on admission, current leukocytosis is minimal at 11.2
-No diagnosis of sepsis at this time. Currently no evidence of infection.
-most likely pt with recurrent aspiration pneumonitis
-cont NC O2 support
-speech eval done, currently on IDDSI-5 diet
-received IVF support
-pt given Rocephin/Azithro/Flagyl in ER, no need for further antibiotics as there is no evidence of acute infection at this time.
Other problems:
Chronic dysphagia: IDDSI-5 diet as per speech
Alzheimer's dementia
Essential hypertension: cont Procardia XL and Lisinopril
Hyperlipidemia: cont statin
h/o CVA with left hemiparesis
Anxiety: cont Remeron
Depression: cont Remeron
COPD, not in acute exac
DNR, family interested in hospice, will pursue outpt
Total time spent on d/c = 31 min. This included today's physical exam, progress note, review of laboratory and diagnostic data, preparation of discharge documents and prescriptions, and discussions about the pt's hospital course and discharge plan
with the patient and other medical administrator involved in the patient's care.
Anticipated Discharge: Today
Subjective/Interval History
-
Date of Service: December 18, 2023
No new complaints.
Objective Data
-
Labs:
Laboratory Results
12/18/23
06:47
WBC 11.2 H
Hgb 8.3 L
Hct 25.3 L
Plt Count 254
Sodium 142
Potassium 3.9
Chloride 111 H
Carbon Dioxide 25
BUN 17
Creatinine 0.8
Glucose 120 H
Calcium 8.6
Total Bilirubin 0.3
AST 24
ALT 22
Alkaline Phosphatase 52
Vital Signs:
Vital Signs
Temp Pulse Resp BP Pulse Ox
98.6 F 85 16 145/57 94
12/18/23 07:00 12/18/23 07:00 12/18/23 07:00 12/18/23 08:51 12/18/23 07:00
I&O
12/17/23 12/18/23 12/19/23
06:59 06:59 06:59
Intake Total 0 / 0 960 / 960
Balance 0 / 0 960 / 960
--- NOTE | 2023-12-18 10:09 | CM ---
Addendum entered by Huma Guerrero RN 12/18/23 10:42:
Spoke with Thalia, [facility], [facility]; they are able to accept the patient today. The for report [phone], fax [phone]. Thalia asks for 2pm arrival if possible.
Spoke with patient's son Avila (home # [phone]) and son Rah (cell [phone]); they agree to d/c today to [facility] by ambulance. IMM completed and copy sent to Avila's email at [email or web address].
Plan [facility] today by ambulance.
Original Note:
Patient from [facility] SNF with Dx Acute metabolic encephalopathy. O2 3L. PT/OT recommend skilled rehab.
Spoke with patient's son Avila (home # [phone]) and son Rah (cell [phone]); extensive conversation with sons which confirmed that they do not want to consider hospice at this time. Sons concerned about SNF with hospice due to daily
bed cost. They also say that they cannot take the patient home due to inability to afford to hire a caregiver, and their own inability to do personal care for the patient. They had already had their father in hospice, and say they were threatened
to have house sized for payment of medical services. They would like short term SNF for rehab. Explained to sons that if patient doesn't improve with rehab that the same care decisions will need to be addressed in a few weeks. Sons would like
referrals to [facility] and [facility] in hopes patient will improve her functional status with rehab.
SNF referrals placed.
Spoke with [facility], [facility]; she will review the referral and let CM know if they can accept.
Plan follow up with [facility] for acceptance.
--- NOTE | 2023-12-18 10:49 | CM ---
Note requested by [facility] SN[facility] confirming that CM offered hospice and family declined, stating they wish patient to do rehab at this time.
--- NOTE | 2023-12-18 10:56 | W.DCSUMMARY ---
Addendum entered and electronically signed by Yayo Crowe MD 12/18/23 11:21:
Read, reviewed, and agree. See same day progress note for additional details.
Original Note:
Discharge Summary
Discharge Data
Date of Admission: 12/16/23
Date of Discharge: 12/18/23
-
Pending Results: No
Additional Pending Results:
Discharging Physician : Yayo Crowe MD
Disposition : SNF
Primary care physician : Moody Watson I., DO
Principal Discharge diagnosis :Recurrent aspiration pneumonitis, Dementia
Chronic Discharge diagnosis : Dementia,CVA ( with left hemiparesis), HTN, Hypercholesterolemia, Psychiatric (anxiety/depression) and Other (GI bleed)
Hospital Course : The patient is a 83 year-old female who presented to ER on 12/15 for evaluation of change in mental status and being found hypoxic to 84%. Additionally, they found that she was febrile to 101 �F and BP was in the 80 s at her
caring facility and sent to ER .Patient is limited historian due her basal cognitive function with underlying dementia and CVA. She has a PMH of CVA, HTN, Hypercholesterolemia, Psychiatric (anxiety/depression) and Other (GI bleed). She was recently
admitted to hospital and was treated for UTI and was discharged on 12/15/23. At admission she was obtained Head CT, UA, CXR, CBC, CMP, blood/urine culture and she was given prophylactic antibiotic treatment. Her Head CT came back negative for acute
pathology. Her U/A noted but recurrent UTI seemed very unlikely at this admission based on lab studies. ( WBC: Normal limits, No continues fever). She was started on prophylactic antibiotic treatment including Rocephin/Azithro/Flagyl in ER. But
antibiotic treatment was not continued as there was no evidence of acute infection at this admission. No growth was observed at blood culture in 24 h and final report is still pending. Final urine culture is still pending. The patient maintained
saturation ~94-98% with 2-3 L O2 flow. Her Chest X ray did not show any signs of PNA. Following the admission, the patient was seen in her bed with her sons and her sons reported that she has her baseline cognition level. The patient is planned
to be discharged today. Family is interested in hospice.
Important imaging findings :
Chest XR 12/16/23:
IMPRESSION:
1. No radiographic evidence for pneumonia.
2. Moderate elevation of the right hemidiaphragm.
3. Severe calcific atherosclerotic plaque in the thoracic aorta.
Haed CT 12/16/23
IMPRESSION:
1. No CT evidence for acute intracranial hemorrhage or transcortical infarct.
2. 1.0 cm chronic infarct in the right thalamus which adjacent mild encephalomalacia.
3. Moderate white matter leukoaraiosis in the frontal lobes.
4. Mild diffuse cerebral and cerebellar volume loss.
Discharge Plan
-
Patient Disposition: Fpc/SNF
Discharge Diagnosis/Procedures: recurrent aspiration pneumonitis, dementia
Condition: Fair
Diet: Other diet
Additional Diets: IDDSI-5 minced and moist, thin liquids
Activity: With assistance
Driving Restrictions: No driving
Blood Work: BMP and CBC in 1 week, script from PCP
Referrals:
Moody Watson I., DO [Family Provider] - in less than 1 week
Prescriptions:
Continued
nifedipine [Procardia XL] 30 mg tablet extended release 24hr
30 mg PO DAILY Qty: 30 3RF
latanoprost 0.005 % Drops
1 drp BOTH EYES HS
mirtazapine 7.5 mg Tablet
7.5 mg PO HS
cholecalciferol (vitamin D3) 1,250 mcg (50,000 unit) Tablet
1,250 mcg PO MO
hydrocortisone acetate 25 mg Suppository
25 mg ND HS Qty: 0 0RF
polyethylene glycol 3350 [HealthyLax] 17 gram Powder In Packet
17 g PO DAILY Qty: 0 0RF
lisinopril 20 mg Tablet
20 mg PO DAILY Qty: 0 0RF
acetaminophen [Tylenol] 325 mg Tablet
650 mg PO Q4HPRN PRN (Reason: mild pain/temp >100)
magnesium hydroxide [Milk of Magnesia] 400 mg/5 mL Suspension
30 ml PO [id number] PRN (Reason: no bm 3 days)
bisacodyl 10 mg Suppository
10 mg ND DAILYPRN PRN (Reason: if mom ineffective aftr 24 hrs)
Fleet Enema 19-7 gram/118 mL Enema
118 ml ND DAILYPRN PRN (Reason: dulcolax ineffective aftr 24 hrs)
atorvastatin 40 mg tablet
40 mg PO HS
Discharge Orders:
Discharge Patient (As Directed); Ordered 12/18/23
Ordered By: Yayo Crowe
Discharge Date and Time
Print Language: HAITIAN
[2023-12-18] MEDS: D5/0.9% SODIUM CHLORIDE IV (11:54)
--- NOTE | 2023-12-18 12:35 | PTCARENOTE ---
report given to nurse Granados at [facility]. patient preparing for d/c
== END 2023-12-18 14:13 | DRG 177 ==
LOC: 4 WEST ACU 18:09
PROVIDERS: Student in an Organized Health Care Education/Training Program; ADMITTING PHYSICIAN Internal Medicine; EMERGENCY PHYSICIAN Emergency Medicine; FAMILY PHYSICIAN Internal Medicine
DX: J69.0 Pneumonitis due to inhalation of food and vomit (principal); G93.41 Metabolic encephalopathy; F02.83 Dementia in other diseases classified elsewhere, unspecified severity, with mood disturbance; F02.84 Dementia in other diseases classified elsewhere, unspecified severity, with anxiety; I69.354 Hemiplegia and hemiparesis following cerebral infarction affecting left non-dominant side; K92.2 Gastrointestinal hemorrhage, unspecified; F32.A Depression, unspecified; G30.9 Alzheimer's disease, unspecified; Z66 Do not resuscitate; J44.9 Chronic obstructive pulmonary disease, unspecified; I10 Essential (primary) hypertension; E78.00 Pure hypercholesterolemia, unspecified; D53.9 Nutritional anemia, unspecified; Z51.5 Encounter for palliative care; Z11.52 Encounter for screening for COVID-19
CPT/HCPCS: 51701; 70450; 71046; 80048; 80053; 81003; 81015; 83605; 83880; 85025; 85027; 87040; 87070; 87086; 87502; 87811; 92610; 93005; 94760; 96361; 96365; 96367; 96375; 97163; 97167; 99285

== ENCOUNTER 2024-10-27 14:35 | Inpatient (IN) | payer MEDICARE, SELFPAY ==
[2024-10-27] VITALS (9 sets, daily range): BP systolic 141–188; BP diastolic 57–91; PULSE 2–82
--- NOTE | 2024-10-27 11:46 | ED.GENMED ---
History of Present Illness
General
Chief Complaint: Breathing Problem
Source: patient
Exam Limitations: none
Time Seen by Provider: 10/27/24 11:35
Nursing documentation reviewed up to this point in time: agreed with
History of Present Illness
History of Present Illness:
Patient presents to ED secondary to worsening shortness of breath with cough over the past 3 days. Per son, who lives with the patient, patient has had similar symptoms in the past, as she does have trouble swallowing. Patient has history of COPD.
Denies fever. Denies abdominal pain. Denies chest pain. Denies nausea, vomiting, or diarrhea. Denies recent travel. Denies recent illness. Patient does not ambulate, with residual deficit from previous CVA.
Past History
Past History
ED Past Medical History: CVA, HTN, Hypercholesterolemia, Psychiatric (anxiety/depression) and Other (GI bleed)
ED Past Surgical History: Cholecystectomy and Gynecological
Social History
Tobacco: Non-smoker
Alcohol: None
Drug: None
Personal: Other
Living: with family
Employment: Not employed
Family History
Family History: Unable to obtain
Review of Systems
Review of Systems
Allergies reviewed?: Yes
All Other Systems: ROS reviewed and negative except as documented in HPI and ROS
Constitutional: Reports no symptoms; Denies fever
Respiratory: Reports cough and trouble breathing
Cardiac: Reports no symptoms
ABD/GI: Reports no symptoms; Denies vomiting or diarrhea
Musculoskeletal: Reports no symptoms; Denies edema
Skin: Reports no symptoms
Neurological: Reports no symptoms
Phy Exam
Physical Exam
Physical Exam:
Physical Exam
General: mild respiratory distress, not acutely ill. afebrile
Head: nc/at. eomi
Neck: supple. no meningeal signs
Heart: s1/s2 regular rate and rhythm
Lungs: mild respiratory distress. rhonchi bilaterally
Abdomen: normal bowel sounds. not tender.
Neuro: alert and oriented x 2. no focal neurological deficits
Skin: no rash
Psychiatric: well kept. interactive and cooperative
Extremities: no edema. no calf tenderness.
Scores
Heart Failure Risk
Heart Failure Risk Score: Not Applicable
Sepsis
Sepsis Screening
Sepsis Assessment: Sepsis Ruled Out
Sepsis Screen
Sepsis Screen: Sepsis Ruled Out
Date: 10/27/24
Time: 17:03
Course
Orders/Labs/Results
Orders:
Orders
10/27/24 Lunch
IDDSI 6 - Soft & Bite Sized
At Your Request: Full Participation
Does patient need a safe tray?: No
10/27/24 11:41
Electrocardiogram (*1) Urgent
Reason for Study: Shortness of Breath
EKG- Treatment ONCE
10/27/24 11:46
COVID-19 Antigen Urgent
Source: Nasal Swab
Complete Blood Count/With Diff Urgent
Comprehensive Metabolic Panel Urgent
Magnesium Urgent
NT-proBNP Urgent
10/27/24 11:47
CR Chest Portable - 1 View Urgent
Comment:
Reason For Exam: sob
Reason Study Needs to be Portable: Patient Unstable
10/27/24 11:51
Dexamethasone Sod Phosphate [Decadron] 6 mg IV NOW STA
Ipratropium/Albuterol Sulfate [Duoneb] 3 ml INH R NOW STA
10/27/24 11:52
Ipratropium/Albuterol Sulfate [Duoneb] 3 ml .ROUTE .STK-MED ONE
10/27/24 12:44
Add On- LAB Routine
Tests Added?: BNP, Mg levels
10/27/24 13:48
Admit/Transfer Patient As Directed
Co-Sign Provider:
Level of Care: Inpatient admission
Assign to:: Telemetry
Physician / Group: angie joseph
Diagnosis: COPD exac
Reason for Telemetry: Medication for Arrhythmia
Date to Stop Telemetry: 10/29/24
Time to Stop Telemetry: 11:00
Reason for Hospitalization: COPD exac
Expected length of stay greater than two midnights?: Yes
ELOS- Estimated Length of Stay in days: 2
I certify the patient meets the requirements for IP care: Yes
10/27/24 13:50
PRN Pain Medication Management As Directed
May give lesser potent ordered pain med per pt: Yes
preference::
Protocol:: Medication orders for pain may be administered in a
manner that supports deferring to patient preference
when the pt is:
- Requesting an ordered lesser potent pain medication.
Least to most potent pain medications are defined
as: acetaminophen < NSAID < tramadol < opioids
(morphine, oxycodone, hydromorphone).
- Requesting a lesser dose of the same medication IF
ORDERED.
- Requesting a less intrusive route of administration
if both routes are prescribed by the provider (PO <
IV).
10/27/24 13:51
Code Status As Directed
Resuscitation Status: Do not resuscitate
Reached after discussion with pt or family/Healthcare POA: Yes
DNR Bracelet Application ONCE
10/27/24 14:10
Doxycycline [Vibramycin] 100 mg PO Q12
10/27/24 14:16
Influenza A+B Rapid Molecular Routine
TATIANA Source: Nasal Swab
Specimen Description:
10/27/24 15:45
Acetaminophen [Tylenol] 650 mg PO Q4HPRN PRN mild pain/temp >100
Budesonide [Pulmicort] 0.5 mg INH R BID
Ipratropium/Albuterol Sulfate [Duoneb] 3 ml INH R Q4HPRN PRN
10/27/24 15:45
Respiratory Culture/Gram Stain Routine
TATIANA Source: Sputum
Specimen Description:
Activity As Directed
Activity Level: Ambulate
Intake/ Output As Directed
Frequency: Per unit guidelines
Vital Signs As Directed
Frequency: Per unit guidelines
Copd Education [RESP] Routine
Ot Eval And Treat Routine
Pt Eval And Treat Routine
Activity Level: Out of Bed- Chair
Speech Therapy Eval & Treat Routine
DX Deep Vein Thrombosis Video Routine
10/27/24 16:00
Ipratropium/Albuterol Sulfate [Duoneb] 3 ml INH R QID
10/27/24 18:00
Enoxaparin Sodium [Lovenox] 30 mg SC QPM
10/27/24 20:00
Dexamethasone Sod Phosphate [Decadron] 4 mg IV Q12
Guaifenesin [Mucinex] 600 mg PO Q12
10/28/24 06:00
Basic Metabolic Panel IN AM
10/28/24 08:00
Amlodipine [Norvasc] 10 mg PO DAILY
10/29/24 06:00
Basic Metabolic Panel IN AM
10/29/24 08:00
Cholecalciferol (Vitamin D3) [VITAMIN D3 (cholecalciferol)] 125 mcg PO MO
10/29/24 11:00
DC Protocol for Telemetry ONCE
10/30/24 06:00
Basic Metabolic Panel IN AM
Abnormal Lab Results
10/27/24
11:46
MCHC 32.6 L g/dL
(33.0-37.0)
MPV 10.5 H fL
(7.4-10.4)
Absolute Monos (auto) 0.8 H 10^3/uL
(0.1-0.6)
Chloride 109 H mmol/L
(98-107)
BUN 20 H mg/dl
(7-17)
Glucose 117 H mg/dl
(70-99)
10/27/24 11:46
10/27/24 11:46
Vital Signs
Initial and Last Documented VS:
Initial Vital Signs
Pulse Resp BP Pulse Ox
118 22 157/88 89
10/27/24 11:31 10/27/24 11:31 10/27/24 11:31 10/27/24 11:31
Last Documented Vital Signs
Temp Pulse Resp BP Pulse Ox
97.3 F 81 18 188/90 96
10/27/24 15:55 10/27/24 16:40 10/27/24 16:13 10/27/24 16:40 10/27/24 16:13
MDM/Problems Addressed
MDM/Problems Addressed:
Discussed patient's son, Avila Cifuentes, power of transactional attorney, and discussed all findings. CODE STATUS: DNR/DNI.
History and exam consistent with likely COPD exacerbation, contributed by component of aspiration. Patient placed on BiPAP with improvement. Patient will be admitted for further evaluation and treatment.
*Pulse Oximetry
SaO2: 94
Nasal Cannula flow liters per minute: 4
Patient hypoxic: yes
*EKG
Interpreted by ED Provider?: Yes
EKG Intrepretation Date: 10/27/24
Heart Rate: 108
Rate: normal
Rhythm: sinus
[place]: left axis deviation
*Critical Care Note
Total Time (30-74mins, 75-104mins- exclusive of procedures): Not Applicable
ED Attending Note
-
Portions of this chart may have been created with voice recognition software.� Occasional wrong word or��sound alike� substitutions may have occurred due to the inherent limitations of voice recognition software.
Discharge Plan
Departure
Patient Disposition: Admit
Date of Disposition: 10/27/24
Time of Disposition: 12:14
Admit to: Telemetry
Presentation/result/management discussed w/ accepting MD/DO: Hospitalist
Discharge Problem:
Hypoxia, COPD exacerbation
Interventions
Interventions:
*Risk Screen - Suicide Last Done: 10/27/24 16:55
*General Assessment Last Done: 10/27/24 11:36
*Neglect/Abuse Screening Last Done: 10/27/24 11:37
*ED- Fall Risk Assessment Last Done: 10/27/24 11:43
*ED COVID-19 Vaccine History Last Done: 10/27/24 16:55
*Nursing Disposition Last Done: 10/27/24 15:25
ED- Cardiac Assessment Last Done: 10/27/24 11:39
ED- Pulmonary Assessment Last Done: 10/27/24 11:39
Discharge Date and Time
Discharge Date/Time: 10/27/24 15:34
[2024-10-27 11:58] LABS: Hematocrit 42.6 % (37.0-47.0); Hemoglobin 13.9 g/dL (12.0-16.0); Mean Corp Hgb Conc. 32.6 g/dL (33.0-37.0); Mean Corpuscular Volume 89.1 fL (81.0-99.0); Nucleated Red Blood Cells % 0 %; Platelet Count 272 10^3/uL (130-400); Red Cell Dist. Width 14.4 % (11.5-14.5)
[2024-10-27] MEDS: DECADRON 6 MG IV (12:08)
[2024-10-27 12:09] LABS: ALT (SGPT) 12 U/L (0-35); AST (SGOT) 21 U/L (14-36); Albumin 4.6 g/dl (3.5-5.0); Alkaline Phosphatase 90 U/L (38-126); Blood Urea Nitrogen 20 mg/dl (7-17); Calcium 10.0 mg/dl (8.4-10.2); Carbon Dioxide 30 mmol/L (22-30); Chloride 109 mmol/L (98-107); Glucose 117 mg/dl (70-99); Magnesium 1.9 mg/dl (1.6-2.3); Potassium 3.7 mmol/L (3.5-5.1); Sodium 145 mmol/L (135-145); Total Protein 7.9 g/dl (6.3-8.2); eGFR > 60.00
[2024-10-27] MEDS: DUONEB 3 ML INH ×3 (12:09→19:17)
[2024-10-27 12:15] LABS: COVID-19 Antigen Negative (Negative)
[2024-10-27] MEDS: VIBRAMYCIN 100 MG PO ×2 (14:26→20:12)
--- NOTE | 2024-10-27 16:08 | HPS.HSE ---
Family Physician
-
Family Physician: NOT KNOW UNKNOWN - PT DOES
Chief Complaint
-
SOB
History of Present Illness
84 year-old female with a past medical history of Alzheimer's dementia, stroke with residual left-sided hemiparesis, COPD, and hypertension who presents with shortness of breath. Patient lives with her 2 sons, history is obtained from her son.
Patient has been having shortness of breath with coughing for several days. Her cough is nonproductive. Today, her breathing worsened, and her sons took her to the ER. She does eat a modified chopped diet. No fever, no vomiting. She was satting
87% on room air, and placed on BiPAP in the ER. She has received IV dexamethasone and a breathing treatment in the ER.
Medical History
Past Medical History
Past Medical History: Reports Other
Additional Past Medical History:
Stroke with residual left-sided hemiparesis
Alzheimer's dementia
Dysphagia
COPD
Essential hypertension
Anxiety/depression
Hyperlipidemia
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
Past Surgical History: Reports Cholecystectomy
Additional Past Surgical History:
Hysterectomy
Social History
Tobacco: Former Smoker
Alcohol: None
Drug: None
Family History
Family History: Not pertinent
Allergies / Home Medications
Allergies reflects when Allergies were last updated in [facility] [employer].
Home Medications with original date entered in [facility]
Allergy/Medication List:
Allergies
Allergy/AdvReac Type Severity Reaction Status Date / Time
aspirin Allergy internal Verified 10/27/24 12:27
bleeding,avoids
due to GI
bleed
codeine Allergy Rash 'very Verified 10/27/24 12:27
sick'
Iodinated Contrast Media Allergy LIVER Verified 10/27/24 12:27
(Iodinated Contrast Media - FAILURE;
IV Dye) lip
swelling
Penicillins Allergy Rash Verified 10/27/24 12:27
Home Medications Table - record
�Medication �Instructions �Recorded �Confirmed
cholecalciferol (vitamin D3) 1,250 1,250 mcg PO MO Supplement 12/08/23 10/27/24
mcg (50,000 unit) tablet
acetaminophen 325 mg tablet 650 mg PO Q4HPRN PRN mild 12/16/23 10/27/24
(Tylenol) pain/temp >100
amlodipine 5 mg tablet 10 mg PO DAILY 10/27/24 10/27/24
Review of Systems
-
Unable to obtain full review of systems at this time due to: Dementia
Physical Exam
Vital Signs
Vital Signs
Temp Pulse Resp BP Pulse Ox
97.3 F 102 20 188/90 96
10/27/24 15:55 10/27/24 15:55 10/27/24 15:55 10/27/24 15:55 10/27/24 15:55
Physical Exam
General: No Apparent Distress
Respiratory: Wheezes
Cardiac: S1/S2 and Tachycardia
GI: Soft, Non Tender and Non Distended
Musculoskeletal: No Clubbing and No Edema
Neuro: Awake and Alert
Psych: Calm and Apparent Dementia
Laboratory Results
-
10/27/24 11:46
10/27/24 11:46
Laboratory Results
Total Bilirubin 0.5 mg/dl (0.2-1.3) 10/27/24 11:46
AST 21 U/L (14-36) 10/27/24 11:46
ALT 12 U/L (0-35) 10/27/24 11:46
Alkaline Phosphatase 90 U/L (38-126) 10/27/24 11:46
Impression/Plan
-
HPI: 84 year-old female with a past medical history of Alzheimer's dementia, stroke with residual left-sided hemiparesis, COPD, and hypertension who presents with shortness of breath. Patient lives with her 2 sons, history is obtained from her son.
Patient has been having shortness of breath with coughing for several days. Her cough is nonproductive. Today, her breathing worsened, and her sons took her to the ER. She does eat a modified chopped diet. No fever, no vomiting. She was
satting 87% on room air, and placed on BiPAP in the ER. She has received IV dexamethasone and a breathing treatment in the ER.
#Acute hypoxic respiratory insufficiency
#Acute on chronic COPD exacerbation
COVID-negative, influenza negative
Status post BiPAP in the ER, she was satting 87% on room air
Currently on 4 L, wean as tolerated. She does not wear oxygen at home
Continue IV dexamethasone, bronchodilators, add budesonide nebs, Mucinex, doxycycline
Check sputum Gram stain and cultures if she is able to provide 1
#Probable aspiration pneumonitis
#Dysphagia
BNP 657, not likely pulmonary edema
Continue chopped diet, consult SPL
#History of stroke with residual left-sided weakness
She is wheelchair-bound at baseline
PT/OT
#Alzheimer's dementia
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
Resides with her sons
Avoid Haldol
#Essential hypertension
Continue home amlodipine 10 mg daily
Add lisinopril 10 mg at bedtime with hold parameters
#Anxiety/depression
Monitor
DVT prophylaxis�subcu Lovenox
DNR
Updated son on phone 10/27
Total time spent to see the patient on the floor, examine the patient, review data and lab results, discuss treatment plan with patient, nursing staff around 76 minutes.
[2024-10-27] MEDS: PULMICORT INH (16:09)
[2024-10-27] MEDS: NORVASC 10 MG PO (16:40)
[2024-10-27] MEDS: LOVENOX 30 MG SC (16:41)
--- NOTE | 2024-10-27 17:29 | PTOTSP ---
ST Acute Care Evaluation
Pt is currently presenting with clinical signs of mild oropharyngeal dysphagia characterized by prolonged mastication and bolus formation, reduced oral control for managing ingestion of sequential sips, and immediate coughing following ingestion of
sequential sips, as well as occasional coughing s/p ingestion of PO intake (liquids>solids) that could be indicative of airway invasion.
Recommendations:
- Continue with soft bite sized solids, thin liquids but NO STRAWS and SMALL SINGLE SIPS ONLY, with meds whole in puree.
- Aspiration precautions: 1:1 supervision with ALL PO INTAKE; HOB fully upright; small bites/sips; slow intake rate - monitor for impulsivity; alternate solids/liquids; oral/denture care 2-3x/day.
- VIDEO NEWS EDITOR to f/u re: diet tolerance, to reinforce compensatory strategies and aspiration precautions, as well as to re-assess and determine whether pt would benefit from an updated instrumental swallow study (earliest this could be completed would be
Tuesday).
[2024-10-27] MEDS: PULMICORT 0.5 MG INH (19:17)
--- NOTE | 2024-10-27 19:30 | PTCARENOTE ---
Pt received from day shift RN at 1915. Pt pleasant, AAOx1, VSS, absent of pain, and resting comfortably in bed. Pt receptive to room and call henderson. Pt bed in lowest position and call henderson within reach. Pt educated on importance of call henderson usage.
Pt relays understanding and cooperation, however reinforcement needed due to hx of dementia. Pt bedbound. Will continue with current plan of care.
[2024-10-27] MEDS: DECADRON 4 MG IV (20:10)
[2024-10-27] MEDS: MUCINEX 600 MG PO (20:12)
[2024-10-27] MEDS: ZESTRIL 10 MG PO (21:39)
[2024-10-28] VITALS (12 sets, daily range): BP systolic 136–180; BP diastolic 64–97; PULSE 114; O2SAT 98
[2024-10-28] MEDS: PULMICORT 0.5 MG INH ×2 (07:42→20:06)
[2024-10-28] MEDS: DUONEB 3 ML INH (07:42)
[2024-10-28 08:13] LABS: Blood Urea Nitrogen 27 mg/dl (7-17); Calcium 9.7 mg/dl (8.4-10.2); Carbon Dioxide 32 mmol/L (22-30); Chloride 107 mmol/L (98-107); Estimated Creatinine Clearance 37 ml/min; Glucose 123 mg/dl (70-99); Potassium 3.8 mmol/L (3.5-5.1); Sodium 145 mmol/L (135-145); eGFR > 60.00
[2024-10-28] MEDS: VIBRAMYCIN 100 MG PO ×2 (09:01→19:44)
[2024-10-28] MEDS: DECADRON 4 MG IV (09:01)
[2024-10-28] MEDS: MUCINEX 600 MG PO ×2 (09:01→19:44)
[2024-10-28] MEDS: NORVASC 10 MG PO (09:01)
--- NOTE | 2024-10-28 09:10 | W.PN.HOSP.TC ---
Today's Communication/Plan
-
Wean IV steroids
Assessment / Plan
Assessment / Plan
HPI: 84 year-old female with a past medical history of Alzheimer's dementia, stroke with residual left-sided hemiparesis, COPD, and hypertension who presents with shortness of breath. Patient lives with her 2 sons, history is obtained from her son.
Patient has been having shortness of breath with coughing for several days. Her cough is nonproductive. Today, her breathing worsened, and her sons took her to the ER. She does eat a modified chopped diet. No fever, no vomiting. She was
satting 87% on room air, and placed on BiPAP in the ER. She has received IV dexamethasone and a breathing treatment in the ER.
#Acute hypoxic respiratory insufficiency
#Acute on chronic COPD exacerbation
COVID-negative, influenza negative
Status post BiPAP in the ER, she was satting 87% on room air
Transitioned to 4 L yesterday, now weaned to 2 L, continue to wean as tolerated, she does not wear oxygen at home
Wean IV dexamethasone, continue budesonide nebs, Mucinex, doxycycline D2/5
Change DuoNebs to ipratropium 3 times daily due to her tremors
#Probable aspiration pneumonitis
#Dysphagia
BNP 657, not likely pulmonary edema
Her weight is also less this admission
She eats a chopped diet at home
SPL recommends soft/bite-size solids with thin liquids, no straws and small single sips only, with meds whole in pur�ed, aspiration precautions as well
#Right hand tremor
Change DuoNebs to ipratropium 3 times daily due to her tremors
Unable to start beta-coreen secondary to her COPD exacerbation
#History of stroke with residual left-sided weakness
She is wheelchair-bound at baseline
PT/OT - pt at baseline
#Alzheimer's dementia
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
Resides with her sons
Avoid Haldol
#Essential hypertension
Continue home amlodipine 10 mg daily
Added lisinopril 10 mg at bedtime with hold parameters -can titrate this up as needed
#Anxiety/depression
Monitor
DVT prophylaxis�subcu Lovenox
DNR
Updated son on phone 10/28
Total time spent to see the patient on the floor, examine the patient, review data and lab results, discuss treatment plan with patient, nursing staff around 50 minutes.
Physical Exam
General: No acute distress
HEENT: Normocephalic, Atraumatic, EOMI, MMM
Respiratory: Coarse breath sounds with scattered wheezing, improved from admission
Cardiac: Normal S1/S2, Regular Rate and Rhythm
GI: Soft, Nontender, Nondistended, Normal Bowel Sounds
Extremities: No Clubbing, Cyanosis, or Edema
Neuro:
Pleasantly confused
Left-sided weakness noted
Right hand tremor
Anticipated Discharge: 24 - 48 hours
Subjective/Interval History
-
Date of Service: October 28, 2024
Patient continues to have a dry cough. Denies chest pain, denies shortness of breath. No fever, no vomiting.
Objective Data
-
Labs:
Laboratory Results
10/28/24
07:10
Sodium 145
Potassium 3.8
Chloride 107
Carbon Dioxide 32 H
BUN 27 H
Creatinine 0.9
Glucose 123 H
Calcium 9.7
Vital Signs:
Vital Signs
Temp Pulse Resp BP Pulse Ox
98 F 92 20 174/70 96
10/28/24 07:32 10/28/24 07:44 10/28/24 07:44 10/28/24 07:32 10/28/24 07:44
[2024-10-28] MEDS: LOPRESSOR 2.5 MG IV (11:05)
[2024-10-28] MEDS: ATROVENT NEBULES 0.5 MG INH ×2 (14:25→20:05)
--- NOTE | 2024-10-28 15:53 | CHAP ---
Lyric was welcoming; she teared up as we prayed, glad to have a visit. Emotional and spiritual support provided.
[2024-10-28] MEDS: LOVENOX 30 MG SC (17:55)
[2024-10-28] MEDS: ZESTRIL 10 MG PO (19:44)
[2024-10-29] VITALS (8 sets, daily range): BP systolic 110–185; BP diastolic 67–99; BMI 20.6
[2024-10-29] MEDS: ATROVENT NEBULES 0.5 MG INH (07:38)
[2024-10-29] MEDS: PULMICORT 0.5 MG INH ×2 (07:38→20:32)
[2024-10-29] MEDS: NORVASC 10 MG PO (08:18)
[2024-10-29] MEDS: VIBRAMYCIN 100 MG PO ×2 (08:18→19:35)
[2024-10-29] MEDS: MUCINEX 600 MG PO ×2 (08:18→19:35)
[2024-10-29] MEDS: DECADRON 4 MG IV (08:20)
[2024-10-29 08:35] LABS: Blood Urea Nitrogen 42 mg/dl (7-17); Calcium 10.1 mg/dl (8.4-10.2); Carbon Dioxide 29 mmol/L (22-30); Chloride 106 mmol/L (98-107); Estimated Creatinine Clearance 31 ml/min; Glucose 88 mg/dl (70-99); Potassium 4.1 mmol/L (3.5-5.1); Sodium 143 mmol/L (135-145); eGFR 49.24
[2024-10-29] MEDS: VITAMIN D3 (cholecalciferol) 125 MCG PO (08:49)
--- NOTE | 2024-10-29 11:39 | W.PN.HOSP.TC ---
Today's Communication/Plan
-
Change steroids to prednisone
Stop oqnlly-ryu-foeuw nebs
Assessment / Plan
Assessment / Plan
Gen-awake, alert, confused, NAD
HEENT-NC, AT, anicteric, clear oral mm
Neck-supple
CV-reg, no M, +S1/S2
Lungs-mild bilateral expiratory wheezing
Abd-soft, NT, ND
Ext-no edema
Musculoskeletal-no cyanosis, clubbing
Skin-warm and dry
Neuro-grossly non-focal
Psych-calm, cooperative
Acute hypoxic respiratory failure -due to acute COPD exacerbation. Clinically improving, wheezing slightly on exam.
Acute on chronic COPD exacerbation
COVID-negative, influenza negative
Status post BiPAP in the ER, she was satting 87% on room air
Oxygenation improved, now on room air.
Will change steroids to prednisone 40 mg daily and wean.
Will change inhalers to every 4 hours as needed only given sinus tachycardia.
Probable aspiration pneumonitis
Dysphagia
BNP 657, not likely pulmonary edema
Her weight is also less this admission
She eats a chopped diet at home
SPL recommends soft/bite-size solids with thin liquids, no straws and small single sips only, with meds whole in pur�ed, aspiration precautions as well
Right hand tremor
Unable to start beta-coreen secondary to her COPD exacerbation
History of stroke with residual left-sided weakness
She is wheelchair-bound at baseline
PT/OT - pt at baseline
Alzheimer's dementia
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
Resides with her sons
Avoid Haldol
Essential hypertension
Continue home amlodipine 10 mg daily
Added lisinopril 10 mg at bedtime with hold parameters -can titrate this up as needed
Anxiety/depression
Monitor
DVT prophylaxis�subcu Lovenox
DNR
Dispo -possible discharge tomorrow if clinically improved.
Updated patient's son Avila on the phone. All questions answered.
Anticipated Discharge: Within 24 hours
Subjective/Interval History
-
Date of Service: October 29, 2024
Patient seen and examined, remains confused. No complaints.
Objective Data
-
Labs:
Laboratory Results
10/29/24
06:03
Sodium 143
Potassium 4.1
Chloride 106
Carbon Dioxide 29
BUN 42 H
Creatinine 1.1 H
Glucose 88
Calcium 10.1
Vital Signs:
Vital Signs
Temp Pulse Resp BP Pulse Ox
98.3 F 120 18 136/85 94
10/29/24 11:14 10/29/24 11:14 10/29/24 11:14 10/29/24 11:14 10/29/24 11:14
I&O
10/28/24 10/29/24 10/30/24
06:59 06:59 06:59
Intake Total 180 / 180
Output Total 100 / 100
Balance 80 / 80
Review of Systems
-
Unable to obtain full review of systems at this time due to: Dementia
History Source: Patient
All other systems: Reviewed and negative
[2024-10-29] MEDS: DELTASONE 20 MG PO (12:45)
[2024-10-29] MEDS: LOVENOX 30 MG SC (16:58)
[2024-10-29] MEDS: MELATONIN 5 MG PO (19:35)
[2024-10-29] MEDS: ZESTRIL 10 MG PO (19:35)
[2024-10-30 06:00] VITALS: BMI 20.3
[2024-10-30 07:15] VITALS: BP 167/78
[2024-10-30] MEDS: PULMICORT 0.5 MG INH ×2 (08:08→19:26)
[2024-10-30] MEDS: NORVASC 10 MG PO (08:19)
[2024-10-30] MEDS: DELTASONE 40 MG PO (08:20)
[2024-10-30] MEDS: MUCINEX 600 MG PO ×2 (08:20→20:36)
[2024-10-30] MEDS: VIBRAMYCIN 100 MG PO ×2 (08:20→20:36)
[2024-10-30 09:46] LABS: Blood Urea Nitrogen 55 mg/dl (7-17); Calcium 9.5 mg/dl (8.4-10.2); Carbon Dioxide 29 mmol/L (22-30); Chloride 105 mmol/L (98-107); Estimated Creatinine Clearance 28 ml/min; Glucose 85 mg/dl (70-99); Potassium 4.4 mmol/L (3.5-5.1); Sodium 139 mmol/L (135-145); eGFR 44.36
[2024-10-30 10:04] VITALS: BP 145/69
--- NOTE | 2024-10-30 10:38 | W.PN.HOSP.TC ---
Today's Communication/Plan
-
Continue steroids
Add back [id number]-mxp-gliyg nebs
Mucinex
Chest PT
Assessment / Plan
Assessment / Plan
Gen-sleeping but arousable, NAD
HEENT-NC, AT, anicteric, clear oral mm
Neck-supple
CV-reg, no M, +S1/S2
Lungs-bilateral rhonchi, wheezing
Abd-soft, NT, ND
Ext-no edema
Musculoskeletal-no cyanosis, clubbing
Skin-warm and dry
Neuro-grossly non-focal
Psych-calm, cooperative
Acute hypoxic respiratory failure -due to acute COPD exacerbation. Oxygenation improved. Stable on room air.
Acute on chronic COPD exacerbation -worsening rhonchi and wheezing today.
COVID-negative, influenza negative
Status post BiPAP in the ER, she was satting 87% on room air
Continue prednisone.
Resume knfrlv-udi-ydost nebs, continue as needed as well.
Probable aspiration pneumonitis
Dysphagia
BNP 657, not likely pulmonary edema
Her weight is also less this admission
She eats a chopped diet at home
SPL recommends soft/bite-size solids with thin liquids, no straws and small single sips only, with meds whole in pur�ed, aspiration precautions as well
Right hand tremor
Unable to start beta-coreen secondary to her COPD exacerbation
History of stroke with residual left-sided weakness
She is wheelchair-bound at baseline
PT/OT - pt at baseline
Alzheimer's dementia
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
Resides with her sons
Avoid Haldol
Essential hypertension
Continue home amlodipine 10 mg daily
Stop further lisinopril given rising creatinine.
Anxiety/depression
Monitor
DVT prophylaxis�subcu Lovenox
DNR
Dispo -not ready for discharge yet.
Anticipated Discharge: > 48 hours
Subjective/Interval History
-
Date of Service: October 30, 2024
Patient seen and examined. No complaints. Feeling sleepy.
Objective Data
-
Labs:
Laboratory Results
10/30/24
07:49
Sodium 139
Potassium 4.4
Chloride 105
Carbon Dioxide 29
BUN 55 H
Creatinine 1.2 H
Glucose 85
Calcium 9.5
Vital Signs:
Vital Signs
Temp Pulse Resp BP Pulse Ox
97.5 F 86 20 145/69 96
10/30/24 07:15 10/30/24 10:04 10/30/24 07:15 10/30/24 10:04 10/30/24 08:30
I&O
10/29/24 10/30/24 10/31/24
06:59 06:59 06:59
Intake Total 180 / 180 360 / 360
Output Total 100 / 100 200 / 200
Balance 80 / 80 160 / 160
Review of Systems
-
History Source: Patient
All other systems: Reviewed and negative
[2024-10-30] MEDS: DUONEB INH (12:21)
[2024-10-30] MEDS: DUONEB 3 ML INH ×2 (14:54→19:25)
[2024-10-30 15:15] VITALS: BP 105/49
--- NOTE | 2024-10-30 16:04 | CM ---
Addendum entered by Meghan Wagner 10/30/24 16:23:
Pt lives on the 1st floor of 2 story home with 2 sons. Avila is caregiver for 10 yrs. Hx of HC, SNF ([facility]) and DME. DME: wheelchair, transport chair, hospital bed, grab bars in shower. Confirmed there is no PCP at this time, Rx,,
insurance and rug coverage. No insecurities identified. Worsening breath sounds today.
Original Note:
Chart reviewed. Spoke son in order to complete IA. Son states GOC is to return home. Pt still requiring care for aspiration PN on PO ABX at this.time. Son is upset that that the doctor has not reached out to him to give him and update on the pt
status. Dr. Wiggins has left the day. Son notified. Provided update to son from hospitalists progress note. Pt rec no skilled needs.
Son is open to VN services at discharge. Choices given, son selected VN which pt has previously been in their care
Plan: Home with possible VN
[2024-10-30] MEDS: LOVENOX 30 MG SC (17:20)
[2024-10-30] MEDS: MELATONIN 5 MG PO (20:36)
[2024-10-30 23:16] VITALS: BP 102/81
[2024-10-31 05:32] VITALS: BMI 20.4
[2024-10-31] MEDS: PULMICORT 0.5 MG INH ×2 (07:44→19:16)
[2024-10-31] MEDS: DUONEB 3 ML INH ×4 (07:44→19:16)
[2024-10-31 08:00] VITALS: BP 172/83
--- NOTE | 2024-10-31 08:33 | PN.CDI ---
CDI
- -
CDI:
Physician Documentation Request
Admit Date: 10/27/24 14:35
Dear Doctor Feliciano,
Patient admitted for COPD exacerbation.
Laboratory Tests
10/28/24 10/30/24
07:10 07:49
Creatinine 0.9 1.2 H
Clarify which of the following accurately represents the patient's renal status:
YIN
Rise in creatinine
Other
Criteria for YIN*
1 Increase in serum creatinine by > or = to 0.3 mg/dL (> or = to 26.5 micromol/L) within 48 hours, OR
2 Increase in serum creatinine to > or = to 1.5 times baseline, which is known or presumed to have occurred within 7 days, OR
3 Urine volume < 0.5 nL/kg/hour for six hours
Use of terms such as suspected, likely, concern for, or probable (associated with a specific diagnosis that is being evaluated, monitored, or treated as if it exists) are acceptable and can be coded in the inpatient setting, when documented at the
time of discharge.
Thank you,
Christina Miller RN, BSN
CDI Specialist
Available via [place] text
Please use your independent medical judgment in providing your response.
*Source: Kidney Disease: Improving Global Outcomes (KDIGO) 2012
[2024-10-31] MEDS: DELTASONE 40 MG PO (08:55)
[2024-10-31] MEDS: MUCINEX 600 MG PO ×2 (08:55→19:54)
[2024-10-31] MEDS: VIBRAMYCIN 100 MG PO ×2 (08:55→19:54)
[2024-10-31] MEDS: NORVASC 10 MG PO (08:55)
[2024-10-31 09:26] LABS: Blood Urea Nitrogen 50 mg/dl (7-17); Calcium 9.4 mg/dl (8.4-10.2); Carbon Dioxide 31 mmol/L (22-30); Chloride 108 mmol/L (98-107); Estimated Creatinine Clearance 34 ml/min; Glucose 87 mg/dl (70-99); Potassium 4.1 mmol/L (3.5-5.1); Sodium 142 mmol/L (135-145); eGFR 55.21
--- NOTE | 2024-10-31 10:57 | VNURNOTE ---
Addendum entered by Fany Madison RN 10/31/24 11:51:
Patient last saw Dr George Miranda / [facility] appt in August 2024. Spoke with Juanita who confirmed that Dr Miranda would sign for VN in community. Referral and CM updated.
Original Note:
Chart reviewed. Per notes, pt AAOx1. Home Health Liaison called patient's son Avila to discuss [facility] nurse/therapy, visits, schedule and homebound status. He is agreeable and understands that visits at home will be 2-3 x per week to assess and
teach medical management. Inquired who patient's PCP is. Avila said pt was seeing Dr George Miranda for televisits. It is very difficult to get her out of the house. Per Avila, she had a televisit a few months ago. Will follow up to ensure
she is current w/PCP. Son is aware [facility] would only be able to see pt if under care of PCP. Son is aware that [facility] will contact them for start of care in 1-2 days after discharge from .
[facility] referral completed in [facility].
--- NOTE | 2024-10-31 11:05 | W.PN.HOSP.TC ---
Addendum entered and electronically signed by Colt Wiggins DO 10/31/24 15:44:
Transient YIN -resolved.
Original Note:
Today's Communication/Plan
-
Continue current care
Assessment / Plan
Assessment / Plan
Gen-sleeping but arousable, NAD
HEENT-NC, AT, anicteric, clear oral mm
Neck-supple
CV-reg, no M, +S1/S2
Lungs-improved rhonchi bilaterally
Abd-soft, NT, ND
Ext-no edema
Musculoskeletal-no cyanosis, clubbing
Skin-warm and dry
Neuro-grossly non-focal
Psych-calm, cooperative
Acute hypoxic respiratory failure -due to acute COPD exacerbation. Oxygenation improved. Stable on room air.
Acute on chronic COPD exacerbation -rhonchi and wheezing much improved.
COVID-negative, influenza negative
Status post BiPAP in the ER, she was satting 87% on room air
Continue prednisone 40 mg daily.
Continue inhalers.
Probable aspiration pneumonitis
Dysphagia
BNP 657, not likely pulmonary edema
Her weight is also less this admission
She eats a chopped diet at home
SPL recommends soft/bite-size solids with thin liquids, no straws and small single sips only, with meds whole in pur�ed, aspiration precautions as well
Right hand tremor
Unable to start beta-coreen secondary to her COPD exacerbation
History of stroke with residual left-sided weakness
She is wheelchair-bound at baseline
PT/OT - pt at baseline
Alzheimer's dementia
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
Resides with her sons
Avoid Haldol
Essential hypertension
Continue home amlodipine 10 mg daily
Stop further lisinopril given rising creatinine. Creatinine improved to 1.0.
Anxiety/depression
Monitor
DVT prophylaxis�subcu Lovenox
DNR
Dispo -anticipate discharge tomorrow morning with VN. Updated patient's son on the phone. Updated case management.
Anticipated Discharge: Within 24 hours
Subjective/Interval History
-
Date of Service: October 31, 2024
Patient seen and examined. No new complaints.
Objective Data
-
Labs:
Laboratory Results
10/31/24
07:24
Sodium 142
Potassium 4.1
Chloride 108 H
Carbon Dioxide 31 H
BUN 50 H
Creatinine 1.0
Glucose 87
Calcium 9.4
Vital Signs:
Vital Signs
Temp Pulse Resp BP Pulse Ox
97.8 F 88 16 172/83 97
10/31/24 08:00 10/31/24 08:00 10/31/24 08:00 10/31/24 08:00 10/31/24 08:00
I&O
10/30/24 10/31/24 11/01/24
06:59 06:59 06:59
Intake Total 360 / 360 960 / 960
Output Total 200 / 200
Balance 160 / 160 960 / 960
Review of Systems
-
History Source: Patient
All other systems: Reviewed and negative
--- NOTE | 2024-10-31 12:58 | CM ---
Reviewed chart. Discharge planned for tomorrow. Pt and son have chosen [facility] post discharge. Son has provided PCP information and set up [facility] for 11/01/24 at 11.00-11:30. Son will be present for transferring patient into wheelchair both
in the room and on the [facility] Bus.
Plan: D/C to home with [facility]
--- NOTE | 2024-10-31 15:58 | PTCARENOTE ---
Patient OOb with assist x2. Patient with left arm contraction and left leg weakness. Patient is only able to stand and pivot. Patient very short term memory, chair arm maintained. 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
home with son. Her son is to bring in her wheelchair for the bus transport. [facility] will not take her without a wheelchair.
[2024-10-31 16:52] VITALS: BP 126/10
[2024-10-31] MEDS: LOVENOX 30 MG SC (17:35)
[2024-10-31] MEDS: MELATONIN 5 MG PO (19:54)
[2024-10-31 23:21] VITALS: BP 152/66
[2024-11-01 07:00] VITALS: BP 164/69
[2024-11-01] MEDS: PULMICORT 0.5 MG INH (07:28)
[2024-11-01] MEDS: DUONEB 3 ML INH (07:29)
[2024-11-01] MEDS: MUCINEX 600 MG PO (07:54)
[2024-11-01] MEDS: VIBRAMYCIN 100 MG PO (07:54)
[2024-11-01] MEDS: NORVASC 10 MG PO (07:55)
[2024-11-01] MEDS: DELTASONE 40 MG PO (07:55)
--- NOTE | 2024-11-01 10:02 | W.DS.TRANS ---
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
-
Discharge Instructions:
Discharge Diagnosis/Procedures COPD exacerbation, aspiration pneumonitis,
dysphagia, transient acute kidney injury
Diet Other diet
Additional Diets Soft, bite-size diet
Activity With assistance
Driving Restrictions No driving
Bathing Restrictions None
Other Services VN
Instructions:
Stand-Alone Forms:
Changes to Home Medications: No
Discharge Medications:
DC Medications w/original date entered in [employer]
cholecalciferol (vitamin D3) 1,250 mcg (50,000 unit) tablet 1,250 mcg PO MO Supplement 12/08/23
acetaminophen 325 mg tablet (Tylenol) 650 mg PO Q4HPRN PRN mild pain/temp >100 12/16/23
amlodipine 5 mg tablet 10 mg PO DAILY Blood Pressure 10/27/24
budesonide 0.5 mg/2 mL suspension for nebulization 0.5 mg (2 mL) inhalation R BID #60 mL 11/01/24
doxycycline hyclate 100 mg capsule 100 mg PO Q12 #4 caps 11/01/24
guaifenesin 600 mg tablet, extended release 12 hr 600 mg PO Q12 #0 tabs 11/01/24
ipratropium 0.5 mg-albuterol 3 mg (2.5 mg base)/3 mL nebulization soln 3 ml inhalation R Q4HPRN PRN wheezing or SOB #90 mL 11/01/24
prednisone 10 mg tablet 10 mg PO DIRECTED #18 tabs 11/01/24
Home Medication Changes
Pending Results: No
--- NOTE | 2024-11-01 10:03 | W.PN.HOSP.TC ---
Today's Communication/Plan
-
Discharge
Assessment / Plan
Assessment / Plan
Gen-sleeping but arousable, NAD
HEENT-NC, AT, anicteric, clear oral mm
Neck-supple
CV-reg, no M, +S1/S2
Lungs-improved rhonchi bilaterally
Abd-soft, NT, ND
Ext-no edema
Musculoskeletal-no cyanosis, clubbing
Skin-warm and dry
Neuro-grossly non-focal
Psych-calm, cooperative
Acute hypoxic respiratory failure -due to acute COPD exacerbation. Oxygenation improved. Stable on room air.
Acute on chronic COPD exacerbation -rhonchi and wheezing much improved.
COVID-negative, influenza negative
Status post BiPAP in the ER, she was satting 87% on room air
Continue prednisone 40 mg daily, start taper on discharge.
Continue inhalers. Prescription for nebulizer provided. According to family he was only on albuterol MDI as needed prior to admission.
Continue DuoNebs and budesonide on discharge.
Probable aspiration pneumonitis
Dysphagia
BNP 657, not likely pulmonary edema
Her weight is also less this admission
She eats a chopped diet at home
SPL recommends soft/bite-size solids with thin liquids, no straws and small single sips only, with meds whole in pur�ed, aspiration precautions as well
Right hand tremor -suspect related to anxiety. She has no tremor when I examine her from the doorway but as soon as she sees me she starts tremoring on both sides, worse on the right.
History of stroke with residual left-sided weakness
She is wheelchair-bound at baseline
PT/OT - pt at baseline
Alzheimer's dementia
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
Resides with her sons
Avoid Haldol
Essential hypertension
Continue home amlodipine 10 mg daily
Stop further lisinopril given rising creatinine. Creatinine improved to 1.0.
Anxiety/depression
Monitor
DVT prophylaxis�subcu Lovenox
DNR
Dispo -medically stable for discharge today with VN. Updated patient's son on the phone. Follow-up with PCP next week.
32 minutes spent in discharge process.
Anticipated Discharge: Today
Subjective/Interval History
-
Date of Service: November 01, 2024
Patient seen and examined. No complaints.
Objective Data
-
Vital Signs:
Vital Signs
Temp Pulse Resp BP Pulse Ox
97.7 F 83 16 164/69 96
11/01/24 07:00 11/01/24 07:29 11/01/24 07:29 11/01/24 07:00 11/01/24 07:29
I&O
10/31/24 11/01/24 11/02/24
06:59 06:59 06:59
Intake Total 960 / 960 840 / 840
Output Total 200 / 200
Balance 960 / 960 640 / 640
Review of Systems
-
History Source: Patient
All other systems: Reviewed and negative
--- NOTE | 2024-11-01 10:30 | CM ---
Addendum entered by Meghan Wagner 11/01/24 10:57:
Son at bedside, pt is now agreeable to go home. IMM given to son verbally since pt has Alzheimer's. Second son has arrived and is at bedside. Nebulizer script from DR. Boggs given to son- Avila.
Plan: D/c to home with [facility]
Original Note:
Reviewed chart. Pt is ready for discharge. CHAI hebert will pick up attendant 11:00-11:30. Spoke to son this morning about pt verbalizing that she wants to stay in the hospital; 'they didn't do a thing for me' Son stated he spoke to her this morning and she
was fine with the d/c plan. Son will call her again to discuss. Will give IMM to son when he arrives.
--- NOTE | 2024-11-05 10:16 | VNURNOTE ---
Late entry: Spoke with son regarding neb machine. Initially, he wanted to go through [facility]. This author checked with [facility] pharmacy, which has 1 machine in stock for $50. They will hold for patient. Son agreeable to that gonzalez and
will go to [facility] to filler picker machine. Shorty Gramajo confirmed Rx for solution at [facility].
== END 2024-11-01 11:26 | disposition home health service (06) | DRG 177 ==
LOC: 4 WEST ACU 14:35
PROVIDERS: ADMITTING PHYSICIAN Family Medicine; ATTENDING PHYSICIAN Hospitalist; EMERGENCY PHYSICIAN Emergency Medicine
PROC: 5A09357 Assistance with Respiratory Ventilation, Less than 24 Consecutive Hours, Continuous Positive Airway Pressure (ICD-10-PCS; 2024-10-27)
DX: J69.0 Pneumonitis due to inhalation of food and vomit (principal); J96.01 Acute respiratory failure with hypoxia; J44.1 Chronic obstructive pulmonary disease with (acute) exacerbation; I69.354 Hemiplegia and hemiparesis following cerebral infarction affecting left non-dominant side; N17.9 Acute kidney failure, unspecified; G30.9 Alzheimer's disease, unspecified; I10 Essential (primary) hypertension; F32.A Depression, unspecified; F41.9 Anxiety disorder, unspecified; E78.00 Pure hypercholesterolemia, unspecified; R13.10 Dysphagia, unspecified; Z66 Do not resuscitate; R25.1 Tremor, unspecified; Z99.3 Dependence on wheelchair; Z79.899 Other long term (current) drug therapy; Z87.891 Personal history of nicotine dependence; Z11.52 Encounter for screening for COVID-19
CPT/HCPCS: 71045; 80048; 80053; 83735; 83880; 85025; 87502; 87811; 92526; 92610; 93005; 94640; 94667; 96374; 97162; 97166; 99285